=== PATIENT | female | born 2005 | race Caucasian/White ===

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

== ENCOUNTER 2024-10-14 12:12 | Outpatient (CLI) | payer MEDICAID, SELFPAY ==
[2024-10-14 12:27] VITALS: BP 126/76; PULSE 102
[2024-10-14 12:48] VITALS: BP 123/77; PULSE 81
[2024-10-14 13:07] VITALS: BP 119/81; PULSE 97
== END 2024-10-14 13:22 | disposition home or self-care (01) ==
LOC: OPOB 12:17 → OBGYN 12:17
PROVIDERS: Visit Provider Family Medicine
DX: O36.5990 Maternal care for other known or suspected poor fetal growth, unspecified trimester, not applicable or unspecified (principal); Z3A.00 Weeks of gestation of pregnancy not specified
CPT/HCPCS: 59025; 99211

== ENCOUNTER 2024-10-17 08:29 | Outpatient (CLI) | payer MEDICAID, SELFPAY ==
[2024-10-17 08:38] VITALS: RESP 14
[2024-10-17 08:39] VITALS: BMI 20.2
[2024-10-17 09:04] VITALS: BP 120/75; PULSE 101
[2024-10-17 09:20] VITALS: BP 120/75; PULSE 101; O2SAT 98
== END 2024-10-17 09:20 | disposition home or self-care (01) ==
LOC: OPOB 08:29 → OBGYN 08:46
PROVIDERS: Visit Provider Family Medicine
DX: O36.5990 Maternal care for other known or suspected poor fetal growth, unspecified trimester, not applicable or unspecified (principal); Z3A.00 Weeks of gestation of pregnancy not specified
CPT/HCPCS: 59025

== ENCOUNTER 2024-10-21 14:25 | Outpatient (CLI) | payer BC, MEDICAID, SELFPAY ==
[2024-10-21 14:25] VITALS: BMI 20.7
[2024-10-21 14:35] VITALS: BP 122/69; PULSE 100
[2024-10-21 14:50] VITALS: BP 118/69; PULSE 91
== END 2024-10-21 15:00 | disposition home or self-care (01) ==
LOC: OPOB 14:30 → OBGYN 14:32
PROVIDERS: Visit Provider Family Medicine
DX: O36.5990 Maternal care for other known or suspected poor fetal growth, unspecified trimester, not applicable or unspecified (principal); Z3A.00 Weeks of gestation of pregnancy not specified
CPT/HCPCS: 59025

== ENCOUNTER 2024-10-24 11:23 | Outpatient (CLI) | payer BC, MEDICAID, SELFPAY ==
[2024-10-24 11:31] VITALS: BP 119/71; PULSE 82
[2024-10-24 11:40] VITALS: BP 119/59; PULSE 93; RESP 15; BMI 20.6
[2024-10-24 11:50] VITALS: BP 107/58; PULSE 85
[2024-10-24 12:00] VITALS: BP 104/57; PULSE 84
[2024-10-24 12:10] VITALS: BP 107/55; PULSE 83
[2024-10-24 12:20] VITALS: BP 107/55; PULSE 85; RESP 14
== END 2024-10-24 12:20 | disposition home or self-care (01) ==
LOC: OPOB 11:24 → OBGYN 11:25
PROVIDERS: Visit Provider Family Medicine
DX: O36.5990 Maternal care for other known or suspected poor fetal growth, unspecified trimester, not applicable or unspecified (principal); Z3A.00 Weeks of gestation of pregnancy not specified
CPT/HCPCS: 59025

== ENCOUNTER 2024-10-28 15:01 | Outpatient (CLI) | payer BC, MEDICAID, SELFPAY ==
[2024-10-28 14:57] VITALS: BMI 20.2
[2024-10-28 15:07] VITALS: BP 126/91; PULSE 93
[2024-10-28 15:23] VITALS: BP 121/81; PULSE 89
[2024-10-28 15:31] VITALS: BP 121/81; PULSE 89; RESP 17; O2SAT 98
== END 2024-10-28 15:31 | disposition home or self-care (01) ==
LOC: OPOB 15:01 → OBGYN 15:02
PROVIDERS: Visit Provider Family Medicine
DX: O36.5990 Maternal care for other known or suspected poor fetal growth, unspecified trimester, not applicable or unspecified (principal); Z3A.00 Weeks of gestation of pregnancy not specified
CPT/HCPCS: 59025; 99211

== ENCOUNTER 2024-10-31 08:37 | Outpatient (CLI) | payer BC, MEDICAID, SELFPAY ==
[2024-10-31 08:43] VITALS: BP 135/81; PULSE 75
[2024-10-31 09:03] VITALS: BP 123/78; PULSE 90
== END 2024-10-31 09:24 | disposition home or self-care (01) ==
LOC: OPOB 08:38 → OBGYN 08:39
PROVIDERS: Absent Provider Family Medicine; Visit Provider Family Medicine
DX: O36.5990 Maternal care for other known or suspected poor fetal growth, unspecified trimester, not applicable or unspecified (principal); Z3A.00 Weeks of gestation of pregnancy not specified
CPT/HCPCS: 59025

== ENCOUNTER 2024-11-02 00:14 | Outpatient (CLI) | payer BC, MEDICAID, SELFPAY ==
[2024-11-02 00:22] VITALS: BMI 20.7
[2024-11-02 00:35] VITALS: BP 143/87; PULSE 109
[2024-11-02 00:50] VITALS: BP 127/82; PULSE 110
[2024-11-02 01:06] VITALS: BP 118/74; PULSE 92
[2024-11-02 01:14] VITALS: BP 118/74; PULSE 92; RESP 16; O2SAT 98
== END 2024-11-02 01:17 | disposition home or self-care (01) ==
LOC: OPOB 00:18 → OBGYN 00:19
PROVIDERS: Visit Provider Family Medicine
DX: O26.899 Other specified pregnancy related conditions, unspecified trimester (principal); Z3A.00 Weeks of gestation of pregnancy not specified; R10.9 Unspecified abdominal pain
CPT/HCPCS: 59025; 99211

== ENCOUNTER 2024-11-04 11:26 | Outpatient (CLI) | payer BC, MEDICAID, SELFPAY ==
[2024-11-04 11:30] VITALS: BMI 21.0
[2024-11-04 11:46] VITALS: BP 120/78; PULSE 78
[2024-11-04 12:00] VITALS: BP 128/86; PULSE 85
[2024-11-04 12:15] VITALS: BP 128/86; PULSE 85; RESP 16
== END 2024-11-04 12:15 | disposition home or self-care (01) ==
LOC: OPOB 11:27 → OBGYN 11:32
PROVIDERS: Visit Provider Family Medicine
DX: O36.5990 Maternal care for other known or suspected poor fetal growth, unspecified trimester, not applicable or unspecified (principal); Z3A.00 Weeks of gestation of pregnancy not specified
CPT/HCPCS: 59025; 99211

== ENCOUNTER 2024-11-06 07:52 | Inpatient (IN) | payer BC, MEDICAID, SELFPAY ==
[2024-11-06] VITALS (73 sets, daily range): BP systolic 79–153; BP diastolic 45–97; PULSE 58–116; RESP 16; TEMP 36.6–36.8; O2SAT 100; BMI 21.1
[2024-11-06 08:32] LABS: Hematocrit 30.5 % (36-47); Hemoglobin 9.60 g/dL (12.4-14.8); Mean Corpuscular HGB Conc 31.5 g/dL (30-55); Mean Corpuscular Hemoglobin 23.4 pg (27-33); Mean Corpuscular Volume 74.2 fl (85-98); Nucleated Red Blood Cells % 0 %; Platelet Count 273 10^3/cmm (157-399); Red Blood Count 4.11 10^6/uL (3.85-5.65); White Blood Count 8.00 10^3/uL (4.5-13.0)
[2024-11-06] MEDS: oxytocin 30 UNIT/500 ML BAG IV (09:00)
[2024-11-06 09:18] LABS: PCP Screen Urine Negative (Negative)
[2024-11-06] MEDS: ROPivacaine syringe 100 MG/50 ML SYRINGE 10 MG EPIDURAL (15:35)
--- NOTE | 2024-11-06 15:39 | ANES.PREANE2 ---
Pre-Anesthetic Assessment Height/Weight: Height 1.65 m Weight 57.606 kg Temp Pulse Resp BP Pulse Ox O2 Del Method 98.3 F 72 16 131/81 100 Room Air 11/06/24 10:00 11/06/24 15:36 11/06/24 10:00 11/06/24 15:36 11/06/24 15:33 11/06/24 07:45 Preop Diagnosis: IUP labor epidural Familial anesthetic complications: none Was Beta Wilton taken within 24 hours: N/A Was Clonidine taken within 24 hours: N/A Social No alcohol and No tobacco Exam alert, oriented x 3 and clear to auscultation bilaterally Airway Mallampati: Class I Dentition: full (poor dentition) History/ROS No significant history except as noted Pulmonary None reported CV/HEM None reported None reported Hepatic None reported GI Gastroesophageal Reflux Disease Metabolic None reported Musc/skel None reported Neuropsych None reported Anesthetic Plan ASA status: 2 Anesthesia: Anesthesia Evaluation and Regional (specify below) (epidural ) Risk of > 500 ml blood loss (7ml/kg in children): Yes, adequate IV access and fluids planned Medications/Allergies Home Medications ?Medication ?Instructions ?Recorded ?Confirmed ?Last Taken ?Type 1 cap PO DAILY 10/21/24 11/06/24 11/03/24 20:00 History Tums 1,000 mg PO QID PRN Heartburn 10/21/24 11/06/24 10/20/24 History Zofran 4 mg PO TID PRN Nausea And Vomiting 10/21/24 11/06/24 Unknown History Allergies Allergy/AdvReac Type Severity Reaction Status Date / Time No Known Allergies Allergy Verified 11/06/24 10:38 Current Medications Generic Name Dose Route Start Last Admin Trade Name Freq PRN Reason Stop Dose Admin Dextrose/Lactated Ringer's 1,000 mls @ 125 mls/hr 11/06/24 08:30 11/06/24 14:22 Dextrose 5%-Lactated Ringers IV 0 mls/hr .Q8H ROBERT Infusion Oxytocin 30 unit in 500 mls @ 1 mls/hr 11/06/24 08:30 11/06/24 13:00 Pitocin IV 13 milliunit/min .Q24H ROBERT 13 mls/hr Protocol Titration 1 MILLIUNIT/MIN Lactated Ringer's 1,000 mls @ 999 mls/hr 11/06/24 12:35 11/06/24 15:26 Lactated Ringers IV 999 mls/hr .Q1H1M PRN Administration See label comments Ropivacaine 100 mg in 50 mls @ 10 mls/hr 11/06/24 12:45 11/06/24 15:35 Naropin Syringe EPIDURAL 10 mls/hr .Q5H ROBERT Administration PFSH Anesthesia Medical History (Updated 11/06/24 @ 19:47 by Jerri Murphy MD) No pertinent past medical history neghx:htn,dm,thyroid,dvt/pe PCP: none Surgical History No pertinent past surgical history Family History Family/Other Breast cancer paternal aunt Denies family history of Colon cancer Ovarian cancer Diabetes Heart disease Hypertension Uterine cancer Thyroid disease Stroke Hyperchloremia Social History Smoking and tobacco/nicotine status: current every day tobacco/nicotine user Female Reproductive History : 2 Data Anesthesia 11/06/24 08:09 Short CBC 11/06/24 Range/Units 08:09 WBC 8.00 (4.5-13.0) 10^3/uL Hgb 9.60 L (12.4-14.8) g/dL Hct 30.5 L (36-47) % MCV 74.2 L (85-98) fl Plt Count 273 (157-399) 10^3/cmm Neut % (Auto) 69.6 % Neut # (Auto) 5.58 (1.8-8.0) 10^3/uL Blood Bank 11/06/24 08:09 Blood Type A Positive Rho(D) Type Rh positive Antibody Screen Negative Anesthesia Procedures Epidural Time Out Performed: Yes Consents Signed: Procedure Consent Consent: requested by attending/covering physician, from patient, risks and benefits reviewed and patient agrees to proceed Lumbar Level: L4-L5 Epidural position: sitting Epidural procedure: sterile prep of area, 1% lidocaine to numb the area, 18 g needle, negative for paresthesia passed, neg for paresthesia, test dose given, 1.5% xylocaine 1:200k epi, 0.2% Ropivacaine bolus ml (5), placed PCEA, no systemic response, sterile dressing applied, L.U.D. no apparent complications and 0.2% Ropiavacaine @ mls/hr (10) Additional Comments: 1st attempt +CSF, 2nd attempt at L4/5 ANUJ 3.5cm, catheter easily threaded to 8cm, pt tolerated well, VS remained, pt reporting adequate analgesia with epidural
[2024-11-06] MEDS: ondansetron 2 mg/ML SDV 2 mL 4 MG IVP (18:26)
--- NOTE | 2024-11-06 19:39 | PM.OPHPUD ---
Labor & Delivery H&P Update Date of Procedure: November 06, 2024 Date H&P Performed: 11/03/24 Admission Diagnosis: Preop diagnosis: IUP at 39 weeks 1 day gestation Primary indication for procedure: Elective induction
--- NOTE | 2024-11-06 19:41 | P.PCNOB_ITS ---
Delivery Note: Date of delivery: November 06, 2024 Procedure: Normal spontaneous vaginal delivery Delivering Physician: Jerri Murphy MD Estimated blood loss (mL): 200 Pre-Delivery Course: The patient had routine care at [facility]. labs: Blood type A+ antibody negative, hepatitis B nonreactive, hepatitis C nonreactive, HIV nonreactive, rubella nonimmune, gonorrhea negative, chlamydia positive -treated- with 2 negative test of cures, RPR nonreactive, UDS positive for marijuana, Q denice low risk, she passed her glucose tolerance test, she was GBS negative. Delivery: This is a 19-year-old G2, P1 at 39 weeks 1 day gestation who was admitted for an elective induction. The patient's was complicated by third trimester borderline IUGR. I say borderline IUGR because 2 out of 4 measurements were less than the 5th percentile (one of them being abdominal circumference) however the overall estimated weight was greater than the 10th percentile. She was receiving twice weekly NSTs. The patient was tired of being and wished to be induced at 39 weeks. Her cervix was favorable and she was started on Pitocin. She received an epidural for pain management. She underwent artificial rupture of membranes at 7 cm dilation. She had clear fluid. Rupture of membranes was about 3 hours prior to delivery. she only had to push through 3 contractions and had a normal spontaneous vaginal delivery of a viable female weight 2770 g, 6 pounds 2 ounces, Apgars 8 and 9 over an intact perineum. The was suctioned at delivery and placed on the mother's chest. The cord was clamped and cut. The placenta was delivered grossly intact and normal to inspection. There were no lacerations. Mother and were doing well after delivery. History History History 1 Term 1 0 Miscarriages/Ectopic 0 Living Children 1 A&P Assessment and plan 1. Normal spontaneous vaginal delivery: PDMP PDMP Reviewed: Not Reviewed Coding Level of Care Code Acute Code for Chg Fwd Diagnoses Normal spontaneous vaginal delivery O80
[2024-11-06] MEDS: benzocaine-menthol 78 gm Canister 1 SPRAY TOPICAL (22:59)
[2024-11-07 00:19] VITALS: BP 125/77; PULSE 78; RESP 17; O2SAT 98
[2024-11-07 02:08] VITALS: BP 136/80; PULSE 80; RESP 16; O2SAT 99
--- NOTE | 2024-11-07 06:03 | PC.NURSE ---
mom band scanned for blood sugar
--- NOTE | 2024-11-07 08:35 | ANE.PACU2 ---
Inpatient post-anesthesia follow up: Airway intact: Yes Vital signs: Temperature 98.3 F Pulse Rate 68 Respiratory Rate 17 Blood Pressure 120/72 Pulse Oximetry 97 Oxygen Delivery Me thod Room Air Oxygen Flow Rate Fraction of Inspir ed Oxygen Hydration adequate: Yes Nausea and vomiting: No Pain level: 1 Mental status: Baseline Additional Comments: currently denies headache Epidural Start/End: Epidural Start Date: 11/06/24 Epidural Start Time: 15:20 Epidural End Date: 11/06/24 Epidural End Time: 22:30
--- NOTE | 2024-11-07 08:53 | PM.DCS ---
Discharge Providers Date of Admission: 11/06/24 07:52 Date of Discharge: November 07, 2024 Attending Provider at Admission: Jerri Murphy MD Attending Provider at Discharge: Jerri Murphy MD Diagnoses at Discharge Discharge Diagnosis 1. Normal spontaneous vaginal delivery: Reason for Visit Reason for Visit: IOL Hospital Course Hospital Course This is a 19-year-old G2 now P2 who was admitted for an elective induction at 39 weeks gestation. She had a normal spontaneous vaginal delivery of a viable female infant. Mother has done well . She is ambulating and tolerating a regular diet. She has average vaginal bleeding. If she continues to do well throughout the day she may be discharged at the 24-hour point. Physical Exam Narrative: Alert and oriented sitting up in bed watching TV, heart regular rate and rhythm, lungs clear to auscultation bilaterally, abdomen is soft and nontender, fundus is firm and well below the umbilicus, extremities have no edema and no calf tenderness Urinary Catheter Management: Mera: Cath Placed During This Visit: yes Reason for Continuing Indwelling Catheter: Required Immobilization for Trauma or Surgery or Anesthesia Urinary Catheter Date of Insertion: 11/06/24 Urinary Catheter Time of Insertion: 16:00 Discharge Data Studies Completed and Pending Pending at discharge Category Date Time Status Hemagram Timed Lab 11/07/24 07:48 Uncollected Laboratory Results WBC 8.00 10^3/uL (4.5-13.0) 11/06/24 08:09 RBC 4.11 10^6/uL (3.85-5.65) 11/06/24 08:09 Hgb 9.60 g/dL (12.4-14.8) L 11/06/24 08:09 Hct 30.5 % (36-47) L 11/06/24 08:09 MCV 74.2 fl (85-98) L 11/06/24 08:09 MCH 23.4 pg (27-33) L 11/06/24 08:09 MCHC 31.5 g/dL (30-55) 11/06/24 08:09 RDW 13.5 % (12.1-15.1) 11/06/24 08:09 Plt Count 273 10^3/cmm (157-399) 11/06/24 08:09 MPV 11.4 fL (7.4-10.4) H 11/06/24 08:09 Neut % (Auto) 69.6 % 11/06/24 08:09 Lymph % (Auto) 19.8 % 11/06/24 08:09 Larue % (Auto) 8.6 % 11/06/24 08:09 Eos % (Auto) 1.4 % 11/06/24 08:09 Baso % (Auto) 0.3 % 11/06/24 08:09 Neut # (Auto) 5.58 10^3/uL (1.8-8.0) 11/06/24 08:09 Lymph # (Auto) 1.6 10^3/uL (1.5-6.5) 11/06/24 08:09 Larue # (Auto) 0.7 10^3/uL (0.2-0.9) 11/06/24 08:09 Eos # (Auto) 0.1 10^3/uL (0.0-0.8) 11/06/24 08:09 Baso # (Auto) 0.0 10^3/uL (0.0-0.1) 11/06/24 08:09 Nucleated RBC % (auto) 0 % 11/06/24 08:09 Nucleated RBCs # 0.0 /100WBC 11/06/24 08:09 POC Glucose 55 mg/dL (70-110) L 11/07/24 05:44 Urine Opiates Screen Negative ng/mL (Negative) 11/06/24 08:30 Ur Barbiturates Screen Negative ng/mL (Negative) 11/06/24 08:30 Ur Phencyclidine Scrn Negative ng/mL (Negative) 11/06/24 08:30 Ur Amphetamines Screen Negative ng/mL (Negative) 11/06/24 08:30 U Benzodiazepines Scrn Negative ng/mL (Negative) 11/06/24 08:30 Urine Cocaine Screen Negative ng/mL (Negative) 11/06/24 08:30 U Marijuana (THC) Screen Positive ng/mL (Negative) H 11/06/24 08:30 Blood Type A Positive 11/06/24 08:09 Rho(D) Type Rh positive 11/06/24 08:09 Antibody Screen Negative 11/06/24 08:09 Vitals Last Vital Signs Temp 98.0 F 11/06/24 19:08 Pulse 80 11/07/24 02:08 Resp 16 11/07/24 02:08 BP 136/80 11/07/24 02:08 Pulse Ox 99 11/07/24 02:08 O2 Del Method Room Air 11/07/24 02:08 Discharge Plan Discharge Patient Disposition: Home Condition: Stable Prescriptions: Continued capsule 1 cap PO DAILY Tums tablet 1,000 mg PO QID PRN (Reason: Heartburn) Zofran 4 mg PO TID PRN (Reason: Nausea And Vomiting) Discharge Order = DC NOW: Discharge Order (Routine); Ordered 11/07/24 Ordered By: Jerri Murphy Referrals: Jerri Murphy MD [Physician, Family Practice] - 1 month Discharge Diet: Usual diet Discharge Activity: Limit activity as instructed Patient Instructions: Opioid Safety, Patient Portal & Phoebe Instructions Activity Restrictions/Additional Instructions: Nothing per vagina for 6 weeks.follow-up in 4 weeks Discharge Attestations Time Spent in Discharge Care*: less than 30 min Quality Metrics Clinical Quality Measures [ No reported AMI, CVA or VTE this stay] Coding Level of Care Code Acute Code for Chg Fwd Diagnoses Normal spontaneous vaginal delivery O80
--- NOTE | 2024-11-07 09:23 | PC.NURSE ---
daiana from [facility] at bedside
[2024-11-07 09:32] VITALS: BP 131/84; PULSE 80; RESP 17; TEMP 36.7
[2024-11-07] MEDS: PRENATAL VIT NO.130/IRON/FOLIC 1 EACH TABLET PO (09:59)
[2024-11-07 10:02] LABS: Hematocrit 28.4 % (36-47); Hemoglobin 8.90 g/dL (12.4-14.8); Mean Corpuscular HGB Conc 31.3 g/dL (30-55); Mean Corpuscular Hemoglobin 23.9 pg (27-33); Mean Corpuscular Volume 76.1 fl (85-98); Platelet Count 202 10^3/cmm (157-399); Red Blood Count 3.73 10^6/uL (3.85-5.65); White Blood Count 12.61 10^3/uL (4.5-13.0)
[2024-11-07 16:30] VITALS: BP 145/87; PULSE 86; RESP 17; TEMP 36.7
[2024-11-07 20:49] VITALS: BP 120/72; PULSE 68; RESP 17; TEMP 36.8; O2SAT 97
--- NOTE | 2024-11-07 20:54 | PC.NURSE ---
certificate not completed at time of mother discharge, baby not being discharged until morning.
== END 2024-11-07 21:02 | disposition home or self-care (01) | DRG 807 ==
LOC: OBGYN 07:53
PROVIDERS: Admitting Provider Family Medicine; Visit Provider Family Medicine
DX: O36.5930 Maternal care for other known or suspected poor fetal growth, third trimester, not applicable or unspecified (principal); Z37.0 Single live birth; Z3A.39 39 weeks gestation of pregnancy; O99.62 Diseases of the digestive system complicating childbirth; K21.9 Gastro-esophageal reflux disease without esophagitis; O99.334 Smoking (tobacco) complicating childbirth; F17.290 Nicotine dependence, other tobacco product, uncomplicated
CPT/HCPCS: 36415; 36416; 51702; 59025; 59409; 80306; 82962; 85025; 85027; 86850; 86900; 96374; J2405; J2590; J2795; J7120; J7121; J9999

== ENCOUNTER 2024-11-08 13:29 | Emergency (ER) | payer BC, MEDICAID, SELFPAY ==
--- OUTSIDE RECORDS SUMMARY | 2024-04-14 06:30 | XMS_ITS ---
Author Organization [facility] Address [address] [place] [address] Care Team Providers Care Spinning Frame Fixer Name Role Phone Silvia Diandra Unavailable [phone] REASON FOR VISIT V&D Encounters Encounter Location Date Provider Diagnosis [place] [address] [place] [address] 04/14/2024 Diandra Vega Plan Of Treatment No Information Progress Notes * Yi SUMMERShDOB: 5 (19 yo F)Acc No.[id number]:04/14/2024 Progress Notes Patient: Diane Zavala Provider: Pearl Vega MD :2005 A ge:18 Y S ex:Female Date:04/14/2024 Address:[address] [place], [place] [phone] Subjective: * Chief Complaints: * V &D Billing Information: * Procedure Codes: * Electronic signature of Brendan Vega MD on 11/08/2024 at 01:36 PM CDT Sign off status: Pending * Provider: Pearl Vega MD Date: 0 04/14/2024 Generated for Kasia coleman/Sunshine/eTransmitting on: 0 11/08/2024 01:36 PM CDT
--- OUTSIDE RECORDS SUMMARY | 2024-04-17 08:30 | XMS_ITS ---
Author Organization [facility] Address [address] [place] [address] Care Team Providers Care Barn Worker Name Role Phone Diandra Vega Unavailable [phone] REASON FOR VISIT after u/s Encounters Encounter Location Date Provider Diagnosis [place] [address] [place] [address] 04/17/2024 Diandra Vega Plan Of Treatment No Information Progress Notes * Yi SUMMERShDOB: 5 (19 yo F)Acc No.[id number]:04/17/2024 Patient: Diane Zavala Provider: Pearl Vega MD :2005 A ge:18 Y S ex:Female Date:04/17/2024 Address:[address] [place], [place] [id number] Subjective: * Chief Complaints: * A fter u/s * Electronic signature of Brendan Vega MD on 11/08/2024 at 01:36 PM CDT Sign off status: Pending * Provider: Pearl Vega MD Date: 0 04/17/2024 Generated for Kasia coleman/Sunshine/eTransmitting on: 0 11/08/2024 01:36 PM CDT
[2024-11-08 13:32] VITALS: BP 110/71; PULSE 76; RESP 18; TEMP 36.7; O2SAT 99; BMI 18.3
--- OUTSIDE RECORDS SUMMARY | 2024-11-08 13:36 | XMS_ITS | Encounter Summary ---
Author Organization [facility] Address [address] [place] [address] Care Team Providers Care Awning Spreader Name Role Phone Ok Blanco MD Primary Care Provider [phone] [phone] Encounter Details Date Type Department Care Team (Latest Contact Info) Description 06/05/2005 Outpatient [facility] [address] [place] [address] Zonia Ly, BORE MILL OPERATOR [address] [place] [address] Unspecified Otitis Media (Primary Dx) Social History Tobacco Use Types Packs/Day Years Used Date Smoking Tobacco: Never Assessed Comments Unknown Sex and Gender Information Value Date Recorded Sex Assigned at Not on file Legal Sex Female 4:08 AM EXERCISE SPECIALIST Gender Identity Not on file Sexual Orientation Not on file documented as of this encounter Plan of Treatment Not on file documented as of this encounter Visit Diagnoses Diagnosis Unspecified otitis media- Primary documented in this encounter Additional Health Concerns Infection Onset Date Last Indicated Resolved Time R/O COVID-19 12/12/2019 12/13/2019 12/15/2019 3:01 AM CDT R/O COVID-19 04/23/2020 04/23/2020 04/24/2020 6:22 AM EXERCISE SPECIALIST documented as of this encounter Care Teams Awning Spreader Relationship Specialty Start Date End Date Ok Blanco MD [address] [facility] [address] [place] [address] PCP - General Family Practice 11/20/18 documented as of this encounter
--- OUTSIDE RECORDS SUMMARY | 2024-11-08 13:36 | XMS_ITS | Encounter Summary ---
Author Organization [facility] Address [address] [place] [address] Care Team Providers Care Dealer Support Technician Name Role Phone Ok Blanco MD Primary Care Provider [phone] [phone] Encounter Details Date Type Department Care Team (Latest Contact Info) Description 03/13/2005 Outpatient Historical [facility] [address] [place] [phone] Zonia Ly, [facility] [address] [place] [phone] VACCINE FOR DTP + POLIO (Primary Dx); Vaccine for viral hepatitis Social History Tobacco Use Types Packs/Day Years Used Date Smoking Tobacco: Never Assessed Comments Unknown Sex and Gender Information Value Date Recorded Sex Assigned at Not on file Legal Sex Female 4:08 AM BUSINESS TECHNOLOGY TEACHER Gender Identity Not on file Sexual Orientation Not on file documented as of this encounter Plan of Treatment Not on file documented as of this encounter Visit Diagnoses Diagnosis Need for prophylactic vaccination with [id number] with poliomyelitis (DTP + polio) vaccine- Primary Vaccine for viral hepatitis Need for prophylactic vaccination and inoculation against viral hepatitis documented in this encounter Additional Health Concerns Infection Onset Date Last Indicated Resolved Time R/O COVID-19 12/12/2019 12/13/2019 12/15/2019 3:01 AM CDT R/O COVID-19 04/23/2020 04/23/2020 04/24/2020 6:22 AM BUSINESS TECHNOLOGY TEACHER documented as of this encounter Care Teams Dealer Support Technician Relationship Specialty Start Date End Date Ok Blanco MD [address] [address] PCP - General Family Practice 11/20/18 documented as of this encounter
--- OUTSIDE RECORDS SUMMARY | 2024-11-08 13:36 | XMS_ITS | Encounter Summary ---
Author Organization [facility] Address [address] Attn: [place] [address] Care Team Providers Care Cylinder Inspector And Tester Name Role Phone Ok Blanco MD Primary Care Provider [phone] [phone] Encounter Details Date Type Department Care Team (Late st Contact Info) Description 03/10/2005 Outpatient Historical Zonia Ly, HOME HEALTH PROVIDER [address] [place] [phone] Social History Tobacco Use Types Packs/Day Years Used Date Smoking Tobacco: Never Assessed Comments Unknown Sex and Gender Information Value Date Recorded Sex Assigned at Not on file Legal Sex Female 4:08 AM HEALTH CARE ANALYST Gender Identity Not on file Sexual Orientation Not on file documented as of this encounter Plan of Treatment Not on file documented as of this encounter Visit Diagnoses Not on filedocumented in this encounter Additional Health Concerns Infection Onset Date Last Indicated Resolved Time R/O COVID-19 12/12/2019 12/13/2019 12/15/2019 3:01 AM CDT R/O COVID-19 04/23/2020 04/23/2020 04/24/2020 6:22 AM HEALTH CARE ANALYST documented as of this encounter Care Teams Cylinder Inspector And Tester Relationship Specialty Start Date End Date Ok Blanco MD [address] [facility] [address] [place] [id number] PCP - General Family Practice 11/20/18 documented as of this encounter
--- OUTSIDE RECORDS SUMMARY | 2024-11-08 13:36 | XMS_ITS | Encounter Summary ---
Author Organization [facility] Address [address] [place] [address] Care Team Providers Care Metal Furnace Operator Name Role Phone Ok Blanco MD Primary Care Provider [phone] [phone] Encounter Details Date Type Department Care Team (Latest Contact Info) Description 04/06/2005 Outpatient Historical [facility] [place] [address] [address] Zonia Ly, PILOT [address] [place] [address] Respirat syncytial virus (Primary Dx) Social History Tobacco Use Types Packs/Day Years Used Date Smoking Tobacco: Never Assessed Comments Unknown Sex and Gender Information Value Date Recorded Sex Assigned at Not on file Legal Sex Female 4:08 AM BUS SYSTEM OPERATOR Gender Identity Not on file Sexual Orientation Not on file documented as of this encounter Plan of Treatment Not on file documented as of this encounter Visit Diagnoses Diagnosis Respirat syncytial virus- Primary Respiratory syncytial virus (RSV) documented in this encounter Additional Health Concerns Infection Onset Date Last Indicated Resolved Time R/O COVID-19 12/12/2019 12/13/2019 12/15/2019 3:01 AM CDT R/O COVID-19 04/23/2020 04/23/2020 04/24/2020 6:22 AM BUS SYSTEM OPERATOR documented as of this encounter Care Teams Metal Furnace Operator Relationship Specialty Start Date End Date Ok Blanco MD [address] [address] PCP - General Family Practice 11/20/18 documented as of this encounter
--- OUTSIDE RECORDS SUMMARY | 2024-11-08 13:36 | XMS_ITS | Encounter Summary ---
Author Organization [facility] Address [address] [place] [address] Care Team Providers Care Origination Specialist Name Role Phone Ok Blanco MD Primary Care Provider [phone] [phone] Encounter Details Date Type Department Care Team (Latest Contact Info) Description 05/02/2006 Outpatient Historical [facility] [id number] [place] [phone] Jaron Freedman MD [address] [place] [address] Acute Upper Respiratory Infections of Unspecified Site (Primary Dx) Social History Tobacco Use Types Packs/Day Years Used Date Smoking Tobacco: Never Assessed Comments Unknown Sex and Gender Information Value Date Recorded Sex Assigned at Not on file Legal Sex Female 4:08 AM GRAIN MERCHANDISER Gender Identity Not on file Sexual Orientation Not on file documented as of this encounter Plan of Treatment Not on file documented as of this encounter Visit Diagnoses Diagnosis Acute upper respiratory infections of unspecified site- Primary documented in this encounter Additional Health Concerns Infection Onset Date Last Indicated Resolved Time R/O COVID-19 12/12/2019 12/13/2019 12/15/2019 3:01 AM CDT R/O COVID-19 04/23/2020 04/23/2020 04/24/2020 6:22 AM GRAIN MERCHANDISER documented as of this encounter Care Teams Origination Specialist Relationship Specialty Start Date End Date Ok Blanco MD [address] [address] PCP - General Family Practice 11/20/18 documented as of this encounter
--- OUTSIDE RECORDS SUMMARY | 2024-11-08 13:36 | XMS_ITS | Encounter Summary ---
Author Organization [facility] Address [address] [place] [address] Care Team Providers Care Expeller Operator Name Role Phone Ok Blanco MD Primary Care Provider [phone] Encounter Details Date Type Department Care Team (Latest Contact Info) Description 05/22/2005 Outpatient Historical [facility] [address] [place] [address] Zonia Ly, TISSUE COORDINATOR [address] [place] [address] VACCINE FOR H FLU TYPE B (Primary Dx) Social History Tobacco Use Types Packs/Day Years Used Date Smoking Tobacco: Never Assessed Comments Unknown Sex and Gender Information Value Date Recorded Sex Assigned at Not on file Legal Sex Female 4:08 AM PROGRAM ADVOCATE Gender Identity Not on file Sexual Orientation Not on file documented as of this encounter Plan of Treatment Not on file documented as of this encounter Visit Diagnoses Diagnosis Need for prophylactic vaccination against Hemophilus influenza type B (Hib)- Primary documented in this encounter Additional Health Concerns Infection Onset Date Last Indicated Resolved Time R/O COVID-19 12/12/2019 12/13/2019 12/15/2019 3:01 AM CDT R/O COVID-19 04/23/2020 04/23/2020 04/24/2020 6:22 AM PROGRAM ADVOCATE documented as of this encounter Care Teams Expeller Operator Relationship Specialty Start Date End Date Ok Blanco MD [address] [facility] [address] [place] [phone] PCP - General Family Practice 11/20/18 documented as of this encounter
--- OUTSIDE RECORDS SUMMARY | 2024-11-08 13:36 | XMS_ITS | Encounter Summary ---
Author Organization [facility] Address [address] [place] [address] Care Team Providers Care Light Rail Operator Name Role Phone Ok Blanco MD Primary Care Provider [phone] [phone] Encounter Details Date Type Department Care Team (Latest Contact Info) Description 03/10/2005 Outpatient Historical [facility] [address] [place] [phone] Zonia Ly, COMMUNITY SUPPORT SPECIALIST [address] [place] [phone] DIARRHEA NOS (Primary Dx) Social History Tobacco Use Types Packs/Day Years Used Date Smoking Tobacco: Never Assessed Comments Unknown Sex and Gender Information Value Date Recorded Sex Assigned at Not on file Legal Sex Female 4:08 AM DIRECTOR DIGITAL SALES Gender Identity Not on file Sexual Orientation Not on file documented as of this encounter Plan of Treatment Not on file documented as of this encounter Visit Diagnoses Diagnosis Diarrhea- Primary documented in this encounter Additional Health Concerns Infection Onset Date Last Indicated Resolved Time R/O COVID-19 12/12/2019 12/13/2019 12/15/2019 3:01 AM CDT R/O COVID-19 04/23/2020 04/23/2020 04/24/2020 6:22 AM DIRECTOR DIGITAL SALES documented as of this encounter Care Teams Light Rail Operator Relationship Specialty Start Date End Date Ok Blanco MD [address] [facility] [address] [place] [phone] PCP - General Family Practice 11/20/18 documented as of this encounter
--- OUTSIDE RECORDS SUMMARY | 2024-11-08 13:36 | XMS_ITS | Encounter Summary ---
Author Organization [facility] Address [address] [place] [address] Care Team Providers Care Peoplesoft Crm Developer Name Role Phone Ok Blanco MD Primary Care Provider [phone] [phone] Encounter Details Date Type Department Care Team (Latest Contact Info) Description 04/17/2005 Outpatient Historical [facility] [address] [place] [address] Zonia Ly, SERVICE CREW SUPERVISOR [address] [place] [address] Respirat syncytial virus (Primary Dx) Social History Tobacco Use Types Packs/Day Years Used Date Smoking Tobacco: Never Assessed Comments Unknown Sex and Gender Information Value Date Recorded Sex Assigned at Not on file Legal Sex Female 4:08 AM ONLINE PUBLISHER Gender Identity Not on file Sexual Orientation [...] R/O COVID-19 04/23/2020 04/23/2020 04/24/2020 6:22 AM ONLINE PUBLISHER documented as of this encounter Care Teams Peoplesoft Crm Developer Relationship Specialty Start Date End Date Ok Blanco MD [address] [facility] [address] [place] [address] PCP - General Family Practice 11/20/18 documented as of this encounter
--- OUTSIDE RECORDS SUMMARY | 2024-11-08 13:36 | XMS_ITS | Encounter Summary ---
Author Organization [facility] Address [address] [place] [address] Care Team Providers Care Mobile Crane Operator Name Role Phone Ok Blanco MD Primary Care Provider +1 -[phone] Encounter Details Date Type Department Care Team (Latest Contact Info) Description 05/02/2006 Outpatient Historical [facility]- [id number] [place] [phone] Jaron Freedman MD [address] [place] [address] Viral Infection (Primary Dx) Social History Tobacco Use Types Packs/Day Years Used Date Smoking Tobacco: Never Assessed Comments Unknown Sex and Gender Information Value Date Recorded Sex Assigned at Not on file Legal Sex Female 4:08 AM LAUNCH MANAGER Gender Identity Not on file Sexual Orientation Not on file documented as of this encounter Plan of Treatment Not on file documented as of this encounter Visit Diagnoses Diagnosis Unspecified viral infection, in conditions classified elsewhere and of unspecified site- Primary documented in this encounter Additional Health Concerns Infection Onset Date Last Indicated Resolved Time R/O COVID-19 12/12/2019 12/13/2019 12/15/2019 3:01 AM CDT R/O COVID-19 04/23/2020 04/23/2020 04/24/2020 6:22 AM LAUNCH MANAGER documented as of this encounter Care Teams Mobile Crane Operator Relationship Specialty Start Date End Date Ok Blanoc MD [address] [address] PCP - General Family Practice 11/20/18 documented as of this encounter
--- OUTSIDE RECORDS SUMMARY | 2024-11-08 13:36 | XMS_ITS | Encounter Summary ---
Author Organization [facility] Address [address] [place] [address] Care Team Providers Care Reed Or Wind Instrument Tuner Name Role Phone Ok Blanco MD Primary Care Provider +1 -[phone] Encounter Details Date Type Department Care Team (Latest Contact Info) Description 09/18/2005 Outpatient Historical [facility] [address] [place] [address] Zonia Ly, LUNCHEONETTE MANAGER [address] [place] [address] Candidiasis of Unspecified Site (Primary Dx) Social History Tobacco Use Types Packs/Day Years Used Date Smoking Tobacco: Never Assessed Comments Unknown Sex and Gender Information Value Date Recorded Sex Assigned at Not on file Legal Sex Female 4:08 AM COMMERCIAL PROPERTY ADMINISTRATOR Gender Identity Not on file Sexual Orientation Not on file documented as of this encounter Plan of Treatment Not on file documented as of this encounter Visit Diagnoses Diagnosis Candidiasis of unspecified site- Primary documented in this encounter Additional Health Concerns Infection Onset Date Last Indicated Resolved Time R/O COVID-19 12/12/2019 12/13/2019 12/15/2019 3:01 AM CDT R/O COVID-19 04/23/2020 04/23/2020 04/24/2020 6:22 AM COMMERCIAL PROPERTY ADMINISTRATOR documented as of this encounter Care Teams Reed Or Wind Instrument Tuner Relationship Specialty Start Date End Date Ok Blanco MD [address] [facility] [address] [place] [address] PCP - General Family Practice 11/20/18 documented as of this encounter
--- OUTSIDE RECORDS SUMMARY | 2024-11-08 13:36 | XMS_ITS | Encounter Summary ---
Author Organization [facility] Address [address] [place] [address] Care Team Providers Care Rental Clerk Name Role Phone Ok Blanco MD Primary Care Provider +1 -[phone] Encounter Details Date Type Department Care Team (Latest Contact Info) Description 01/31/2005 Outpatient Historical [facility] [place] [address] [address] Zonia Ly, SPLICING MACHINE OPERATOR AUTOMATIC [address] [place] [address] ACUTE URI NOS (Primary Dx) Social History Tobacco Use Types Packs/Day Years Used Date Smoking Tobacco: Never Assessed Comments Unknown Sex and Gender Information Value Date Recorded Sex Assigned at Not on file Legal Sex Female 4:08 AM COMBINATION MACHINE TOOL OPERATOR Gender Identity Not on file Sexual [...] R/O COVID-19 04/23/2020 04/23/2020 04/24/2020 6:22 AM COMBINATION MACHINE TOOL OPERATOR documented as of this encounter Care Teams Rental Clerk Relationship Specialty Start Date End Date Ok Blanco MD [address] [address] PCP - General Family Practice 11/20/18 documented as of this encounter
--- OUTSIDE RECORDS SUMMARY | 2024-11-08 13:36 | XMS_ITS | Encounter Summary ---
Author Organization [facility] Address [address] [place] [address] Care Team Providers Care Wearing Apparel Folder Name Role Phone Ok Blanco MD Primary Care Provider +1 -[phone] Encounter Details Date Type Department Care Team (Latest Contact Info) Description 07/05/2005 Outpatient Historical [facility] [address] [place] [address] Zonia Ly, TAG WRITER [address] [place] [address] Unspecified Otitis Media (Primary Dx); Acute Pharyngitis Social History Tobacco Use Types Packs/Day Years Used Date Smoking Tobacco: Never Assessed Comments Unknown Sex and Gender Information Value Date Recorded Sex Assigned at Not on file Legal Sex Female 4:08 AM GENERATION ENGINEER Gender Identity Not on file Sexual Orientation Not on file documented as of this encounter Plan of Treatment Not on file documented as of this encounter Visit Diagnoses Diagnosis Unspecified otitis media- Primary Acute pharyngitis documented in this encounter Additional Health Concerns Infection Onset Date Last Indicated Resolved Time R/O COVID-19 12/12/2019 12/13/2019 12/15/2019 3:01 AM CDT R/O COVID-19 04/23/2020 04/23/2020 04/24/2020 6:22 AM GENERATION ENGINEER documented as of this encounter Care Teams Wearing Apparel Folder Relationship Specialty Start Date End Date Ok Blanco MD [address] [facility] [address] [place] [address] PCP - General Family Practice 11/20/18 documented as of this encounter
--- OUTSIDE RECORDS SUMMARY | 2024-11-08 13:36 | XMS_ITS | Encounter Summary ---
Author Organization [facility] Address [address] [place] [address] Care Team Providers Care Mac Operator Name Role Phone Ok Blanco MD Primary Care Provider +1 -[phone] Encounter Details Date Type Department Care Team (Latest Contact Info) Description 2004 Outpatient Historical [facility] [address] [place] [address] Zonia Ly, ALUMINUM CONTAINER TESTER [address] [place] [address] Routine child health exam (Primary Dx) Social History Tobacco Use Types Packs/Day Years Used Date Smoking Tobacco: Never Assessed Comments Unknown Sex and Gender Information Value Date Recorded Sex Assigned at Not on file Legal Sex Female 4:08 AM GEOPHYSICAL E LOGGER Gender Identity Not on file Sexual Orientation Not on file documented as of this encounter Plan of Treatment Not on file documented as of this encounter Visit Diagnoses Diagnosis Routine child health exam- Primary Routine infant or child health check documented in this encounter Additional Health Concerns Infection Onset Date Last Indicated Resolved Time R/O COVID-19 12/12/2019 12/13/2019 12/15/2019 3:01 AM CDT R/O COVID-19 04/23/2020 04/23/2020 04/24/2020 6:22 AM GEOPHYSICAL E LOGGER documented as of this encounter Care Teams Mac Operator Relationship Specialty Start Date End Date Ok Blanco MD [address] [facility] [address] [place] [address] PCP - General Family Practice 11/20/18 documented as of this encounter
--- OUTSIDE RECORDS SUMMARY | 2024-11-08 13:36 | XMS_ITS | Encounter Summary ---
Author Organization [facility] Address [address] [place] [address] Care Team Providers Care Senior Policy Analyst Name Role Phone Ok Blanco MD Primary Care Provider +1 -[phone] Encounter Details Date Type Department Care Team (Latest Contact Info) Description 02/20/2005 Outpatient Historical [facility] [address] [place] [address] Zonia Ly, SPORTS COMMENTATOR [address] [place] [address] ACUTE URI NOS (Primary Dx) Social History Tobacco Use Types Packs/Day Years Used Date Smoking Tobacco: Never Assessed Comments Unknown Sex and Gender Information Value Date Recorded Sex Assigned at Not on file Legal Sex Female 4:08 AM COSTUME DESIGN TEACHER Gender Identity Not on file Sexual [...] R/O COVID-19 04/23/2020 04/23/2020 04/24/2020 6:22 AM COSTUME DESIGN TEACHER documented as of this encounter Care Teams Senior Policy Analyst Relationship Specialty Start Date End Date Ok Blanco MD [address] [facility] [address] [place] [address] PCP - General Family Practice 11/20/18 documented as of this encounter
--- OUTSIDE RECORDS SUMMARY | 2024-11-08 13:36 | XMS_ITS | Encounter Summary ---
Author Organization [facility] Address [address] [place] [address] Care Team Providers Care Tile Roofer Name Role Phone Ok Blanco MD Primary Care Provider +1 -[phone] Encounter Details Date Type Department Care Team (Latest Contact Info) Description 06/07/2005 Outpatient Historical [facility] [address] [place] [address] Zonia Ly, STEEL BOX TOE INSERTER [address] [place] [address] Diarrhea (Primary Dx) Social History Tobacco Use Types Packs/Day Years Used Date Smoking Tobacco: Never Assessed Comments Unknown Sex and Gender Information Value Date Recorded Sex Assigned at Not on file Legal Sex Female 4:08 AM SPECIALTY SALES CONSULTANT Gender Identity Not on file Sexual Orientation Not on file documented as of this encounter Plan of Treatment Not on file documented as of this encounter Visit Diagnoses Diagnosis Diarrhea- Primary documented in this encounter Additional Health Concerns Infection Onset Date Last Indicated Resolved Time R/O COVID-19 12/12/2019 12/13/2019 12/15/2019 3:01 AM CDT R/O COVID-19 04/23/2020 04/23/2020 04/24/2020 6:22 AM SPECIALTY SALES CONSULTANT documented as of this encounter Care Teams Tile Roofer Relationship Specialty Start Date End Date Ok Blanco MD [address] [facility] [address] [place] [address] PCP - General Family Practice 11/20/18 documented as of this encounter
--- OUTSIDE RECORDS SUMMARY | 2024-11-08 13:36 | XMS_ITS | Encounter Summary ---
Author Organization [facility] Address [address] [place] [address] Care Team Providers Care Advertisement Compositor Name Role Phone Ok Blanco MD Primary Care Provider +1 -[phone] Encounter Details Date Type Department Care Team (Latest Contact Info) Description 03/29/2005 Outpatient Historical [facility] [address] [place] [phone] Zonia Ly, MANAGER EDUCATION [address] [place] [address] COUGH (Primary Dx) Social History Tobacco Use Types Packs/Day Years Used Date Smoking Tobacco: Never Assessed Comments Unknown Sex and Gender Information Value Date Recorded Sex Assigned at Not on file Legal Sex Female 4:08 AM LABORER CEMENT GUN PLACING Gender Identity Not on file Sexual Orientation Not on file documented as of this encounter Plan of Treatment Not on file documented as of this encounter Visit Diagnoses Diagnosis Cough- Primary documented in this encounter Additional Health Concerns Infection Onset Date Last Indicated Resolved Time R/O COVID-19 12/12/2019 12/13/2019 12/15/2019 3:01 AM CDT R/O COVID-19 04/23/2020 04/23/2020 04/24/2020 6:22 AM LABORER CEMENT GUN PLACING documented as of this encounter Care Teams Advertisement Compositor Relationship Specialty Start Date End Date Ok Blanco MD [address] [facility] [address] [place] [address] PCP - General Family Practice 11/20/18 documented as of this encounter
--- OUTSIDE RECORDS SUMMARY | 2024-11-08 13:36 | XMS_ITS | Encounter Summary ---
Author Organization [facility] Address [address] [place] [address] Care Team Providers Care Cell Repairer Name Role Phone Ok Blanco MD Primary Care Provider +1 -[phone] Encounter Details Date Type Department Care Team (Latest Contact Info) Description 09/27/2005 Outpatient Historical [facility] [address] [place] [phone] Zonia Ly, TOP POLISHER [address] [place] [address] Impetigo (Primary Dx) Social History Tobacco Use Types Packs/Day Years Used Date Smoking Tobacco: Never Assessed Comments Unknown Sex and Gender Information Value Date Recorded Sex Assigned at Not on file Legal Sex Female 4:08 AM CLIENT SERVICE ASSOCIATE Gender Identity Not on file Sexual Orientation Not on file documented as of this encounter Plan of Treatment Not on file documented as of this encounter Visit Diagnoses Diagnosis Impetigo- Primary documented in this encounter Additional Health Concerns Infection Onset Date Last Indicated Resolved Time R/O COVID-19 12/12/2019 12/13/2019 12/15/2019 3:01 AM CDT R/O COVID-19 04/23/2020 04/23/2020 04/24/2020 6:22 AM CLIENT SERVICE ASSOCIATE documented as of this encounter Care Teams Cell Repairer Relationship Specialty Start Date End Date Ok Blanco MD [address] [place] [address] PCP - General Family Practice 11/20/18 documented as of this encounter
--- OUTSIDE RECORDS SUMMARY | 2024-11-08 13:36 | XMS_ITS | Patient Health Record ---
Author Organization [facility] Address [address] [place] [address] Care Team Providers Care Bpo Specialist Name Role Phone Diandra Vega Unavailable [phone] Reason For Referral No Information Encounters Encounter Location Date Provider Diagnosis [place] [address] [place] [address] 03/05/2024 Diandra Vega Plan Of Treatment No Information Insurance Providers Payer Name Payer Address Payer Phone Subscriber Number Group Number Insured Name Patient Relationship to Insured Coverage Start Date Coverage End Date Home State Health Plan Medicaid Replacement [address] [place] [address] [id number] Diane Summers Self - patient is the insured [place] Medicaid [address] [place] [address] [id number] Diane Summers Self - patient is the insured
--- OUTSIDE RECORDS SUMMARY | 2024-11-08 13:36 | XMS_ITS | Encounter Summary ---
Author Organization [facility] Address [address] [place] [address] Care Team Providers Care Collet Gluer Name Role Phone Ok Blanco MD Primary Care Provider +1 -[phone] Encounter Details Date Type Department Care Team (Late st Contact Info) Description 04/03/2005 Inpatient Historical [facility] Judy Villeda MD [address] [place] [address] ACUTE BRONCHIOLITIS/OTHR INFECT ORG (Primary Dx) Social History Tobacco Use Types Packs/Day Years Used Date Smoking Tobacco: Never Assessed Comments Unknown Sex and Gender Information Value Date Recorded Sex Assigned at Not on file Legal Sex Female 4:08 AM CORE BLOWER OPERATOR Gender Identity Not on file Sexual Orientation Not on file documented as of this encounter Plan of Treatment Not on file documented as of this encounter Procedures Procedure Name Priority Date/Time Associated Diagnosis Comments DIFFERENTIAL, MANUAL Routine 04/03/2005 2:38 PM CORE BLOWER OPERATOR CBC WITH DIFFERENTIAL Routine 04/03/2005 2:38 PM CORE BLOWER OPERATOR BASIC METABOLIC PANEL Routine 04/03/2005 2:37 PM CORE BLOWER OPERATOR documented in this encounter Results * (ABNORMAL) DIFFERENTIAL, MANUAL (04/03/2005 2:38 PM CORE BLOWER OPERATOR) NEUTROPHILS, SEG 45(H) 15 - 35 % INT ERFACE SYSTEM BANDS 9 5 - 10 % INTERFACE SYSTEM LYMPHOCYTES 38(L) 46 - 78 % INTERFAC E SYSTEM MONOCYTE 8 4 - 10 % INTERFACE SYSTEM PLATELET EST. Increased (A) Normal INTERFACE SYSTEM RBC MORPHOLOGY Abnormal( A) Normal INTERFACE SYSTEM ANISOCYTOSIS 1+(A) None Seen INTERFA CE SYSTEM POLYCHROMASIA 1+(A) None Seen INTERF MARLI SYSTEM MICROCYTES 1+(A) None Seen INTERFACE SYSTEM 04/03/2005 2:38 PM CORE BLOWER OPERATOR Judy Villeda MD HEMATOLOGY ORDERABLES COM Fin al Result Performing Organization Address City/[facility] de Phone Number INTERFACE SYSTEM Refer to clinic/hospital department * (ABNORMAL) CBC WITH DIFFERENTIAL (04/03/2005 2:38 PM CORE BLOWER OPERATOR) WBC 21.5(H) 5.0 - 21.0 K/ul INTERFACE SYSTEM RBC 4.46(H) 3.10 - 4.20 Mil/ul INTERFACE SYSTEM HEMOGLOBIN 11.4 10.4 - 12.0 g/dL INTERFACE SYSTEM HEMATOCRIT 33.1(L) 34.0 - 41.0 % INTERFACE SYSTEM MCV 74.2(L) 86.0 - 104.0 Fl INTERFACE SYSTEM MCH 25.6(L) 29.0 - 35.0 pg INTERFACE SYSTEM MCHC 34.4(H) 28.0 - 32.0 g/dL INTERFACE SYSTEM RDW 13.1 11.0 - 14.5 % INTERFACE SYSTEM PLATELETS 486(H) 140 - 440 K/ul INTERFACE SYSTEM MPV 9.1 8.9 - 12.8 Fl INTERFACE SYSTEM 04/03/2005 2:38 PM CORE BLOWER OPERATOR Judy Villeda MD HEMATOLOGY ORDERABLES Final R esult Performing Organization Address City/[facility] de Phone Number INTERFACE SYSTEM Refer to clinic/hospital department * (ABNORMAL) BASIC METABOLIC PANEL (04/03/2005 2:37 PM CORE BLOWER OPERATOR) GLUCOSE 89 60 - 100 mg/dL INTERFACE SYSTEM BUN 5(L) 7 - 17 mg/dL INTERFACE SYSTEM CREATININE 0.2 0.2 - 0.7 mg/dL INTERFACE SYSTEM SODIUM 141 136 - 145 mEq/L INTERFACE SYSTEM POTASSIUM 4.8 3.5 - 5.0 mEq/L INTERFACE SYSTEM CHLORIDE 105 95 - 110 mEq/L INTERFACE SYSTEM CO2 26 22 - 32 mmol/l INTERFACE SYSTEM ANION GAP 15 9 - 20 mEq/L INTERFACE SYSTEM OSMOLALITY, CALCULATED 288 275 - 295 mOsm/Kg INTERFACE SYSTEM CALCIUM 9.5 8.4 - 10.5 mg/dL INTERFACE SYSTEM 04/03/2005 2:37 PM CORE BLOWER OPERATOR Judy Villeda MD CHEMISTRY ORDERABLES Final Re sult INTERFACE SYSTEM Refer to clinic/hospital department documented in this encounter Visit Diagnoses Diagnosis Acute bronchiolitis due to other infectious organisms- Primary documented in this encounter Additional Health Concerns Infection Onset Date Last Indicated Resolved Time R/O COVID-19 12/12/2019 12/13/2019 12/15/2019 3:01 AM CDT R/O COVID-19 04/23/2020 04/23/2020 04/24/2020 6:22 AM CORE BLOWER OPERATOR documented as of this encounter Care Teams Collet Gluer Relationship Specialty Start Date End Date Ok Blanco MD [address] [phone] PCP - General Family Practice 11/20/18 documented as of this encounter
--- OUTSIDE RECORDS SUMMARY | 2024-11-08 13:36 | XMS_ITS | Encounter Summary ---
Author Organization [facility] Address [address] [place] [address] Care Team Providers Care Patient Experience Coordinator Name Role Phone Ok Blanco MD Primary Care Provider +1 -[phone] Encounter Details Date Type Department Care Team (Latest Contact Info) Description 04/03/2005 Outpatient Historical [facility] [address] [place] [address] Zonia Ly, [facility] [address] [place] [address] CHRONIC AIRWAY OBSTRUCTION NEC (CMS/[facility]) (Primary Dx) Social History Tobacco Use Types Packs/Day Years Used Date Smoking Tobacco: Never Assessed Comments Unknown Sex and Gender Information Value Date Recorded Sex Assigned at Not on file Legal Sex Female 4:08 AM PRESSER FIRST Gender Identity Not on file Sexual Orientation Not on file documented as of this encounter Plan of Treatment Not on file documented as of this encounter Visit Diagnoses Diagnosis Chronic airway obstruction, not elsewhere classified (CMS/HCC)- Primary Chronic airway obstruction, not elsewhere classified documented in this encounter Additional Health Concerns Infection Onset Date Last Indicated Resolved Time R/O COVID-19 12/12/2019 12/13/2019 12/15/2019 3:01 AM CDT R/O COVID-19 04/23/2020 04/23/2020 04/24/2020 6:22 AM PRESSER FIRST documented as of this encounter Care Teams Patient Experience Coordinator Relationship Specialty Start Date End Date Ok Blanco MD [address] [phone] PCP - General Family Practice 11/20/18 documented as of this encounter
--- OUTSIDE RECORDS SUMMARY | 2024-11-08 13:36 | XMS_ITS | Encounter Summary ---
Author Organization [facility] Address [address] [place] [address] Care Team Providers Care Supervisor Pressing Department Name Role Phone Ok Blanco MD Primary Care Provider +1 -[phone] Encounter Details Date Type Department Care Team (Latest Contact Info) Description 04/18/2006 Outpatient Historical [facility] [address] [place] [address] Zonia Ly, INFRASTRUCTURE PROJECT MANAGER [address] [place] [address] Streptococcal Sore Throat (Primary Dx) Social History Tobacco Use Types Packs/Day Years Used Date Smoking Tobacco: Never Assessed Comments Unknown Sex and Gender Information Value Date Recorded Sex Assigned at Not on file Legal Sex Female 4:08 AM SUCKER MACHINE OPERATOR Gender Identity Not on file Sexual Orientation Not on file documented as of this encounter Plan of Treatment Not on file documented as of this encounter Visit Diagnoses Diagnosis Streptococcal sore throat- Primary documented in this encounter Additional Health Concerns Infection Onset Date Last Indicated Resolved Time R/O COVID-19 12/12/2019 12/13/2019 12/15/2019 3:01 AM CDT R/O COVID-19 04/23/2020 04/23/2020 04/24/2020 6:22 AM SUCKER MACHINE OPERATOR documented as of this encounter Care Teams Supervisor Pressing Department Relationship Specialty Start Date End Date Ok Blanco MD [address] [facility] [address] [place] [address] PCP - General Family Practice 11/20/18 documented as of this encounter
--- OUTSIDE RECORDS SUMMARY | 2024-11-08 13:36 | XMS_ITS | Encounter Summary ---
Author Organization [facility] Address [address] [place] [address] Care Team Providers Care Custom Framing Specialist Name Role Phone Ok Blanco MD Primary Care Provider +1 -[phone] Encounter Details Date Type Department Care Team (Latest Contact Info) Description 2004 Outpatient [facility] [address] [place] [address] Zonia Ly, [facility] [address] [place] [address] Vaccine for viral hepatitis (Primary Dx); VACCINE FOR DTP + POLIO; VACCINE FOR H FLU TYPE B Social History Tobacco Use Types Packs/Day Years Used Date Smoking Tobacco: Never Assessed Comments Unknown Sex and Gender Information Value Date Recorded Sex Assigned at Not on file Legal Sex Female 4:08 AM MAIL HANDLER Gender Identity Not on file Sexual Orientation Not on file documented as of this encounter Plan of Treatment Not on file documented as of this encounter Visit Diagnoses Diagnosis Vaccine for viral hepatitis- Primary Need for prophylactic vaccination and inoculation against viral hepatitis Need for prophylactic vaccination with [id number] with poliomyelitis (DTP + polio) vaccine Need for prophylactic vaccination against Hemophilus influenza type B (Hib) documented in this encounter Additional Health Concerns Infection Onset Date Last Indicated Resolved Time R/O COVID-19 12/12/2019 12/13/2019 12/15/2019 3:01 AM CDT R/O COVID-19 04/23/2020 04/23/2020 04/24/2020 6:22 AM MAIL HANDLER documented as of this encounter Care Teams Custom Framing Specialist Relationship Specialty Start Date End Date Ok Blanco MD [address] [address] PCP - General Family Practice 11/20/18 documented as of this encounter
--- OUTSIDE RECORDS SUMMARY | 2024-11-08 13:36 | XMS_ITS | Patient Health Record ---
Author Organization [facility] Address [address] [place] [address] Support Name Relationship Address Phone Juana Limon Guarantor Unknown [phone] Reason For Referral No Information Medications Medication SIG (Take, Route, Frequency, Duration) Notes Start Date End Date Status Depo-Provera Active Plan Of Treatment No Information Insurance Providers Payer Name Payer Address Payer Phone Subscriber Number Group Number Insured Name Patient Relationship to Insured Coverage Start Date Coverage End Date [employer] [address] [address] [place] [phone] [id number] Diane Summers Self - patient is the insured Medical (General) History Medical History History ICD Code asthma
--- OUTSIDE RECORDS SUMMARY | 2024-11-08 13:36 | XMS_ITS | Encounter Summary ---
Author Organization [facility] Address [address] [place] [address] Care Team Providers Care Scarfer Operator Name Role Phone Ok Blanco MD Primary Care Provider +1 -[phone] Encounter Details Date Type Department Care Team (Latest Contact Info) Description 04/03/2005 Outpatient Historical [facility] [address] [place] [address] AMBULANCE, [facility] PNEUMONIA, ORGANISM NOS (Primary Dx) Social History Tobacco Use Types Packs/Day Years Used Date Smoking Tobacco: Never Assessed Comments Unknown Sex and Gender Information Value Date Recorded Sex Assigned at Not on file Legal Sex Female 4:08 AM BLADE WORKER Gender Identity Not on file Sexual Orientation Not on file documented as of this encounter Plan of Treatment Not on file documented as of this encounter Visit Diagnoses Diagnosis Pneumonia, organism unspecified(486)- Primary Pneumonia, organism unspecified documented in this encounter Additional Health Concerns Infection Onset Date Last Indicated Resolved Time R/O COVID-19 12/12/2019 12/13/2019 12/15/2019 3:01 AM CDT R/O COVID-19 04/23/2020 04/23/2020 04/24/2020 6:22 AM BLADE WORKER documented as of this encounter Care Teams Scarfer Operator Relationship Specialty Start Date End Date Ok Blanco MD [address] [facility] [address] [place] [address] PCP - General Family Practice 11/20/18 documented as of this encounter
--- OUTSIDE RECORDS SUMMARY | 2024-11-08 13:36 | XMS_ITS | Encounter Summary ---
Author Organization [facility] Address [address] [place] [address] Care Team Providers Care Supervisor Tank Cleaning Name Role Phone Ok Blanco MD Primary Care Provider +1 -[phone] Encounter Details Date Type Department Care Team (Latest Contact Info) Description 04/10/2005 Outpatient Historical [facility] [address] [place] [address] Zonia Ly, CRNA [address] [place] [address] Respirat syncytial virus (Primary Dx) Social History Tobacco Use Types Packs/Day Years Used Date Smoking Tobacco: Never Assessed Comments Unknown Sex and Gender Information Value Date Recorded Sex Assigned at Not on file Legal Sex Female 4:08 AM ADULT CARE PROVIDER Gender Identity Not on file Sexual Orientation [...] R/O COVID-19 04/23/2020 04/23/2020 04/24/2020 6:22 AM ADULT CARE PROVIDER documented as of this encounter Care Teams Supervisor Tank Cleaning Relationship Specialty Start Date End Date Ok Blanco MD [address] [facility] [address] [place] [address] PCP - General Family Practice 11/20/18 documented as of this encounter
--- OUTSIDE RECORDS SUMMARY | 2024-11-08 13:36 | XMS_ITS | Encounter Summary ---
Author Organization [facility] Address [address] [place] [address] Care Team Providers Care Tobacco Dipper Name Role Phone Ok Blanco MD Primary Care Provider +1 -[phone] Encounter Details Date Type Department Care Team (Latest Contact Info) Description 04/30/2006 Outpatient Historical [facility] [address] [place] [address] Zonia Ly, PUBLICITY PERSON [address] [place] [address] Acute Upper Respiratory Infections of Unspecified Site (Primary Dx) Social History Tobacco Use Types Packs/Day Years Used Date Smoking Tobacco: Never Assessed Comments Unknown Sex and Gender Information Value Date Recorded Sex Assigned at Not on file Legal Sex Female 4:08 AM OPERATORS SCHOOL MANAGER Gender Identity Not on file Sexual [...] R/O COVID-19 04/23/2020 04/23/2020 04/24/2020 6:22 AM OPERATORS SCHOOL MANAGER documented as of this encounter Care Teams Tobacco Dipper Relationship Specialty Start Date End Date Ok Blanco MD [address] [facility] [address] [place] [address] PCP - General Family Practice 11/20/18 documented as of this encounter
--- OUTSIDE RECORDS SUMMARY | 2024-11-08 13:36 | XMS_ITS | Encounter Summary ---
Author Organization [facility] Address [address] [place] [address] Care Team Providers Care Creamery Worker Name Role Phone Ok Blanco MD Primary Care Provider +1 -[phone] Encounter Details Date Type Department Care Team (Latest Contact Info) Description 09/29/2005 Outpatient Historical [facility] [address] [place] [phone] Zonia Ly, CEMENTING BULK MATERIAL OPERATOR [address] [place] [address] Impetigo (Primary Dx) Social History Tobacco Use Types Packs/Day Years Used Date Smoking Tobacco: Never Assessed Comments Unknown Sex and Gender Information Value Date Recorded Sex Assigned at Not on file Legal Sex Female 4:08 AM LANDSCAPING SUPERVISOR Gender Identity Not on file Sexual Orientation Not on file documented as of this encounter Plan of Treatment Not on file documented as of this encounter Visit Diagnoses Diagnosis Impetigo- Primary documented in this encounter Additional Health Concerns Infection Onset Date Last Indicated Resolved Time R/O COVID-19 12/12/2019 12/13/2019 12/15/2019 3:01 AM CDT R/O COVID-19 04/23/2020 04/23/2020 04/24/2020 6:22 AM LANDSCAPING SUPERVISOR documented as of this encounter Care Teams Creamery Worker Relationship Specialty Start Date End Date Ok lBanco MD [address] [place] [address] PCP - General Family Practice 11/20/18 documented as of this encounter
--- OUTSIDE RECORDS SUMMARY | 2024-11-08 13:36 | XMS_ITS | Encounter Summary ---
Author Organization [facility] Address [address] [place] [address] Care Team Providers Care Inspector Purchased Parts Name Role Phone Ok Blanco MD Primary Care Provider +1 -[phone] Encounter Details Date Type Department Care Team (Latest Contact Info) Description 01/18/2005 Outpatient Historical [facility] [address] [place] [phone] Zonia Ly, NATIONAL ACCOUNT DIRECTOR [address] [place] [address] CONJUNCTIVITIS NOS (Primary Dx) Social History Tobacco Use Types Packs/Day Years Used Date Smoking Tobacco: Never Assessed Comments Unknown Sex and Gender Information Value Date Recorded Sex Assigned at Not on file Legal Sex Female 4:08 AM PIPE FITTER WELDING Gender Identity Not on file Sexual Orientation Not on file documented as of this encounter Plan of Treatment Not on file documented as of this encounter Visit Diagnoses Diagnosis Conjunctivitis unspecified- Primary Conjunctivitis, unspecified documented in this encounter Additional Health Concerns Infection Onset Date Last Indicated Resolved Time R/O COVID-19 12/12/2019 12/13/2019 12/15/2019 3:01 AM CDT R/O COVID-19 04/23/2020 04/23/2020 04/24/2020 6:22 AM PIPE FITTER WELDING documented as of this encounter Care Teams Inspector Purchased Parts Relationship Specialty Start Date End Date Ok Blanco MD [address] [facility] [address] [place] [address] PCP - General Family Practice 11/20/18 documented as of this encounter
--- OUTSIDE RECORDS SUMMARY | 2024-11-08 13:36 | XMS_ITS | Encounter Summary ---
Author Organization [facility] Address [address] [place] [address] Care Team Providers Care Wafer Batter Mixer Name Role Phone Ok Blanco MD Primary Care Provider +1 -[phone] Encounter Details Date Type Department Care Team (Latest Contact Info) Description 05/09/2006 Outpatient Historical [facility] [address] [place] [address] Zonia Ly, SEAT COVERER [address] [place] [address] Bronchopneumonia, Organism Unspecified (Primary Dx) Social History Tobacco Use Types Packs/Day Years Used Date Smoking Tobacco: Never Assessed Comments Unknown Sex and Gender Information Value Date Recorded Sex Assigned at Not on file Legal Sex Female 4:08 AM AUTOMOTIVE TECHNICIAN INSTRUCTOR Gender Identity Not on file Sexual Orientation Not on file documented as of this encounter Plan of Treatment Not on file documented as of this encounter Visit Diagnoses Diagnosis Bronchopneumonia, organism unspecified- Primary documented in this encounter Additional Health Concerns Infection Onset Date Last Indicated Resolved Time R/O COVID-19 12/12/2019 12/13/2019 12/15/2019 3:01 AM CDT R/O COVID-19 04/23/2020 04/23/2020 04/24/2020 6:22 AM AUTOMOTIVE TECHNICIAN INSTRUCTOR documented as of this encounter Care Teams Wafer Batter Mixer Relationship Specialty Start Date End Date Ok Blanco MD [address] [facility] [address] [place] [address] PCP - General Family Practice 11/20/18 documented as of this encounter
--- OUTSIDE RECORDS SUMMARY | 2024-11-08 13:36 | XMS_ITS | Encounter Summary ---
Author Organization [facility] Address [address] [place] [address] Care Team Providers Care Sales Representative Publications Name Role Phone Ok Blanco MD Primary Care Provider +1 -[phone] Encounter Details Date Type Department Care Team (Latest Contact Info) Description 06/23/2005 Outpatient Historical [facility] [address] [place] [phone] Zonia Ly, GLASS TUBE BENDER [address] [place] [address] Impetigo (Primary Dx) Social History Tobacco Use Types Packs/Day Years Used Date Smoking Tobacco: Never Assessed Comments Unknown Sex and Gender Information Value Date Recorded Sex Assigned at Not on file Legal Sex Female 4:08 AM PEST CONTROLLER Gender Identity Not on file Sexual Orientation Not on file documented as of this encounter Plan of Treatment Not on file documented as of this encounter Visit Diagnoses Diagnosis Impetigo- Primary documented in this encounter Additional Health Concerns Infection Onset Date Last Indicated Resolved Time R/O COVID-19 12/12/2019 12/13/2019 12/15/2019 3:01 AM CDT R/O COVID-19 04/23/2020 04/23/2020 04/24/2020 6:22 AM PEST CONTROLLER documented as of this encounter Care Teams Sales Representative Publications Relationship Specialty Start Date End Date Ok Blanco MD [address] [place] [address] PCP - General Family Practice 11/20/18 documented as of this encounter
--- OUTSIDE RECORDS SUMMARY | 2024-11-08 13:36 | XMS_ITS | Encounter Summary ---
Author Organization [facility] Address [address] [place] [address] Care Team Providers Care Bag Machine Adjuster Name Role Phone Ok Blanco MD Primary Care Provider +1 -[phone] Encounter Details Date Type Department Care Team (Latest Contact Info) Description 06/28/2005 Outpatient Historical [facility] [address] [place] [phone] Zonia Ly, SECRETARY OFFICE CLERK [address] [place] [address] Impetigo (Primary Dx) Social History Tobacco Use Types Packs/Day Years Used Date Smoking Tobacco: Never Assessed Comments Unknown Sex and Gender Information Value Date Recorded Sex Assigned at Not on file Legal Sex Female 4:08 AM INSECTICIDE SUPERVISOR Gender Identity Not on file Sexual Orientation Not on file documented as of this encounter Plan of Treatment Not on file documented as of this encounter Visit Diagnoses Diagnosis Impetigo- Primary documented in this encounter Additional Health Concerns Infection Onset Date Last Indicated Resolved Time R/O COVID-19 12/12/2019 12/13/2019 12/15/2019 3:01 AM CDT R/O COVID-19 04/23/2020 04/23/2020 04/24/2020 6:22 AM INSECTICIDE SUPERVISOR documented as of this encounter Care Teams Bag Machine Adjuster Relationship Specialty Start Date End Date Ok Blanco MD [address] [place] [address] PCP - General Family Practice 11/20/18 documented as of this encounter
--- OUTSIDE RECORDS SUMMARY | 2024-11-08 13:36 | XMS_ITS | Encounter Summary ---
Author Organization [facility] Address [address] [place] [address] Care Team Providers Care Service Writer Advisor Name Role Phone Ok Blanco MD Primary Care Provider +1 -[phone] Encounter Details Date Type Department Care Team (Latest Contact Info) Description 02/24/2005 Outpatient Historical [facility] [address] [place] [address] Zonia Ly, CHILD CARE CENTER ADMINISTRATOR [address] [place] [address] PNEUMONIA, ORGANISM NOS (Primary Dx) Social History Tobacco Use Types Packs/Day Years Used Date Smoking Tobacco: Never Assessed Comments Unknown Sex and Gender Information Value Date Recorded Sex Assigned at Not on file Legal Sex Female 4:08 AM REFERENCE INVESTIGATOR Gender Identity Not on file Sexual Orientation [...] R/O COVID-19 04/23/2020 04/23/2020 04/24/2020 6:22 AM REFERENCE INVESTIGATOR documented as of this encounter Care Teams Service Writer Advisor Relationship Specialty Start Date End Date Ok Blanco MD [address] [address] PCP - General Family Practice 11/20/18 documented as of this encounter
--- OUTSIDE RECORDS SUMMARY | 2024-11-08 13:36 | XMS_ITS | Encounter Summary ---
Author Organization [facility] Address [address] [place] [address] Care Team Providers Care Transit Man Name Role Phone Ok Blanco MD Primary Care Provider +1 -[phone] Encounter Details Date Type Department Care Team (Latest Contact Info) Description 02/27/2005 Outpatient Historical [facility] [address] [place] [address] Zonia Ly, ENGAGEMENT LIAISON [address] [place] [address] PNEUMONIA, ORGANISM NOS (Primary Dx) Social History Tobacco Use Types Packs/Day Years Used Date Smoking Tobacco: Never Assessed Comments Unknown Sex and Gender Information Value Date Recorded Sex Assigned at Not on file Legal Sex Female 4:08 AM CLUB WAITER/WAITRESS Gender Identity Not on file Sexual Orientation [...] R/O COVID-19 04/23/2020 04/23/2020 04/24/2020 6:22 AM CLUB WAITER/WAITRESS documented as of this encounter Care Teams Transit Man Relationship Specialty Start Date End Date Ok Blanco MD [address] [address] PCP - General Family Practice 11/20/18 documented as of this encounter
--- OUTSIDE RECORDS SUMMARY | 2024-11-08 13:36 | XMS_ITS | Encounter Summary ---
Author Organization [facility] Address [address] [place] [address] Care Team Providers Care Evaluation Manager Name Role Phone Ok Blanco MD Primary Care Provider +1 -[phone] Encounter Details Date Type Department Care Team (Latest Contact Info) Description 03/31/2005 Outpatient Historical [facility] [address] [place] [address] Zonia Ly, MACHINE BANDER AND CELLOPHANER HELPER [address] [place] [address] ACUTE URI NOS (Primary Dx) Social History Tobacco Use Types Packs/Day Years Used Date Smoking Tobacco: Never Assessed Comments Unknown Sex and Gender Information Value Date Recorded Sex Assigned at Not on file Legal Sex Female 4:08 AM VENDOR SPECIALIST Gender Identity Not on file Sexual [...] R/O COVID-19 04/23/2020 04/23/2020 04/24/2020 6:22 AM VENDOR SPECIALIST documented as of this encounter Care Teams Evaluation Manager Relationship Specialty Start Date End Date Ok Blanco MD [address] [facility] [address] [place] [address] PCP - General Family Practice 11/20/18 documented as of this encounter
--- OUTSIDE RECORDS SUMMARY | 2024-11-08 13:36 | XMS_ITS | Encounter Summary ---
Author Organization [facility] Address [address] [place] [address] Care Team Providers Care Lumber Driver Name Role Phone Ok Blanco MD Primary Care Provider +1 -[phone] Encounter Details Date Type Department Care Team (Latest Contact Info) Description 07/31/2005 Outpatient Historical [facility] [address] [place] [address] Zonia Ly, REGISTERED NURSES [address] [place] [address] Routine Child Health Exam (Primary Dx) Social History Tobacco Use Types Packs/Day Years Used Date Smoking Tobacco: Never Assessed Comments Unknown Sex and Gender Information Value Date Recorded Sex Assigned at Not on file Legal Sex Female 4:08 AM NAPHTHALENE OPERATOR Gender Identity Not on file Sexual [...] R/O COVID-19 04/23/2020 04/23/2020 04/24/2020 6:22 AM NAPHTHALENE OPERATOR documented as of this encounter Care Teams Lumber Driver Relationship Specialty Start Date End Date Ok Blanco MD [address] [facility] [address] [place] [address] PCP - General Family Practice 11/20/18 documented as of this encounter
--- OUTSIDE RECORDS SUMMARY | 2024-11-08 13:36 | XMS_ITS | Clinical Summary ---
Author Organization [facility] Address [address] [place] [address] Care Team Providers Care Administration Internship Name Role Phone Ok Blanco MD Primary Care Provider +1 -[phone] Allergies No known active allergies Medications albuterol HFA 90 mcg inhalerIndication s:Exercise-induce d asthma Take 2 Puffs by inhalation see administration instructions. 6.7 Gram 5 10/03/19 20 Active fluticasone propionate (FLONASE) 50 mcg/spray [place], Suspension nasal inhalerIndication s:Non-seasonal allergic rhinitis, unspecified trigger Administer 2 Sprays in each nostril daily. 16 Gram 1 10/03/19 20 Active medroxyPROGESTERo ne (DEPO-PROVERA) 150 mg/mL SuspensionIndicat ions:Encounter for initial prescription of injectable contraceptive Inject 1 mL (150 mg) by intramuscular injection every 90 days. Patient will bring to clinic for administration 1 mL 07/24/19 21 Active Hospital, Clinic, or Other Facility Administered Medication Ordered Dose Route Frequency Start Date End Date Status medroxyPROGESTERone (DEPO-PROVERA) 150 mg/mL injection 150 mgIndications:Encounter for initial prescription of injectable contraceptive 150 mg IM EVERY 90 DAYS 09/10/2019 Active Active Problems Problem Noted Date Diagnosed Date Exercise-induced asthma 10/03/2019 Anxiety with depression 11/20/2018 Environmental tobacco smoke exposure 03/08/2015 Non-seasonal allergic rhinitis 10/26/2010 Resolved Problems Problem Noted Date Diagnosed Date Resolved Date School problem 03/12/2015 11/20/2018 Well child visit 03/12/2015 11/20/2018 Immunizations Immunization Administration Dates Next Due (ADACEL/BOOSTRIX)(10 YR UP) TDAP VACCINE, 0.5ML, IM 10/11/2018 (GARDASIL)(9-45 YRS) HUMAN PAPILLOMAVIRUS VACCINE, TYPES 6, 11, 16, 18, QUADRIVALENT (4VHPV), 3 DOSE, IM 04/23/2017,09/05/2016 (INFANRIX)(6 WKS-6 YRS) DIPT HERIA, TETANUS TOXOIDS, AND ACCELLULAR PERTUSSIS VACCINE (DTAP), 0.5 ML IM 07/13/2009 (IPOL)(6 WKS AND UP) POLIOVI JUSTEN VACCINE, INACTIVATED (IPV), 3 DOSE, SUBCUT OR IM 07/13/2009 (M-M-R II/PRIORIX)(12 MO UP) MEASLES, MUMPS AND RUBELLA VIRUS VACCINE, 0.5 ML IM/SUBCUT 07/13/2009,11/24/2005 (MENACTRA)(9 MO-55 YR) MENIN GOCOCCAL POLYSACCHARIDE A, C, Y AND W-135 DIPTHERIA TOXOID CONJUGATE VACCINE, (PF), 0.5ML, IM 10/11/2018 (VARIVAX)(12 MOS UP)VARICELL A VIRUS VACCINE (PF) 0.5 ML, SUB CUT 07/13/2009,11/24/2005 Dt Dtp Dtap Vaccine 10/23/2005, 6,03/13/2005,12/21 HIB, Unspecified Formulation 10/23/2005, 07/31/2005,05/22/2005,12/21 Hepatitis B Vaccine 07/31/2005,03/13/2005,2004 IPV/OPV 04/21/2005,03/13/2005,2004 Influenza A (H1N1) Vaccine IM VFC 03/09/2009 Influenza A (H1N1) Vaccine Nasal VFC 01/22/2009 Influenza Vaccine Quad Split 3+ Yrs IM VFC 02/04/2015 Influenza Vaccine Split 3+ Yrs IM VFC 01/31/2013 ,04/13/2011,01/22/2009 Pneumococcal 7-valent conjug ate vaccine IM 11/24/2005,07/31/2005 Social History Tobacco Use Types Packs/Day Years Used Date Smoking Tobacco: Passive Smo ke Exposure - Never Smoker Smokeless Tobacco: Never Alcohol Use Standard Drinks/Week Comments No 0 (1 standard drink = 0.6 oz pur e alcohol) Comments No Sex and Gender Information Value Date Recorded Sex Assigned at Not on file Legal Sex Female 4:08 AM MACHINE STRAW HAT PRESSER Gender Identity Not on file Sexual Orientation Not on file Occupation Industry Job Start Date Job End Date Not on file Not on file Not on file Not on file Last Filed Vital Signs Vital Sign Reading Time Taken Comments Blood Pressure 110/70 01/29/2020 1:43 PM MACHINE STRAW HAT PRESSER Pulse 98 01/29/2020 1:43 PM MACHINE STRAW HAT PRESSER Temperature 37.1 C (98.7 F) 01/29/2020 1:43 PM MACHINE STRAW HAT PRESSER Respiratory Rate 16 01/29/2020 1:43 PM MACHINE STRAW HAT PRESSER Oxygen Saturation 98% 01/29/2020 1:43 PM MACHINE STRAW HAT PRESSER Inhaled Oxygen Concentration - - Weight 51.3 kg (113 lb) 01/29/2020 1:43 PM MACHINE STRAW HAT PRESSER Height 167.6 cm (5' 6 ) 01/29/2020 1:43 PM MACHINE STRAW HAT PRESSER Body Mass Index 18.24 01/29/2020 1:43 PM MACHINE STRAW HAT PRESSER Plan of Treatment Health Maintenance Due Date Last Done Comments CHLAMYDIA SCREENING (ANNUAL) 11-24 YEARS 09/09/2020 09/10/2019 Preventative Visit-Managed Medicaid 10/19/2023 10/03/2019, 09/05/2016, 03/08/2015 INFLUENZA VACCINE (#1) 2024 5, 01/31/2013, 04/13/2011, Additional history exists DTAP/TDAP/TD VACCINES (7 - T d or Tdap) 10/11/2028 10/11/2018, 07/13/2009, 10/23/2005, Additional history exists HEPATITIS B VACCINES Completed 07/31/2005, 03/13/2005, 2004 HPV VACCINES Completed 04/23/2017, 09/05/2016 Procedures Procedure Name Priority Date/Time Associated Diagnosis Comments GC/CHLAMYDIA, URINE Routine 09/10/2019 5 :55 PM CDT Unprotected sex from Last 3 Months or Most Recently Relevant to Health Maintenance Results * GC/CHLAMYDIA, URINE (09/10/2019 5:55 PM CDT) CHLAMYDIA DNA AMPLIFICATION NOT DETECTED Not Detected 09/12/2019 8:00 AM CDT [facility] GC DNA AMPLIFICATION NOT DETECTED Not Detected 09/12/2019 8:00 AM CDT [facility] Urine URINE SPECIMEN / Unknown Collection / Unknown 09/10/2019 5:55 PM CDT 09/10/2019 6:01 PM CDT Narrative [facility] - 09/12/2019 8:00 AM CDT Results should not be used for the evaluation of suspected sexual abuse or for other medico-legal indications. The only legally accepted results are from culture. Results cannot be used to assess therapeutic success or failure since nucleic acids may persist following antimicrobial therapy. Ok Blanco MD URINE ORDERABLES COM Yaima griggs Result [facility] CLIA# [id number] [address] [place] [address] from Last 3 Months or Most Recently Relevant to Health Maintenance Insurance [facility] [employer] [place] Care Teams Administration Internship Relationship Specialty Start Date End Date Ok Blanco MD [address] [address] PCP - General Family Practice 11/20/18
--- OUTSIDE RECORDS SUMMARY | 2024-11-08 13:36 | XMS_ITS | Encounter Summary ---
Author Organization [facility] Address [address] [place] [address] Care Team Providers Care Retail Branch Manager Name Role Phone Ok Blanco MD Primary Care Provider +1 -[phone] Encounter Details Date Type Department Care Team (Latest Contact Info) Description 03/06/2005 Outpatient Historical [facility] [address] [place] [address] Zonia Ly, CRIMINAL JUSTICE PROFESSOR [address] [place] [address] DIARRHEA NOS (Primary Dx); TEETHING SYNDROME Social History Tobacco Use Types Packs/Day Years Used Date Smoking Tobacco: Never Assessed Comments Unknown Sex and Gender Information Value Date Recorded Sex Assigned at Not on file Legal Sex Female 4:08 AM STOCK DRIER TENDER Gender Identity Not on file Sexual Orientation Not on file documented as of this encounter Plan of Treatment Not on file documented as of this encounter Visit Diagnoses Diagnosis Diarrhea- Primary Teething syndrome documented in this encounter Additional Health Concerns Infection Onset Date Last Indicated Resolved Time R/O COVID-19 12/12/2019 12/13/2019 12/15/2019 3:01 AM CDT R/O COVID-19 04/23/2020 04/23/2020 04/24/2020 6:22 AM STOCK DRIER TENDER documented as of this encounter Care Teams Retail Branch Manager Relationship Specialty Start Date End Date Ok Blanco MD [address] [facility] [place] [address] [place] [address] PCP - General Family Practice 11/20/18 documented as of this encounter
--- OUTSIDE RECORDS SUMMARY | 2024-11-08 13:36 | XMS_ITS | Encounter Summary ---
Author Organization [facility] Address [address] [place] [address] Care Team Providers Care Secret Service Agent Name Role Phone Ok Blanco MD Primary Care Provider +1 -[phone] Encounter Details Date Type Department Care Team (Latest Contact Info) Description 04/21/[address] Outpatient [address] [facility] [address] [place] [address] Zonia Ly, TEACHER [employer]OL [address] [place] [address] Routine child health exam (Primary Dx); VACCINE FOR DTP + POLIO Social History Tobacco Use Types Packs/Day Years Used Date Smoking Tobacco: Never Assessed Comments Unknown Sex and Gender Information Value Date Recorded Sex Assigned at Not on file Legal Sex Female 4:08 AM RIVETING MACHINE OPERATOR AUTOMATIC Gender Identity Not on file Sexual Orientation Not on file documented as of this encounter Plan of Treatment Not on file documented as of this encounter Visit Diagnoses Diagnosis Routine child health exam- Primary Routine or child health check Need for prophylactic vaccination with [id number] with poliomyelitis (DTP + polio) vaccine documented in this encounter Additional Health Concerns Infection Onset Date Last Indicated Resolved Time R/O COVID-19 12/12/2019 12/13/2019 12/15/2019 3:01 AM CDT R/O COVID-19 04/23/2020 04/23/2020 04/24/2020 6:22 AM RIVETING MACHINE OPERATOR AUTOMATIC documented as of this encounter Care Teams Secret Service Agent Relationship Specialty Start Date End Date Ok Blanco MD [address] [address] PCP - General Family Practice 11/20/18 documented as of this encounter
--- OUTSIDE RECORDS SUMMARY | 2024-11-08 13:37 | XMS_ITS | Encounter Summary ---
Author Organization [facility] Address [address] [place] [address] Care Team Providers Care Motor Vehicle Field Representative Name Role Phone Ok Blanco MD Primary Care Provider +1 -[phone] Encounter Details Date Type Department Care Team (Latest Contact Info) Description 11/24/2005 Outpatient Historical [facility] [address] [place] [address] Zonia Ly, FIELD REPORTER [address] [place] [address] Routine Child Health Exam (Primary Dx) Social History Tobacco Use Types Packs/Day Years Used Date Smoking Tobacco: Never Assessed Comments Unknown Sex and Gender Information Value Date Recorded Sex Assigned at Not on file Legal Sex Female 4:08 AM CATEGORY ANALYST Gender Identity Not on file Sexual [...] R/O COVID-19 04/23/2020 04/23/2020 04/24/2020 6:22 AM CATEGORY ANALYST documented as of this encounter Care Teams Motor Vehicle Field Representative Relationship Specialty Start Date End Date Ok Blanco MD [address] [facility] [address] [place] [address] PCP - General Family Practice 11/20/18 documented as of this encounter
--- OUTSIDE RECORDS SUMMARY | 2024-11-08 13:37 | XMS_ITS | Encounter Summary ---
Author Organization [facility] Address [address] [place] [address] Care Team Providers Care Trimmer Loader Name Role Phone Ok Blanco MD Primary Care Provider +1 -[phone] Encounter Details Date Type Department Care Team (Latest Contact Info) Description 12/06/2005 Outpatient Historical [facility] [address] [place] [phone] Zonia Ly, DIRECTOR OF RADIO SERVICES [address] [place] [address] Acute Pharyngitis (Primary Dx) Social History Tobacco Use Types Packs/Day Years Used Date Smoking Tobacco: Never Assessed Comments Unknown Sex and Gender Information Value Date Recorded Sex Assigned at Not on file Legal Sex Female 4:08 AM SENIOR BRAND MANAGER Gender Identity Not on file Sexual Orientation Not on file documented as of this encounter Plan of Treatment Not on file documented as of this encounter Visit Diagnoses Diagnosis Acute pharyngitis- Primary documented in this encounter Additional Health Concerns Infection Onset Date Last Indicated Resolved Time R/O COVID-19 12/12/2019 12/13/2019 12/15/2019 3:01 AM CDT R/O COVID-19 04/23/2020 04/23/2020 04/24/2020 6:22 AM SENIOR BRAND MANAGER documented as of this encounter Care Teams Trimmer Loader Relationship Specialty Start Date End Date Ok Blanco MD [address] [facility] [address] [place] [address] PCP - General Family Practice 11/20/18 documented as of this encounter
--- OUTSIDE RECORDS SUMMARY | 2024-11-08 13:37 | XMS_ITS | Encounter Summary ---
Author Organization [facility] Address [address] [place] [address] Care Team Providers Care Envelope Sealer Name Role Phone Ok Blanco MD Primary Care Provider +1 -[phone] Encounter Details Date Type Department Care Team (Latest Contact Info) Description 04/09/2006 Outpatient Historical [facility] [address] [place] [address] Zonia Ly, MORTGAGE ADVISOR [address] [place] [address] Acute Upper Respiratory Infections of Unspecified Site (Primary Dx) Social History Tobacco Use Types Packs/Day Years Used Date Smoking Tobacco: Never Assessed Comments Unknown Sex and Gender Information Value Date Recorded Sex Assigned at Not on file Legal Sex Female 4:08 AM SERVICE DESK MANAGER Gender Identity Not on file Sexual [...] R/O COVID-19 04/23/2020 04/23/2020 04/24/2020 6:22 AM SERVICE DESK MANAGER documented as of this encounter Care Teams Envelope Sealer Relationship Specialty Start Date End Date Ok Blanco MD [address] [facility] [address] [place] [address] PCP - General Family Practice 11/20/18 documented as of this encounter
--- OUTSIDE RECORDS SUMMARY | 2024-11-08 13:37 | XMS_ITS | Encounter Summary ---
Author Organization [facility] Address [address] [place] [address] Care Team Providers Care Project Engineering Director Name Role Phone Ok Blanco MD Primary Care Provider +1 -[phone] Encounter Details Date Type Department Care Team (Latest Contact Info) Description 04/02/2006 Outpatient Historical [facility] [address] [place] [address] Zonia Ly, RAIL LOADER [address] [place] [address] Acute Upper Respiratory Infections of Unspecified Site (Primary Dx) Social History Tobacco Use Types Packs/Day Years Used Date Smoking Tobacco: Never Assessed Comments Unknown Sex and Gender Information Value Date Recorded Sex Assigned at Not on file Legal Sex Female 4:08 AM CORE SUCKER Gender Identity Not on file Sexual Orientation [...] COVID-19 04/23/2020 04/23/2020 04/24/2020 6:22 AM CORE SUCKER documented as of this encounter Care Teams Project Engineering Director Relationship Specialty Start Date End Date Ok Blanco MD [address] [facility] [address] [place] [address] PCP - General Family Practice 11/20/18 documented as of this encounter
--- OUTSIDE RECORDS SUMMARY | 2024-11-08 13:37 | XMS_ITS | Encounter Summary ---
Author Organization [facility] Address [address] [place] [address] Care Team Providers Care Oncology Social Worker Name Role Phone Ok Blanco MD Primary Care Provider +1 -[phone] Encounter Details Date Type Department Care Team (Latest Contact Info) Description 05/30/2006 Outpatient Historical [facility] Family Medicine- [address] [place] [address] Jaron Freedman MD [address] [place] [address] Carbuncle of Buttock (Primary Dx); Acute Upper Respiratory Infections of Unspecified Site Social History Tobacco Use Types Packs/Day Years Used Date Smoking Tobacco: Never Assessed Comments Unknown Sex and Gender Information Value Date Recorded Sex Assigned at Not on file Legal Sex Female 4:08 AM MEDICAL TECH Gender Identity Not on file Sexual Orientation Not on file documented as of this encounter Plan of Treatment Not on file documented as of this encounter Visit Diagnoses Diagnosis Carbuncle of buttock- Primary Carbuncle and furuncle of buttock Acute upper respiratory infections of unspecified site documented in this encounter Additional Health Concerns Infection Onset Date Last Indicated Resolved Time R/O COVID-19 12/12/2019 12/13/2019 12/15/2019 3:01 AM CDT R/O COVID-19 04/23/2020 04/23/2020 04/24/2020 6:22 AM MEDICAL TECH documented as of this encounter Care Teams Oncology Social Worker Relationship Specialty Start Date End Date Ok Blanco MD [address] [address] PCP - General Family Practice 11/20/18 documented as of this encounter
--- OUTSIDE RECORDS SUMMARY | 2024-11-08 13:37 | XMS_ITS | Encounter Summary ---
Author Organization [facility] Address [address] [place] [address] Care Team Providers Care Estimator Project Manager Name Role Phone Ok Blanco MD Primary Care Provider +1 -[phone] Encounter Details Date Type Department Care Team (Latest Contact Info) Description 02/19/2006 Outpatient Historical [facility] Family Medicine- [place] [place] [phone] Jaron Freedman MD [address] [place] [address] Acute Upper Respiratory Infections of Unspecified Site (Primary Dx) Social History Tobacco Use Types Packs/Day Years Used Date Smoking Tobacco: Never Assessed Comments Unknown Sex and Gender Information Value Date Recorded Sex Assigned at Not on file Legal Sex Female 4:08 AM ICT HELP DESK OFFICER Gender Identity Not on file Sexual Orientation [...] R/O COVID-19 04/23/2020 04/23/2020 04/24/2020 6:22 AM ICT HELP DESK OFFICER documented as of this encounter Care Teams Estimator Project Manager Relationship Specialty Start Date End Date Ok Blanco MD [address] [address] PCP - General Family Practice 11/20/18 documented as of this encounter
--- OUTSIDE RECORDS SUMMARY | 2024-11-08 13:37 | XMS_ITS | Encounter Summary ---
Author Organization [facility] Address [address] [place] [address] Care Team Providers Care Engineer Booster And Exhauster Name Role Phone Ok Blanco MD Primary Care Provider +1 -[phone] Encounter Details Date Type Department Care Team (Latest Contact Info) Description 05/23/2006 Outpatient Historical [facility] [address] [place] [address] Zonia Ly, CORPORATE SAFETY DIRECTOR [address] [place] [address] Acute Upper Respiratory Infections of Unspecified Site (Primary Dx) Social History Tobacco Use Types Packs/Day Years Used Date Smoking Tobacco: Never Assessed Comments Unknown Sex and Gender Information Value Date Recorded Sex Assigned at Not on file Legal Sex Female 4:08 AM LIGHT ARMORED VEHICLE OFFICER Gender Identity Not on file Sexual [...] R/O COVID-19 04/23/2020 04/23/2020 04/24/2020 6:22 AM LIGHT ARMORED VEHICLE OFFICER documented as of this encounter Care Teams Engineer Booster And Exhauster Relationship Specialty Start Date End Date Ok Blanco MD [address] [facility] [address] [place] [address] PCP - General Family Practice 11/20/18 documented as of this encounter
--- OUTSIDE RECORDS SUMMARY | 2024-11-08 13:37 | XMS_ITS | Clinical Summary ---
Author Organization [facility] Address [address] [place] [address] Care Team Providers Care Giant Tire Repairer Name Role Phone Ok Blanco MD Primary Care Provider +1 -[phone] Allergies No known active allergies Medications No known medications Active Problems Problem Noted Date Diagnosed Date Asymptomatic bacteriuria 02/19/2023 Encounter for surveillance o f transdermal patch hormonal contraceptive device 01/25/2021 Exercise-induced asthma 10/03/2019 Anxiety with depression 11/20/2018 Environmental tobacco smoke exposure 03/08/2015 Non-seasonal allergic rhinitis 10/26/2010 Resolved Problems Problem Noted Date Diagnosed Date Resolved Date Well child visit 03/12/2015 11/20/2018 School problem 03/12/2015 11/20/2018 Immunizations Immunization Administration Dates Next [...] TOXOID CONJUGATE VACCINE, (PF), 0.5ML, IM 10/11/2018 (MENQUADFI)(2 YRS UP) MENING OCOCCAL POLYSACCHARIDE VACCINE A,C,Y,W-135, TT CONJUGATE (PF) 10 MCG/0.5 ML IM SOLUTION 05/09/2022 (VARIVAX)(12 MOS UP)VARICELL A VIRUS VACCINE (PF) [...] Pneumococcal 7-valent conjug ate vaccine IM 11/24/2005,07/31/2005 Family History Medical History Relation Name Comments Depression Mother Juana Rhodes Thyroid Disease Mother Juana Rhodes Graves d isease Relation Name Status Comments Mother Juana Rhodes Social History Tobacco Use Types Packs/Day Years Used Date Smoking Tobacco: Never Passive Smoke Exposure: Yes Smokeless Tobacco: Never Tobacco Cessation:Counseling Given: No Alcohol Use Standard Drinks/Week Comments No 0 (1 standard drink = 0.6 oz pur e alcohol) Comments Unknown Sex and Gender Information Value Date Recorded Sex Assigned at Not on file Legal Sex Female 3:27 PM FUEL VERIFICATION TECHNICIAN Gender Identity Not on file Sexual Orientation Not on file Last Filed Vital Signs Vital Sign Reading Time Taken Comments Blood Pressure 126/90 02/19/2023 2:30 PM FUEL VERIFICATION TECHNICIAN Pulse 91 02/19/2023 2:30 PM FUEL VERIFICATION TECHNICIAN Temperature 36.6 C (97.8 F) 02/19/2023 2:30 PM FUEL VERIFICATION TECHNICIAN Respiratory Rate 20 02/19/2023 2:30 PM FUEL VERIFICATION TECHNICIAN Oxygen Saturation 98% 02/19/2023 2:30 PM FUEL VERIFICATION TECHNICIAN Inhaled Oxygen Concentration - - Weight 51.7 kg (114 lb) 02/19/2023 1:45 PM FUEL VERIFICATION TECHNICIAN Height 165.1 cm (5' 5 ) 02/19/2023 1:45 PM FUEL VERIFICATION TECHNICIAN Body Mass Index 18.97 02/19/2023 1:45 PM FUEL VERIFICATION TECHNICIAN Plan of Treatment Health Maintenance Due Date [...] URINE Routine 09/10/2019 5 :55 PM CDT from Last 3 Months or Most Recently Relevant to Health Maintenance Results * GC/CHLAMYDIA, URINE (09/10/2019 5:55 PM CDT) CHLAMYDIA DNA AMPLIFICATION NOT DETECTED Not Detected 09/12/2019 8:00 AM CDT [facility] GC DNA AMPLIFICATION NOT DETECTED Not Detected 09/12/2019 8:00 AM CDT [facility] Urine URINE SPECIMEN / Unknown Collection / Unknown 09/10/2019 5:55 PM CDT 09/11/2019 8:45 PM CDT [facility] - 09/12/2019 8:00 AM CDT Results should not be used for the evaluation of suspected sexual abuse or for other medico-legal indications. The only legally accepted results are from culture. Results cannot be used to assess therapeutic success or failure since nucleic acids may persist following antimicrobial therapy. Ok Blanco MD URINE ORDERABLES COM Yaima griggs Result Performing Organization Address City/State/[facility] Co de Phone Number [facility] CLIA# [id number] [address] [place] [address] [facility] CLIA# [id number] [address] [place] [address] from Last 3 Months or Most Recently Relevant to Health Maintenance Insurance MEDICAID MEDICAID Care Teams Giant T[employer] Repairer Relationship Specialty Start Date End Date Ok Blanco MD [address] [address] PCP - General Family Practice 11/20/18
--- OUTSIDE RECORDS SUMMARY | 2024-11-08 13:37 | XMS_ITS | Encounter Summary ---
Author Organization [facility] Address [address] [place] [address] Care Team Providers Care Photographic Colorist Name Role Phone Ok Blanco MD Primary Care Provider +1 -[phone] Encounter Details Date Type Department Care Team (Late st Contact Info) Description 04/04/2007 Outpatient Historical [facility] [address] [place] [address] Zonia Ly, WINE SALES REPRESENTATIVE [address] [place] [address] Social History Tobacco Use Types Packs/Day Years Used Date Smoking Tobacco: Never Assessed Comments Unknown Sex and Gender Information Value Date Recorded Sex Assigned at Not on file Legal Sex Female 4:08 AM CONSTRUCTION MANAGER Gender Identity Not on file Sexual Orientation Not on file documented as of this encounter Plan of Treatment Not on file documented as of this encounter Visit Diagnoses Not on filedocumented in this encounter Additional Health Concerns Infection Onset Date Last Indicated Resolved Time R/O COVID-19 12/12/2019 12/13/2019 12/15/2019 3:01 AM CDT R/O COVID-19 04/23/2020 04/23/2020 04/24/2020 6:22 AM CONSTRUCTION MANAGER documented as of this encounter Care Teams Photographic Colorist Relationship Specialty Start Date End Date Ok Blanco MD [address] [facility] [address] [place] [address] PCP - General Family Practice 11/20/18 documented as of this encounter
--- OUTSIDE RECORDS SUMMARY | 2024-11-08 13:37 | XMS_ITS | Encounter Summary ---
Author Organization [facility] Address [address] [place] [address] Care Team Providers Care Scrap Handler Name Role Phone Ok Blanco MD Primary Care Provider +1 -[phone] Encounter Details Date Type Department Care Team (Late st Contact Info) Description 04/11/2007 Outpatient Historical [facility] [address] [place] [address] Zonia Ly, CRACKLING PRESS OPERATOR [address] [place] [address] Social History Tobacco Use Types Packs/Day Years Used Date Smoking Tobacco: Never Assessed Comments Unknown Sex and Gender Information Value Date Recorded Sex Assigned at Not on file Legal Sex Female 4:08 AM PETROLEUM PRODUCTS DISTRICT SUPERVISOR Gender Identity Not on file Sexual Orientation Not on file documented as of this encounter Plan of Treatment Not on file documented as of this encounter Visit Diagnoses Not on filedocumented in this encounter Additional Health Concerns Infection Onset Date Last Indicated Resolved Time R/O COVID-19 12/12/2019 12/13/2019 12/15/2019 3:01 AM CDT R/O COVID-19 04/23/2020 04/23/2020 04/24/2020 6:22 AM PETROLEUM PRODUCTS DISTRICT SUPERVISOR documented as of this encounter Care Teams Scrap Handler Relationship Specialty Start Date End Date Ok Blanco MD [address] [facility] [address] [place] [address] PCP - General Family Practice 11/20/18 documented as of this encounter
--- OUTSIDE RECORDS SUMMARY | 2024-11-08 13:37 | XMS_ITS | Encounter Summary ---
Author Organization [facility] Address [address] [place] [address] Care Team Providers Care Justice Court Deputy Clerk Name Role Phone Ok Blanco MD Primary Care Provider +1 -[phone] Encounter Details Date Type Department Care Team (Latest Contact Info) Description 08/22/2006 Outpatient Historical [facility] [address] [place] [address] Zonia Ly, DRIVING TEACHER [address] [place] [address] Acute Upper Respiratory Infections of Unspecified Site (Primary Dx) Social History Tobacco Use Types Packs/Day Years Used Date Smoking Tobacco: Never Assessed Comments Unknown Sex and Gender Information Value Date Recorded Sex Assigned at Not on file Legal Sex Female 4:08 AM FRONT DESK WORKER Gender Identity Not on file Sexual [...] R/O COVID-19 04/23/2020 04/23/2020 04/24/2020 6:22 AM FRONT DESK WORKER documented as of this encounter Care Teams Justice Court Deputy Clerk Relationship Specialty Start Date End Date Ok Blanco MD [address] [facility] [address] [place] [address] PCP - General Family Practice 11/20/18 documented as of this encounter
--- OUTSIDE RECORDS SUMMARY | 2024-11-08 13:37 | XMS_ITS | Encounter Summary ---
Author Organization [facility] Address [address] [place] [address] Care Team Providers Care Bradder Name Role Phone Ok Blanco MD Primary Care Provider +1 -[phone] Encounter Details Date Type Department Care Team (Latest Contact Info) Description 05/18/2006 Outpatient Historical [facility] [address] [place] [address] Zonia Ly, WEDDING PLANNER [address] [place] [address] Acute Upper Respiratory Infections of Unspecified Site (Primary Dx) Social History Tobacco Use Types Packs/Day Years Used Date Smoking Tobacco: Never Assessed Comments Unknown Sex and Gender Information Value Date Recorded Sex Assigned at Not on file Legal Sex Female 4:08 AM FREE LANCE MODEL Gender Identity Not on file Sexual Orientation [...] R/O COVID-19 04/23/2020 04/23/2020 04/24/2020 6:22 AM FREE LANCE MODEL documented as of this encounter Care Teams Bradder Relationship Specialty Start Date End Date Ok Blanco MD [address] [facility] [address] [place] [address] PCP - General Family Practice 11/20/18 documented as of this encounter
--- OUTSIDE RECORDS SUMMARY | 2024-11-08 13:37 | XMS_ITS | Encounter Summary ---
Author Organization [facility] Address [address] [place] [address] Care Team Providers Care Sports Director Name Role Phone Ok Blanco MD Primary Care Provider +1 -[phone] Encounter Details Date Type Department Care Team (Latest Contact Info) Description 05/11/2006 Outpatient Historical [facility] [address] [place] [address] Zonia Ly, PLANT HEALTH CARE TECHNICIAN [address] [place] [address] Acute Upper Respiratory Infections of Unspecified Site (Primary Dx) Social History Tobacco Use Types Packs/Day Years Used Date Smoking Tobacco: Never Assessed Comments Unknown Sex and Gender Information Value Date Recorded Sex Assigned at Not on file Legal Sex Female 4:08 AM OCTAVE BOARD ASSEMBLER Gender Identity Not on file Sexual Orientation [...] R/O COVID-19 04/23/2020 04/23/2020 04/24/2020 6:22 AM OCTAVE BOARD ASSEMBLER documented as of this encounter Care Teams Sports Director Relationship Specialty Start Date End Date Ok Blanco MD [address] [facility] [address] [place] [address] PCP - General Family Practice 11/20/18 documented as of this encounter
--- OUTSIDE RECORDS SUMMARY | 2024-11-08 13:37 | XMS_ITS | Encounter Summary ---
Author Organization [facility] Address [address] [place] [address] Care Team Providers Care Cutting Department Supervisor Name Role Phone Ok Blanco MD Primary Care Provider +1 -[phone] Encounter Details Date Type Department Care Team (Latest Contact Info) Description 08/17/2006 Outpatient Historical [facility] [address] [place] [address] Zonia Ly, EMPLOYMENT MANAGER [address] [place] [address] Acute Upper Respiratory Infections of Unspecified Site (Primary Dx) Social History Tobacco Use Types Packs/Day Years Used Date Smoking Tobacco: Never Assessed Comments Unknown Sex and Gender Information Value Date Recorded Sex Assigned at Not on file Legal Sex Female 4:08 AM SAND AND GRAVEL PLANT OPERATOR Gender Identity Not on file Sexual [...] R/O COVID-19 04/23/2020 04/23/2020 04/24/2020 6:22 AM SAND AND GRAVEL PLANT OPERATOR documented as of this encounter Care Teams Cutting Department Supervisor Relationship Specialty Start Date End Date Ok Blanco MD [address] [facility] [address] [place] [address] PCP - General Family Practice 11/20/18 documented as of this encounter
--- OUTSIDE RECORDS SUMMARY | 2024-11-08 13:37 | XMS_ITS | Encounter Summary ---
Author Organization [facility] Address [address] [place] [address] Care Team Providers Care Manager Editorial Name Role Phone Ok Blanco MD Primary Care Provider +1 -[phone] Encounter Details Date Type Department Care Team (Latest Contact Info) Description 10/23/2005 Outpatient Historical [facility] [address] [place] [address] Zonia Ly, SUPERVISOR CUSTOMER COMPLAINT SERVICE [address] [place] [address] Routine Child Health Exam (Primary Dx) Social History Tobacco Use Types Packs/Day Years Used Date Smoking Tobacco: Never Assessed Comments Unknown Sex and Gender Information Value Date Recorded Sex Assigned at Not on file Legal Sex Female 4:08 AM SENIOR APPLICATION PROGRAMMER Gender Identity Not on file Sexual Orientation [...] COVID-19 04/23/2020 04/23/2020 04/24/2020 6:22 AM SENIOR APPLICATION PROGRAMMER documented as of this encounter Care Teams Manager Editorial Relationship Specialty Start Date End Date Ok Blanco MD [address] [facility] [address] [place] [address] PCP - General Family Practice 11/20/18 documented as of this encounter
--- NOTE | 2024-11-08 14:16 | W.ED.HA ---
HPI - Headache General: Chief Complaint: Headache Stated Complaint: migraine / neck pain / nausea Time Seen by Provider: 11/08/24 13:45 History of Present Illness: 19-year-old female present to the emergency room with complaints of a headache. 2 days ago she had an epidural she did have a dural perforation during the placement of the epidural. She is not having headache when she sits or stands, it nearly completely resolved when she lays down she was discharged from OB just a couple of hours ago. No other problems since then delivery was at term without complication Associated symptoms: Deny chest pain, fever(s) or rash Related Data Home Medications ?Medication ?Instructions ?Recorded ?Confirmed acetaminophen 500 mg tablet 500 mg PO Q6H PRN Fever Or Pain 11/08/24 11/08/24 (Tylenol Extra Strength) ibuprofen 200 mg tablet (Advil) 400 mg PO Q6H PRN Fever Or Pain 11/08/24 11/08/24 vits no.133-ferrous 1 tab PO DAILY 11/08/24 11/08/24 fumarate 28 mg-folic acid 800 mcg tablet () Allergies Allergy/AdvReac Type Severity Reaction Status Date / Time No Known Allergies Allergy Verified 11/11/24 11:04 Review of Systems Const: Denies: fever(s) or chills Card: Denies: chest pain Resp: Denies: dyspnea GI: Denies: abdominal pain : Denies: dysuria, urinary frequency or urinary urgency Musc: Denies: neck pain or back pain Skin/Breast: Denies: rash Neuro: Reports: headache(s) [facility] ED PFSH: Medical History (Updated 11/16/24 @ 00:00 by AMIRAH Carrasco) No pertinent past medical history neghx:htn,dm,thyroid,dvt/pe PCP: none Surgical History No pertinent past surgical history Family History Family/Other Breast cancer paternal aunt Denies family history of Colon cancer Ovarian cancer Diabetes Heart disease Hypertension Uterine cancer Thyroid disease Stroke Hyperchloremia Social History Smoking and tobacco/nicotine status: current every day tobacco/nicotine user Physical Exam Const: COMMON NORMALS: no acute distress GENERAL APPEARANCE: cooperative and comfortable ORIENTATION/CONSCIOUSNESS: Yes awake, Yes oriented to person, Yes oriented to place and Yes oriented to time HENMT: COMMON NORMALS: normocephalic, atraumatic and hearing grossly normal bilaterally HEAD & SCALP: normocephalic and atraumatic Resp: COMMON NORMALS: normal respiratory effort, No retractions, No use of accessory muscles and clear to auscultation bilaterally AUSCULTATION: clear to auscultation bilaterally Cardio: COMMON NORMALS: regular rate, regular rhythm and No murmurs present (Cardio) RATE: regular rate RHYTHM: regular rhythm GI: COMMON NORMALS: Soft to palpation and No hepatosplenomegaly present AUSCULTATION: Yes normoactive bowel sounds PALPATION: Yes Soft to palpation, No Tenderness to palpation present (GI), No Guarding due to palpation present (GI) and Yes No hepatosplenomegaly present Extremity: COMMON NORMALS: normal to inspection, capillary refill normal, no clubbing, cyanosis or edema, no calf tenderness and no pedal edema Neuro: SENSORIUM/ORIENTATION: Yes oriented to person, Yes oriented to place and Yes oriented to time Skin: COMMON NORMALS: no rashes or lesions noted GENERAL SKIN EXAM: no rashes or lesions noted Course Vital Signs: Vital signs: Vital Signs Temperature 98.1 F 11/08/24 13:32 Pulse Rate 66 11/08/24 17:34 Respiratory Rate 16 11/08/24 15:01 Blood Pressure 124/78 11/08/24 17:34 Pulse Oximetry 99 11/08/24 17:34 Oxygen Delivery Me thod Room Air 11/08/24 17:19 MDM - Headache Medical Decision Making Dr. Hernandez from anesthesia was kind enough to come and see the patient in the emergency room blood patch was done. She was monitored for period of time states her headache is markedly improved. Will discharge patient home follow-up as per DISTANCE EDUCATION FACULTY LIAISON and anesthesia. Return for further problems. Medical Records I reviewed the patient's medical records. Lab Data I reviewed the patient's lab results. 11/08/24 14:30 Laboratory Results WBC 12.40 10^3/uL (4.5-13.0) 11/08/24 14:30 RBC 3.85 10^6/uL (3.85-5.65) 11/08/24 14:30 Hgb 9.00 g/dL (12.4-14.8) L 11/08/24 14:30 Hct 28.9 % (36-47) L 11/08/24 14:30 MCV 75.1 fl (85-98) L 11/08/24 14:30 MCH 23.4 pg (27-33) L 11/08/24 14:30 MCHC 31.1 g/dL (30-55) 11/08/24 14:30 RDW 13.8 % (12.1-15.1) 11/08/24 14:30 Plt Count 204 10^3/cmm (157-399) 11/08/24 14:30 MPV 10.6 fL (7.4-10.4) H 11/08/24 14:30 Neut % (Auto) 82.7 % 11/08/24 14:30 Lymph % (Auto) 11.5 % 11/08/24 14:30 [place] % (Auto) 4.1 % 11/08/24 14:30 Eos % (Auto) 1.0 % 11/08/24 14:30 Baso % (Auto) 0.3 % 11/08/24 14:30 Neut # (Auto) 10.25 10^3/uL (1.8-8.0) H 11/08/24 14:30 Lymph # (Auto) 1.4 10^3/uL (1.5-6.5) L 11/08/24 14:30 [place] # (Auto) 0.5 10^3/uL (0.2-0.9) 11/08/24 14:30 Eos # (Auto) 0.1 10^3/uL (0.0-0.8) 11/08/24 14:30 Baso # (Auto) 0.0 10^3/uL (0.0-0.1) 11/08/24 14:30 Nucleated RBC % (auto) 0 % 11/08/24 14:30 Nucleated RBCs # 0.0 /100WBC 11/08/24 14:30 No radiology studies performed this visit Discharge Plan Discharge Patient Disposition: Home Clinical Impression: Epidural anesthesia-induced headache during puerperium Condition: Stable Prescriptions: No Action acetaminophen [Tylenol Extra Strength] 500 mg Tablet 500 mg PO Q6H PRN (Reason: Fever Or Pain) ibuprofen [Advil] 200 mg Tablet 400 mg PO Q6H PRN (Reason: Fever Or Pain) 28-800 mg-mcg Tablet 1 tab PO DAILY Discharge Orders: Discharge ED (Routine); Ordered 11/08/24 Ordered By: Robe Anand Referrals: Jerri Murphy MD [Primary Care Provider, Family Practice] Patient Instructions: Epidural Blood Patch, Opioid Safety, Pain Management, Patient Portal & Phoebe Instructions Activity Restrictions/Additional Instructions: [facility] It is very important that you follow up as instructed or that you return to the Emergency Department should you have concerns or if your condition changes or worsens in any way. Follow-up with your vacuum pan operator as previously scheduled. Print Language: Malaysian Coding Level of Care Code ED Time Checker for Izabela Hall
[2024-11-08 14:36] LABS: Hematocrit 28.9 % (36-47); Hemoglobin 9.00 g/dL (12.4-14.8); Mean Corpuscular HGB Conc 31.1 g/dL (30-55); Mean Corpuscular Hemoglobin 23.4 pg (27-33); Mean Corpuscular Volume 75.1 fl (85-98); Nucleated Red Blood Cells % 0 %; Platelet Count 204 10^3/cmm (157-399); Red Blood Count 3.85 10^6/uL (3.85-5.65); White Blood Count 12.40 10^3/uL (4.5-13.0)
--- NOTE | 2024-11-08 14:52 | PC.NURSE ---
documented blood patch time out in procedure assessment.
--- NOTE | 2024-11-08 15:00 | ANES.PROC ---
Anesthesia Procedures Procedure/Date: 11/08/24 EPIDURAL BLOOD PATCH Epidural: Time Out Performed: Yes Consents Signed: Procedure Consent Consent: from patient, risks and benefits reviewed and patient agrees to proceed Lumbar Level: L3-L4 Epidural position: sitting Epidural procedure: sterile prep of area, 1% lidocaine to numb the area and 18 g needle Additional Comments: Sterile prep of R hand, arm, and elbow. 28 cc blood obtained sterilely by Corrine Neff CRNA. Injected into L3-4 space by me. patient stated she felt immediately relief. Instructed to Lay flat for 1 hr Other Information: Diagnosis: Postdural puncture headache Patient presents after wet tap for epidural 2 days ago with positional headache, would like to proceed with epidural blood patch
[2024-11-08 15:01] VITALS: BP 145/91; PULSE 66; RESP 16; O2SAT 100
[2024-11-08 17:19] VITALS: BP 124/78; PULSE 64; O2SAT 99
[2024-11-08 17:34] VITALS: BP 124/78; PULSE 66; O2SAT 99
== END 2024-11-08 17:35 | disposition home or self-care (01) ==
PROVIDERS: Emergency Provider Family Medicine; PCP Family Medicine
DX: O89.4 Spinal and epidural anesthesia-induced headache during the puerperium (principal); Z72.0 Tobacco use
CPT/HCPCS: 36415; 85025; 99284; J7030

== ENCOUNTER 2024-11-11 10:54 | Emergency (ER) | payer BC, MEDICAID, SELFPAY ==
--- OUTSIDE RECORDS SUMMARY | 2024-04-14 06:30 | XMS_ITS ---
Author Organization [facility] Address [address] [place] [address] Care Team Providers Care Coordinate Measuring Machine Technician Name Role Phone Silvia Diandra Unavailable [phone] REASON FOR VISIT V&D Encounters Encounter Location Date Provider Diagnosis [place] [address] [place] [address] 04/14/2024 Diandra Vega Plan Of Treatment No Information Progress Notes * Yi SUMMERShDOB: 5 (19 yo F)Acc No.[id number]:04/14/2024 Progress Notes Patient: Diane Zavala Provider: Pearl Vega MD :2005 A ge:18 Y S ex:Female Date:04/14/2024 Address:[address] [place], [place] [id number] Subjective: * Chief Complaints: * V &D Billing Information: * Procedure Codes: * Electronic signature of Brendan Vega MD on 11/11/2024 at 11:06 AM CDT Sign off status: Pending * Provider: Pearl Vega MD Date: 04/14/2024 Generated for Kasia coleman/Sunshine/eTransmitting on: 0 11/11/2024 11:06 AM CDT
--- OUTSIDE RECORDS SUMMARY | 2024-04-17 08:30 | XMS_ITS ---
Author Organization [facility] Address [address] [place] [address] Care Team Providers Care Cognos Name Role Phone Diandra Vega Unavailable [phone] REASON FOR VISIT after u/s Encounters Encounter Location Date Provider Diagnosis [place] [address] [place] [address] 04/17/2024 Diandra Vgea Plan Of Treatment No Information Progress Notes * Yi SUMMERShDOB: 5 (19 yo F)Acc No.[id number]:04/17/2024 Patient: Diane Zavala Provider: Pearl Vega MD :2005 A ge:18 Y S ex:Female Date:04/17/2024 Address:[address] [place], [place] [phone] Subjective: * Chief Complaints: * A fter u/s * Electronic signature of Brendan Vega MD on 11/11/2024 at 11:05 AM CDT Sign off status: Pending * Provider: Pearl Vega MD Date: 0 04/17/2024 Generated for Kasia coleman/Sunshine/eTransmitting on: 0 11/11/2024 11:05 AM CDT
[2024-11-11 10:58] VITALS: BP 132/86; PULSE 100; TEMP 36.3; O2SAT 98; BMI 18.8
--- OUTSIDE RECORDS SUMMARY | 2024-11-11 11:05 | XMS_ITS | Encounter Summary ---
Author Organization [facility] Address [address] [place] [address] Care Team Providers Care Paper Sorter And Counter Name Role Phone Ok Blanco MD Primary Care Provider +1 [phone] Encounter Details Date Type Department Care Team (Latest Contact Info) Description 04/03/2005 Outpatient Historical [facility] [address] [place] [address] AMBULANCE, [facility] PNEUMONIA, ORGANISM NOS (Primary Dx) Social History Tobacco Use Types Packs/Day Years Used Date Smoking Tobacco: Never Assessed Comments Unknown Sex and Gender Information Value Date Recorded Sex Assigned at Not on file Legal Sex Female 4:08 AM SNOW MAKER Gender Identity Not on file Sexual Orientation [...] R/O COVID-19 04/23/2020 04/23/2020 04/24/2020 6:22 AM SNOW MAKER documented as of this encounter Care Teams Paper Sorter And Counter Relationship Specialty Start Date End Date Ok Blanco MD [address] [facility] [address] [place] [phone] PCP - General Family Practice 11/20/18 documented as of this encounter
--- OUTSIDE RECORDS SUMMARY | 2024-11-11 11:05 | XMS_ITS | Encounter Summary ---
Author Organization [facility] Address [address] [place] [address] Care Team Providers Care Cinder Pitman Name Role Phone Ok Blanco MD Primary Care Provider +1 [phone] Encounter Details Date Type Department Care Team (Latest Contact Info) Description 04/06/2005 Outpatient Historical [facility] [address] [address] Zonia Ly, SUPERVISOR GAME FARM [address] [place] [address] Respirat syncytial virus (Primary Dx) Social History Tobacco Use Types Packs/Day Years Used Date Smoking Tobacco: Never Assessed Comments Unknown Sex and Gender Information Value Date Recorded Sex Assigned at Not on file Legal Sex Female 4:08 AM PRINCIPAL STATISTICAL SCIENTIST Gender Identity Not on file Sexual Orientation [...] R/O COVID-19 04/23/2020 04/23/2020 04/24/2020 6:22 AM PRINCIPAL STATISTICAL SCIENTIST documented as of this encounter Care Teams Cinder Pitman Relationship Specialty Start Date End Date kO Blanco MD [address] [address] PCP - General Family Practice 11/20/18 documented as of this encounter
--- OUTSIDE RECORDS SUMMARY | 2024-11-11 11:05 | XMS_ITS | Encounter Summary ---
Author Organization [facility] Address [address] [place] [address] Care Team Providers Care Bellows Filler Name Role Phone Ok Blanco MD Primary Care Provider +1 [phone] Encounter Details Date Type Department Care Team (Latest Contact Info) Description 03/10/2005 Outpatient Historical [facility] [address] [place] [address] Zonia Ly, SHOP SUPERVISOR [address] [place] [address] DIARRHEA NOS (Primary Dx) Social History Tobacco Use Types Packs/Day Years Used Date Smoking Tobacco: Never Assessed Comments Unknown Sex and Gender Information Value Date Recorded Sex Assigned at Not on file Legal Sex Female 4:08 AM REGISTERED RESPIRATORY TECHNICIAN Gender Identity Not on file Sexual Orientation Not on file documented as of this encounter Plan of Treatment Not on file documented as of this encounter Visit Diagnoses Diagnosis Diarrhea- Primary documented in this encounter Additional Health Concerns Infection Onset Date Last Indicated Resolved Time R/O COVID-19 12/12/2019 12/13/2019 12/15/2019 3:01 AM CDT R/O COVID-19 04/23/2020 04/23/2020 04/24/2020 6:22 AM REGISTERED RESPIRATORY TECHNICIAN documented as of this encounter Care Teams Bellows Filler Relationship Specialty Start Date End Date Ok Blanco MD [address] [facility] [address] [place] [phone] PCP - General Family Practice 11/20/18 documented as of this encounter
--- OUTSIDE RECORDS SUMMARY | 2024-11-11 11:05 | XMS_ITS | Patient Health Record ---
Author Organization [facility] Address [address] [place] [address] Support Name Relationship Address Phone Juana Limon Guarantor Unknown [phone] Reason For Referral No Information Medications Medication SIG (Take, Route, Frequency, Duration) Notes Start Date End Date Status Depo-Provera Active Plan Of Treatment No Information Insurance Providers Payer Name Payer Address Payer Phone Subscriber Number Group Number Insured Name Patient Relationship to Insured Coverage Start Date Coverage End Date [employer] [address] [address] [place] [phone] [id number] Diane Summers Self - patient is the insured Medical (General) History Medical History History ICD Code asthma
--- OUTSIDE RECORDS SUMMARY | 2024-11-11 11:05 | XMS_ITS | Encounter Summary ---
Author Organization [facility] Address [address] [place] [address] Care Team Providers Care Cardiothoracic Icu Rn Name Role Phone Ok Blanco MD Primary Care Provider +1 -[phone] Encounter Details Date Type Department Care Team (Latest Contact Info) Description 09/18/2005 Outpatient Historical [facility] [address] [place] [address] Zonia Ly, BICYCLE ASSEMBLER [address] [place] [address] Candidiasis of Unspecified Site (Primary Dx) Social History Tobacco Use Types Packs/Day Years Used Date Smoking Tobacco: Never Assessed Comments Unknown Sex and Gender Information Value Date Recorded Sex Assigned at Not on file Legal Sex Female 4:08 AM BUS AND SYS INTEGRATION SENIOR MANAGER Gender Identity Not on file Sexual [...] COVID-19 04/23/2020 04/23/2020 04/24/2020 6:22 AM BUS AND SYS INTEGRATION SENIOR MANAGER documented as of this encounter Care Teams Cardiothoracic Icu Rn Relationship Specialty Start Date End Date Ok Blanco MD [address] [facility] [address] [place] [address] PCP - General Family Practice 11/20/18 documented as of this encounter
--- OUTSIDE RECORDS SUMMARY | 2024-11-11 11:05 | XMS_ITS | Encounter Summary ---
Author Organization [facility] Address [address] [place] [address] Care Team Providers Care Back Panel Padder Name Role Phone Ok Blanco MD Primary Care Provider +1 -[phone] Encounter Details Date Type Department Care Team (Latest Contact Info) Description 07/05/2005 Outpatient Historical [facility] [address] [place] [address] Zonia Ly, INSPECTOR EXHAUST EMISSIONS [address] [place] [address] Unspecified Otitis Media (Primary Dx); Acute Pharyngitis Social History Tobacco Use Types Packs/Day Years Used Date Smoking Tobacco: Never Assessed Comments Unknown Sex and Gender Information Value Date Recorded Sex Assigned at Not on file Legal Sex Female 4:08 AM STAGE SET DESIGNER Gender Identity Not on file Sexual Orientation [...] R/O COVID-19 04/23/2020 04/23/2020 04/24/2020 6:22 AM STAGE SET DESIGNER documented as of this encounter Care Teams Back Panel Padder Relationship Specialty Start Date End Date Ok Blanco MD [address] [facility] [address] [place] [phone] PCP - General Family Practice 11/20/18 documented as of this encounter
--- OUTSIDE RECORDS SUMMARY | 2024-11-11 11:05 | XMS_ITS | Encounter Summary ---
Author Organization [facility] Address [address] [place] [address] Care Team Providers Care Golf Course Ranger Name Role Phone Ok Blanco MD Primary Care Provider +1 -[phone] Encounter Details Date Type Department Care Team (Latest Contact Info) Description 04/21/2005 Outpatient Historical [facility] [address] [place] [address] Zonia Ly, PLUMBING HARDWARE ASSEMBLER [address] [place] [address] Routine child health exam (Primary Dx); VACCINE FOR DTP + POLIO Social History Tobacco Use Types Packs/Day Years Used Date Smoking Tobacco: Never Assessed Comments Unknown Sex and Gender Information Value Date Recorded Sex Assigned at Not on file Legal Sex Female 4:08 AM EDGING MACHINE CATCHER Gender Identity Not on file Sexual Orientation Not on file documented as of this encounter Plan of Treatment Not on file documented as of this encounter Visit Diagnoses Diagnosis Routine child health exam- Primary Routine or child health check Need for prophylactic vaccination with [id number] with poliomyelitis (DTP + polio) vaccine documented in this encounter Additional Health Concerns Infection Onset Date Last Indicated Resolved Time R/O COVID-19 12/12/2019 12/13/2019 12/15/2019 3:01 AM CDT R/O COVID-19 04/23/2020 04/23/2020 04/24/2020 6:22 AM EDGING MACHINE CATCHER documented as of this encounter Care Teams Golf Course Ranger Relationship Specialty Start Date End Date Ok Blanco MD [address] [address] PCP - General Family Practice 11/20/18 documented as of this encounter
--- OUTSIDE RECORDS SUMMARY | 2024-11-11 11:05 | XMS_ITS | Encounter Summary ---
Author Organization [facility] Address [address] [place] [address] Care Team Providers Care Business Development Consultant Name Role Phone Ok Blanco MD Primary Care Provider +1 -[phone] Encounter Details Date Type Department Care Team (Latest Contact Info) Description 04/03/2005 Outpatient Historical [facility] [address] [place] [address] Zonia Ly, [facility] [address] [place] [address] CHRONIC AIRWAY OBSTRUCTION NEC ([facility]) (Primary Dx) Social History Tobacco Use Types Packs/Day Years Used Date Smoking Tobacco: Never Assessed Comments Unknown Sex and Gender Information Value Date Recorded Sex Assigned at Not on file Legal Sex Female 4:08 AM INTERVENTIONAL RADIOLOGY RN Gender Identity Not on file Sexual Orientation [...] R/O COVID-19 04/23/2020 04/23/2020 04/24/2020 6:22 AM INTERVENTIONAL RADIOLOGY RN documented as of this encounter Care Teams Business Development Consultant Relationship Specialty Start Date End Date Ok Blanco MD [address] [phone] PCP - General Family Practice 11/20/18 documented as of this encounter
--- OUTSIDE RECORDS SUMMARY | 2024-11-11 11:05 | XMS_ITS | Encounter Summary ---
Author Organization [facility] Address [address] [place] [address] Care Team Providers Care Engineering Tech Name Role Phone Ok Blanco MD Primary Care Provider +1 -[phone] Encounter Details Date Type Department Care Team (Latest Contact Info) Description 05/22/2005 Outpatient Historical [facility] [address] [place] [address] Zonia Ly, MOTOR REBUILDER [address] [place] [address] VACCINE FOR H FLU TYPE B (Primary Dx) Social History Tobacco Use Types Packs/Day Years Used Date Smoking Tobacco: Never Assessed Comments Unknown Sex and Gender Information Value Date Recorded Sex Assigned at Not on file Legal Sex Female 4:08 AM CARBON BLOCKS PRESS OPERATOR Gender Identity Not on file Sexual [...] R/O COVID-19 04/23/2020 04/23/2020 04/24/2020 6:22 AM CARBON BLOCKS PRESS OPERATOR documented as of this encounter Care Teams Engineering Tech Relationship Specialty Start Date End Date Ok Blanco MD [address] [facility] [address] [place] [phone] PCP - General Family Practice 11/20/18 documented as of this encounter
--- OUTSIDE RECORDS SUMMARY | 2024-11-11 11:05 | XMS_ITS | Encounter Summary ---
Author Organization [facility] Address [address] [place] [address] Care Team Providers Care Resident Director Name Role Phone Ok Blanco MD Primary Care Provider +1 -[phone] Encounter Details Date Type Department Care Team (Latest Contact Info) Description 03/13/2005 Outpatient Historical [facility] [address] [place] [address] Zonia Ly, [facility] [address] [place] [address] VACCINE FOR DTP + POLIO (Primary Dx); Vaccine for viral hepatitis Social History Tobacco Use Types Packs/Day Years Used Date Smoking Tobacco: Never Assessed Comments Unknown Sex and Gender Information Value Date Recorded Sex Assigned at Not on file Legal Sex Female 4:08 AM OPERATIONS ADMINISTRATIVE ASSISTANT Gender Identity Not on file Sexual Orientation Not on file documented as of this encounter Plan of Treatment Not on file documented as of this encounter Visit Diagnoses Diagnosis Need for prophylactic vaccination with [id number] with poliomyelitis (DTP + polio) vaccine- Primary Vaccine for viral hepatitis Need for prophylactic vaccination and inoculation against viral hepatitis documented in this encounter Additional Health Concerns Infection Onset Date Last Indicated Resolved Time R/O COVID-19 12/12/2019 12/13/2019 12/15/2019 3:01 AM CDT R/O COVID-19 04/23/2020 04/23/2020 04/24/2020 6:22 AM OPERATIONS ADMINISTRATIVE ASSISTANT documented as of this encounter Care Teams Resident Director Relationship Specialty Start Date End Date Ok Blanco MD [address] [address] PCP - General Family Practice 11/20/18 documented as of this encounter
--- OUTSIDE RECORDS SUMMARY | 2024-11-11 11:05 | XMS_ITS | Encounter Summary ---
Author Organization [facility] Address [address] [place] [address] Care Team Providers Care Supervisor Labor Gang Name Role Phone Ok Blanco MD Primary Care Provider +1 -[phone] Encounter Details Date Type Department Care Team (Latest Contact Info) Description 04/10/2005 Outpatient Historical [facility] [address] [place] [address] Zonia Ly, SERVICE DISPATCHER [address] [place] [address] Respirat syncytial virus (Primary Dx) Social History Tobacco Use Types Packs/Day Years Used Date Smoking Tobacco: Never Assessed Comments Unknown Sex and Gender Information Value Date Recorded Sex Assigned at Not on file Legal Sex Female 4:08 AM CLIENT SERVICE PROFESSIONAL Gender Identity Not on file Sexual Orientation [...] 04/23/2020 04/23/2020 04/24/2020 6:22 AM CLIENT SERVICE PROFESSIONAL documented as of this encounter Care Teams Supervisor Labor Gang Relationship Specialty Start Date End Date Ok Blanco MD [address] [facility] [address] [place] [address] PCP - General Family Practice 11/20/18 documented as of this encounter
--- OUTSIDE RECORDS SUMMARY | 2024-11-11 11:05 | XMS_ITS | Encounter Summary ---
Author Organization [facility] Address [address] [place] [address] Care Team Providers Care Geomorphologist Name Role Phone Ok Blanco MD Primary Care Provider +1 -[phone] Encounter Details Date Type Department Care Team (Latest Contact Info) Description 06/05/2005 Outpatient [facility] [address] [place] [address] Zonia Ly, GOLF COURSE DESIGNER [address] [place] [address] Unspecified Otitis Media (Primary Dx) Social History Tobacco Use Types Packs/Day Years Used Date Smoking Tobacco: Never Assessed Comments Unknown Sex and Gender Information Value Date Recorded Sex Assigned at Not on file Legal Sex Female 4:08 AM FURNACE MAINTENANCE Gender Identity Not on file Sexual Orientation Not on file documented as of this encounter Plan of Treatment Not on file documented as of this encounter Visit Diagnoses Diagnosis Unspecified otitis media- Primary documented in this encounter Additional Health Concerns Infection Onset Date Last Indicated Resolved Time R/O COVID-19 12/12/2019 12/13/2019 12/15/2019 3:01 AM CDT R/O COVID-19 04/23/2020 04/23/2020 04/24/2020 6:22 AM FURNACE MAINTENANCE documented as of this encounter Care Teams Geomorphologist Relationship Specialty Start Date End Date Ok Blanco MD [address] [facility] [place] [address] PCP - General Family Practice 11/20/18 documented as of this encounter
--- OUTSIDE RECORDS SUMMARY | 2024-11-11 11:05 | XMS_ITS | Encounter Summary ---
Author Organization [facility] Address [address] [place] [address] Care Team Providers Care Inspector Optical Instrument Name Role Phone Ok Blanco MD Primary Care Provider +1 -[phone] Encounter Details Date Type Department Care Team (Latest Contact Info) Description 09/29/2005 Outpatient Historical [facility] [address] [place] [phone] Zonia Ly, PAINTER DRUM [address] [place] [address] Impetigo (Primary Dx) Social History Tobacco Use Types Packs/Day Years Used Date Smoking Tobacco: Never Assessed Comments Unknown Sex and Gender Information Value Date Recorded Sex Assigned at Not on file Legal Sex Female 4:08 AM TILE SETTER APPRENTICE Gender Identity Not on file Sexual Orientation Not on file documented as of this encounter Plan of Treatment Not on file documented as of this encounter Visit Diagnoses Diagnosis Impetigo- Primary documented in this encounter Additional Health Concerns Infection Onset Date Last Indicated Resolved Time R/O COVID-19 12/12/2019 12/13/2019 12/15/2019 3:01 AM CDT R/O COVID-19 04/23/2020 04/23/2020 04/24/2020 6:22 AM TILE SETTER APPRENTICE documented as of this encounter Care Teams Inspector Optical Instrument Relationship Specialty Start Date End Date Ok Blanco MD [address] [place] [address] PCP - General Family Practice 11/20/18 documented as of this encounter
--- OUTSIDE RECORDS SUMMARY | 2024-11-11 11:05 | XMS_ITS | Encounter Summary ---
Author Organization [facility] Address [address] [place] [address] Care Team Providers Care Director Of Online Education Name Role Phone Ok Blanco MD Primary Care Provider +1 -[phone] Encounter Details Date Type Department Care Team (Latest Contact Info) Description 03/31/2005 Outpatient Historical [facility] [address] [place] [address] Zonia Ly, SERVICES MGR [address] [place] [address] ACUTE URI NOS (Primary Dx) Social History Tobacco Use Types Packs/Day Years Used Date Smoking Tobacco: Never Assessed Comments Unknown Sex and Gender Information Value Date Recorded Sex Assigned at Not on file Legal Sex Female 4:08 AM PROTECTIVE SIGNAL INSTALLER Gender Identity Not on file Sexual Orientation [...] R/O COVID-19 04/23/2020 04/23/2020 04/24/2020 6:22 AM PROTECTIVE SIGNAL INSTALLER documented as of this encounter Care Teams Director Of Online Education Relationship Specialty Start Date End Date Ok Blanco MD [address] [facility] [address] [place] [address] PCP - General Family Practice 11/20/18 documented as of this encounter
--- OUTSIDE RECORDS SUMMARY | 2024-11-11 11:05 | XMS_ITS | Encounter Summary ---
Author Organization [facility] Address [address] [place] [address] Care Team Providers Care Social Media Manager Name Role Phone Ok Blanco MD Primary Care Provider +1 -[phone] Encounter Details Date Type Department Care Team (Late st Contact Info) Description 04/03/2005 Inpatient Historical [facility] Judy Villeda MD [address] [place] [address] ACUTE BRONCHIOLITIS/OTHR INFECT ORG (Primary Dx) Social History Tobacco Use Types Packs/Day Years Used Date Smoking Tobacco: Never Assessed Comments Unknown Sex and Gender Information Value Date Recorded Sex Assigned at Not on file Legal Sex Female 4:08 AM INVESTIGATION MANAGER Gender Identity Not on file Sexual Orientation Not on file documented as of this encounter Plan of Treatment Not on file documented as of this encounter Procedures Procedure Name Priority Date/Time Associated Diagnosis Comments DIFFERENTIAL, MANUAL Routine 04/03/2005 2:38 PM INVESTIGATION MANAGER CBC WITH DIFFERENTIAL Routine 04/03/2005 2:38 PM INVESTIGATION MANAGER BASIC METABOLIC PANEL Routine 04/03/2005 2:37 PM INVESTIGATION MANAGER documented in this encounter Results * (ABNORMAL) DIFFERENTIAL, MANUAL (04/03/2005 2:38 PM INVESTIGATION MANAGER) NEUTROPHILS, SEG 45(H) 15 - 35 % [...] None Seen INTERFACE SYSTEM 04/03/2005 2:38 PM INVESTIGATION MANAGER Judy Villeda MD HEMATOLOGY ORDERABLES COM Fin al Result Performing Organization Address City/[facility] de Phone Number INTERFACE SYSTEM Refer to clinic/hospital department * (ABNORMAL) CBC WITH DIFFERENTIAL (04/03/2005 2:38 PM INVESTIGATION MANAGER) WBC 21.5(H) 5.0 - 21.0 K/ul INTERFACE [...] 12.8 Fl INTERFACE SYSTEM 04/03/2005 2:38 PM INVESTIGATION MANAGER Judy Villeda MD HEMATOLOGY ORDERABLES Final R esult Performing Organization Address City/[facility] de Phone Number INTERFACE SYSTEM Refer to clinic/hospital department * (ABNORMAL) BASIC METABOLIC PANEL (04/03/2005 2:37 PM INVESTIGATION MANAGER) GLUCOSE 89 60 - 100 mg/dL INTERFACE [...] 10.5 mg/dL INTERFACE SYSTEM 04/03/2005 2:37 PM INVESTIGATION MANAGER Judy Villeda MD CHEMISTRY ORDERABLES Final Re sult INTERFACE SYSTEM Refer to clinic/hospital department documented in this encounter Visit Diagnoses Diagnosis Acute bronchiolitis due to other infectious organisms- Primary documented in this encounter Additional Health Concerns Infection Onset Date Last Indicated Resolved Time R/O COVID-19 12/12/2019 12/13/2019 12/15/2019 3:01 AM CDT R/O COVID-19 04/23/2020 04/23/2020 04/24/2020 6:22 AM INVESTIGATION MANAGER documented as of this encounter Care Teams Social Media Manager Relationship Specialty Start Date End Date Ok Blanco MD [address] [phone] PCP - General Family Practice 11/20/18 documented as of this encounter
--- OUTSIDE RECORDS SUMMARY | 2024-11-11 11:05 | XMS_ITS | Encounter Summary ---
Author Organization [facility] Address [address] [place] [address] Care Team Providers Care Personal Vehicle Advisor Name Role Phone Ok Blanco MD Primary Care Provider +1 -[phone] Encounter Details Date Type Department Care Team (Latest Contact Info) Description 07/31/2005 Outpatient Historical [facility] [address] [place] [address] Zonia Ly, TRANSFORMATION SPECIALIST [address] [place] [address] Routine Child Health Exam (Primary Dx) Social History Tobacco Use Types Packs/Day Years Used Date Smoking Tobacco: Never Assessed Comments Unknown Sex and Gender Information Value Date Recorded Sex Assigned at Not on file Legal Sex Female 4:08 AM CIVIL ENGINEERING DRAFTER Gender Identity Not on file Sexual Orientation [...] R/O COVID-19 04/23/2020 04/23/2020 04/24/2020 6:22 AM CIVIL ENGINEERING DRAFTER documented as of this encounter Care Teams Personal Vehicle Advisor Relationship Specialty Start Date End Date Ok Blanco MD [address] [facility] [address] [place] [address] PCP - General Family Practice 11/20/18 documented as of this encounter
--- OUTSIDE RECORDS SUMMARY | 2024-11-11 11:05 | XMS_ITS | Encounter Summary ---
Author Organization [facility] Address [address] [place] [address] Care Team Providers Care Unisaw Operator Name Role Phone Ok Blanco MD Primary Care Provider +1 -[phone] Encounter Details Date Type Department Care Team (Latest Contact Info) Description 06/07/2005 Outpatient Historical [facility] [address] [place] [phone] Zonia Ly, PHARMACY DISTRICT MANAGER [address] [place] [address] Diarrhea (Primary Dx) Social History Tobacco Use Types Packs/Day Years Used Date Smoking Tobacco: Never Assessed Comments Unknown Sex and Gender Information Value Date Recorded Sex Assigned at Not on file Legal Sex Female 4:08 AM CLIENT SUPPORT MANAGER Gender Identity Not on file Sexual Orientation Not on file documented as of this encounter Plan of Treatment Not on file documented as of this encounter Visit Diagnoses Diagnosis Diarrhea- Primary documented in this encounter Additional Health Concerns Infection Onset Date Last Indicated Resolved Time R/O COVID-19 12/12/2019 12/13/2019 12/15/2019 3:01 AM CDT R/O COVID-19 04/23/2020 04/23/2020 04/24/2020 6:22 AM CLIENT SUPPORT MANAGER documented as of this encounter Care Teams Unisaw Operator Relationship Specialty Start Date End Date Ok Blanco MD [address] [facility] [address] [place] [phone] PCP - General Family Practice 11/20/18 documented as of this encounter
--- OUTSIDE RECORDS SUMMARY | 2024-11-11 11:05 | XMS_ITS | Encounter Summary ---
Author Organization [facility] Address [address] [place] [address] Care Team Providers Care Patent Prosecution Attorney Name Role Phone Ok Blanco MD Primary Care Provider +1 -[phone] Encounter Details Date Type Department Care Team (Latest Contact Info) Description 03/29/2005 Outpatient Historical [facility] [address] [place] [phone] Zonia Ly, TROUBLE SHOOTER [address] [place] [address] COUGH (Primary Dx) Social History Tobacco Use Types Packs/Day Years Used Date Smoking Tobacco: Never Assessed Comments Unknown Sex and Gender Information Value Date Recorded Sex Assigned at Not on file Legal Sex Female 4:08 AM TIMBER FRAMER Gender Identity Not on file Sexual Orientation Not on file documented as of this encounter Plan of Treatment Not on file documented as of this encounter Visit Diagnoses Diagnosis Cough- Primary documented in this encounter Additional Health Concerns Infection Onset Date Last Indicated Resolved Time R/O COVID-19 12/12/2019 12/13/2019 12/15/2019 3:01 AM CDT R/O COVID-19 04/23/2020 04/23/2020 04/24/2020 6:22 AM TIMBER FRAMER documented as of this encounter Care Teams Patent Prosecution Attorney Relationship Specialty Start Date End Date Ok Blnaco MD [address] [facility] [address] [place] [phone] PCP - General Family Practice 11/20/18 documented as of this encounter
--- OUTSIDE RECORDS SUMMARY | 2024-11-11 11:05 | XMS_ITS | Encounter Summary ---
Author Organization [facility] Address [address] [place] [address] Care Team Providers Care Customer Quality Specialist Name Role Phone Ok Blanco MD Primary Care Provider +1 -[phone] Encounter Details Date Type Department Care Team (Latest Contact Info) Description 06/28/2005 Outpatient Historical [facility] [address] [place] [phone] Zonia Ly, HOSPICE SUPERINTENDENT [address] [place] [address] Impetigo (Primary Dx) Social History Tobacco Use Types Packs/Day Years Used Date Smoking Tobacco: Never Assessed Comments Unknown Sex and Gender Information Value Date Recorded Sex Assigned at Not on file Legal Sex Female 4:08 AM BINDERY HELPER Gender Identity Not on file Sexual Orientation Not on file documented as of this encounter Plan of Treatment Not on file documented as of this encounter Visit Diagnoses Diagnosis Impetigo- Primary documented in this encounter Additional Health Concerns Infection Onset Date Last Indicated Resolved Time R/O COVID-19 12/12/2019 12/13/2019 12/15/2019 3:01 AM CDT R/O COVID-19 04/23/2020 04/23/2020 04/24/2020 6:22 AM BINDERY HELPER documented as of this encounter Care Teams Customer Quality Specialist Relationship Specialty Start Date End Date Ok Blanco MD [address] [place] [address] PCP - General Family Practice 11/20/18 documented as of this encounter
--- OUTSIDE RECORDS SUMMARY | 2024-11-11 11:05 | XMS_ITS | Encounter Summary ---
Author Organization [facility] Address [address] [place] [address] Care Team Providers Care Retail Experience Specialist Name Role Phone Ok Blanco MD Primary Care Provider +1 -[phone] Encounter Details Date Type Department Care Team (Latest Contact Info) Description 09/27/2005 Outpatient Historical [facility] [address] [place] [phone] Zonia Ly, SHOE STAMPER [address] [place] [address] Impetigo (Primary Dx) Social History Tobacco Use Types Packs/Day Years Used Date Smoking Tobacco: Never Assessed Comments Unknown Sex and Gender Information Value Date Recorded Sex Assigned at Not on file Legal Sex Female 4:08 AM DRAWING PRESS OPERATOR Gender Identity Not on file Sexual Orientation Not on file documented as of this encounter Plan of Treatment Not on file documented as of this encounter Visit Diagnoses Diagnosis Impetigo- Primary documented in this encounter Additional Health Concerns Infection Onset Date Last Indicated Resolved Time R/O COVID-19 12/12/2019 12/13/2019 12/15/2019 3:01 AM CDT R/O COVID-19 04/23/2020 04/23/2020 04/24/2020 6:22 AM DRAWING PRESS OPERATOR documented as of this encounter Care Teams Retail Experience Specialist Relationship Specialty Start Date End Date Ok Blanco MD [address] [place] [address] PCP - General Family Practice 11/20/18 documented as of this encounter
--- OUTSIDE RECORDS SUMMARY | 2024-11-11 11:05 | XMS_ITS | Encounter Summary ---
Author Organization [facility] Address [address] [place] [address] Care Team Providers Care Health Actuary Name Role Phone Ok Blanco MD Primary Care Provider +1 -[phone] Encounter Details Date Type Department Care Team (Latest Contact Info) Description 04/17/2005 Outpatient Historical [facility] [address] [place] [address] Zonia Ly, WOOD MACHINIST [address] [place] [address] Respirat syncytial virus (Primary Dx) Social History Tobacco Use Types Packs/Day Years Used Date Smoking Tobacco: Never Assessed Comments Unknown Sex and Gender Information Value Date Recorded Sex Assigned at Not on file Legal Sex Female 4:08 AM SEED ANALYSIS LABORATORY ASSISTANT Gender Identity Not on file Sexual [...] R/O COVID-19 04/23/2020 04/23/2020 04/24/2020 6:22 AM SEED ANALYSIS LABORATORY ASSISTANT documented as of this encounter Care Teams Health Actuary Relationship Specialty Start Date End Date Ok Blanco MD [address] [facility] [address] [place] [address] PCP - General Family Practice 11/20/18 documented as of this encounter
--- OUTSIDE RECORDS SUMMARY | 2024-11-11 11:05 | XMS_ITS | Encounter Summary ---
Author Organization [facility] Address [address] [place] [address] Care Team Providers Care Flight Attendant Ramp Name Role Phone Ok Blanco MD Primary Care Provider +1 -[phone] Encounter Details Date Type Department Care Team (Latest Contact Info) Description 06/23/2005 Outpatient Historical [facility] [address] [place] [phone] Zonia Ly, INSURANCE JOB TITLES [address] [place] [address] Impetigo (Primary Dx) Social History Tobacco Use Types Packs/Day Years Used Date Smoking Tobacco: Never Assessed Comments Unknown Sex and Gender Information Value Date Recorded Sex Assigned at Not on file Legal Sex Female 4:08 AM SOILED LINEN DISTRIBUTOR Gender Identity Not on file Sexual Orientation Not on file documented as of this encounter Plan of Treatment Not on file documented as of this encounter Visit Diagnoses Diagnosis Impetigo- Primary documented in this encounter Additional Health Concerns Infection Onset Date Last Indicated Resolved Time R/O COVID-19 12/12/2019 12/13/2019 12/15/2019 3:01 AM CDT R/O COVID-19 04/23/2020 04/23/2020 04/24/2020 6:22 AM SOILED LINEN DISTRIBUTOR documented as of this encounter Care Teams Flight Attendant Ramp Relationship Specialty Start Date End Date Ok Blanco MD [address] [place] [address] PCP - General Family Practice 11/20/18 documented as of this encounter
--- OUTSIDE RECORDS SUMMARY | 2024-11-11 11:06 | XMS_ITS | Encounter Summary ---
Author Organization [facility] Address [address] [place] [address] Care Team Providers Care Supervisor [employer] Fab[employer]ation Name Role Phone Ok Blanco MD Primary Care Provider +1 -[phone] Encounter Details Date Type Department Care Team (Latest Contact Info) Description 11/24/2005 Outpatient Historical [facility] [address] [place] [address] Zonia Ly, HAND SLITTER [address] [place] [address] Routine Child Health Exam (Primary Dx) Social History Tobacco Use Types Packs/Day Years Used Date Smoking Tobacco: Never Assessed Comments Unknown Sex and Gender Information Value Date Recorded Sex Assigned at Not on file Legal Sex Female 4:08 AM FUSION ANALYST Gender Identity Not on file Sexual [...] R/O COVID-19 04/23/2020 04/23/2020 04/24/2020 6:22 AM FUSION ANALYST documented as of this encounter Care Teams Supervisor [employer] Relationship Specialty Start Date End Date Ok Blanco MD [address] [facility] [address] [place] [address] PCP - General Family Practice 11/20/18 documented as of this encounter
--- OUTSIDE RECORDS SUMMARY | 2024-11-11 11:06 | XMS_ITS | Encounter Summary ---
Author Organization [facility] Address [address] [place] [address] Care Team Providers Care Textile Machine Mechanic Name Role Phone Ok Blanco MD Primary Care Provider +1 -[phone] Encounter Details Date Type Department Care Team (Latest Contact Info) Description 05/02/2006 Outpatient Historical [facility] Family [facility]- [place] [place] [phone] Jaron Freedman MD [address] [place] [address] Acute Upper Respiratory Infections of Unspecified Site (Primary Dx) Social History Tobacco Use Types Packs/Day Years Used Date Smoking Tobacco: Never Assessed Comments Unknown Sex and Gender Information Value Date Recorded Sex Assigned at Not on file Legal Sex Female 4:08 AM PHYSIOTHERAPY ASSISTANT Gender Identity Not on file Sexual [...] R/O COVID-19 04/23/2020 04/23/2020 04/24/2020 6:22 AM PHYSIOTHERAPY ASSISTANT documented as of this encounter Care Teams Textile Machine Mechanic Relationship Specialty Start Date End Date Ok Blanco MD [address] [phone] PCP - General Family Practice 11/20/18 documented as of this encounter
--- OUTSIDE RECORDS SUMMARY | 2024-11-11 11:06 | XMS_ITS | Encounter Summary ---
Author Organization [facility] Address [address] [place] [address] Care Team Providers Care Body Artist Name Role Phone Ok Blanco MD Primary Care Provider +1 -[phone] Encounter Details Date Type Department Care Team (Latest Contact Info) Description 04/02/2006 Outpatient Historical [facility] [address] [place] [address] Zonia Ly, PROFESSOR OF CHEMICAL ENGINEERING [address] [place] [address] Acute Upper Respiratory Infections of Unspecified Site (Primary Dx) Social History Tobacco Use Types Packs/Day Years Used Date Smoking Tobacco: Never Assessed Comments Unknown Sex and Gender Information Value Date Recorded Sex Assigned at Not on file Legal Sex Female 4:08 AM HYBRID TECHNOLOGIST Gender Identity Not on file Sexual Orientation [...] R/O COVID-19 04/23/2020 04/23/2020 04/24/2020 6:22 AM HYBRID TECHNOLOGIST documented as of this encounter Care Teams Body Artist Relationship Specialty Start Date End Date Ok Blanco MD [address] [facility] [address] [place] [address] PCP - General Family Practice 11/20/18 documented as of this encounter
--- OUTSIDE RECORDS SUMMARY | 2024-11-11 11:06 | XMS_ITS | Encounter Summary ---
Author Organization [facility] Address [address] [facility] Attn: [place] [address] Care Team Providers Care Bronze Plater Name Role Phone Ok Blanco MD Primary Care Provider +1 -[phone] Encounter Details Date Type Department Care Team (Late st Contact Info) Description 03/10/2005 Outpatient Historical Zonia Ly, CANDY PACKER [address] [place] [address] Social History Tobacco Use Types Packs/Day Years Used Date Smoking Tobacco: Never Assessed Comments Unknown Sex and Gender Information Value Date Recorded Sex Assigned at Not on file Legal Sex Female 4:08 AM OSHA INSPECTOR Gender Identity Not on file Sexual Orientation Not on file documented as of this encounter Plan of Treatment Not on file documented as of this encounter Visit Diagnoses Not on filedocumented in this encounter Additional Health Concerns Infection Onset Date Last Indicated Resolved Time R/O COVID-19 12/12/2019 12/13/2019 12/15/2019 3:01 AM CDT R/O COVID-19 04/23/2020 04/23/2020 04/24/2020 6:22 AM OSHA INSPECTOR documented as of this encounter Care Teams Bronze Plater Relationship Specialty Start Date End Date Ok Blanco MD [address] [facility] [address] [place] [address] PCP - General Family Practice 11/20/18 documented as of this encounter
--- OUTSIDE RECORDS SUMMARY | 2024-11-11 11:06 | XMS_ITS | Clinical Summary ---
Author Organization [facility] Address [address] [place] [address] Care Team Providers Care Paper Products Supervisor Name Role Phone Ok Blanco MD Primary Care Provider +1 -[phone] Allergies No known active allergies Medications albuterol HFA 90 mcg inhalerIndication s:Exercise-induce d asthma Take 2 Puffs by inhalation see administration instructions. 6.7 Gram 5 10/03/19 20 Active fluticasone propionate (FLONASE) 50 mcg/spray [place], Suspension nasal inhalerIndication s:Non-seasonal allergic rhinitis, unspecified [...] on file Legal Sex Female 4:08 AM BLACK BELT Gender Identity Not on file Sexual Orientation Not on file Occupation Industry Job Start Date Job End Date Not on file Not on file Not on file Not on file Last Filed Vital Signs Vital Sign Reading Time Taken Comments Blood Pressure 110/70 01/29/2020 1:43 PM BLACK BELT Pulse 98 01/29/2020 1:43 PM BLACK BELT Temperature 37.1 C (98.7 F) 01/29/2020 1:43 PM BLACK BELT Respiratory Rate 16 01/29/2020 1:43 PM BLACK BELT Oxygen Saturation 98% 01/29/2020 1:43 PM BLACK BELT Inhaled Oxygen Concentration - - Weight 51.3 kg (113 lb) 01/29/2020 1:43 PM BLACK BELT Height 167.6 cm (5' 6 ) 01/29/2020 1:43 PM BLACK BELT Body Mass Index 18.24 01/29/2020 1:43 PM BLACK BELT Plan of Treatment Health Maintenance Due Date [...] DETECTED Not Detected 09/12/2019 8:00 AM CDT [facility] GC DNA AMPLIFICATION NOT DETECTED Not Detected 09/12/2019 8:00 AM CDT [facility] Urine URINE SPECIMEN / Unknown Collection / Unknown 09/10/2019 5:55 PM CDT 09/10/2019 6:01 PM CDT Narrative [facility] - 09/12/2019 8:00 AM CDT Results should not be used for the evaluation of suspected sexual abuse or for other medico-legal indications. The only legally accepted results are from culture. Results cannot be used to assess therapeutic success or failure since nucleic acids may persist following antimicrobial therapy. Ok lBanco MD URINE ORDERABLES COM Yaima griggs Result [facility] CLIA# [id number] [address] [place] [address] from Last 3 Months or Most Recently Relevant to Health Maintenance Insurance [facility] [place] Care Teams Paper Products Supervisor Relationship Specialty Start Date End Date Ok Blanco MD [address] [address] PCP - General Family Practice 11/20/18
--- OUTSIDE RECORDS SUMMARY | 2024-11-11 11:06 | XMS_ITS | Encounter Summary ---
Author Organization [facility] Address [address] [place] [address] Care Team Providers Care Corporate Operations Compliance Manager Name Role Phone Ok Blanco MD Primary Care Provider +1 -[phone] Encounter Details Date Type Department Care Team (Latest Contact Info) Description 2004 [facility]patient [facility] [address] [place] [address] Zonia Ly, [facility] [address] [place] [phone] Vaccine for viral hepatitis (Primary Dx); VACCINE FOR DTP + POLIO; VACCINE FOR H FLU TYPE B Social History Tobacco Use Types Packs/Day Years Used Date Smoking Tobacco: Never Assessed Comments Unknown Sex and Gender Information Value Date Recorded Sex Assigned at Not on file Legal Sex Female 4:08 AM VERTICAL LATHE OPERATOR Gender Identity Not on file Sexual Orientation Not on file documented as of this encounter Plan of Treatment Not on file documented as of this encounter Visit Diagnoses Diagnosis Vaccine for viral hepatitis- Primary Need for prophylactic vaccination and inoculation against viral hepatitis Need for prophylactic vaccination with [id number] with poliomyelitis (DTP + polio) vaccine Need for prophylactic vaccination against Hemophilus influenza type B (Hib) documented in this encounter Additional Health Concerns Infection Onset Date Last Indicated Resolved Time R/O COVID-19 12/12/2019 12/13/2019 12/15/2019 3:01 AM CDT R/O COVID-19 04/23/2020 04/23/2020 04/24/2020 6:22 AM VERTICAL LATHE OPERATOR documented as of this encounter Care Teams Corporate Operations Compliance Manager Relationship Specialty Start Date End Date Ok Blanco MD [address] [address] PCP - General Family Practice 11/20/18 documented as of this encounter
--- OUTSIDE RECORDS SUMMARY | 2024-11-11 11:06 | XMS_ITS | Patient Health Record ---
Author Organization [facility] Address [address] [place] [address] Care Team Providers Care Blender Operator Name Role Phone Diandra Vega Unavailable [phone] Reason For Referral No Information Encounters Encounter Location Date Provider Diagnosis [place] [address] [place] [address] 03/05/2024 Diandra Vega Plan Of Treatment No Information Insurance Providers Payer Name Payer Address Payer Phone Subscriber Number Group Number Insured Name Patient Relationship to Insured Coverage Start Date Coverage End Date Home State Health Plan Medicaid Replacement [address] [place] [address] [id number] Diane Summers Self - patient is the insured [place] Medicaid [address] [place] [address] [id number] Diane Summers Self - patient is the insured
--- OUTSIDE RECORDS SUMMARY | 2024-11-11 11:06 | XMS_ITS | Encounter Summary ---
Author Organization [facility] Address [address] [place] [address] Care Team Providers Care Skein Straightener Name Role Phone Ok Blanco MD Primary Care Provider +1 -[phone] Encounter Details Date Type Department Care Team (Latest Contact Info) Description 01/31/[address] [facility] Family Medicine [place] [address] [address] Zonia Ly, ENTERPRISE ARCHITECT MANAGER [address] [place] [address] ACUTE URI NOS (Primary Dx) Social History Tobacco Use Types Packs/Day Years Used Date Smoking Tobacco: Never Assessed Comments Unknown Sex and Gender Information Value Date Recorded Sex Assigned at Not on file Legal Sex Female 4:08 AM RECORDS ANALYSIS MANAGER Gender Identity Not on file Sexual [...] R/O COVID-19 04/23/2020 04/23/2020 04/24/2020 6:22 AM RECORDS ANALYSIS MANAGER documented as of this encounter Care Teams Skein Straightener Relationship Specialty Start Date End Date Ok Blanco MD [address] [address] PCP - General Family Practice 11/20/18 documented as of this encounter
--- OUTSIDE RECORDS SUMMARY | 2024-11-11 11:06 | XMS_ITS | Encounter Summary ---
Author Organization [facility] Address [address] [place] [address] Care Team Providers Care Laborer Starch Factory Name Role Phone Ok Blanco MD Primary Care Provider +1 -[phone] Encounter Details Date Type Department Care Team (Latest Contact Info) Description 12/06/2005 Outpatient Historical [facility] [address] [place] [phone] Zonia Ly, CONSULTANT TECHNOLOGY [address] [place] [address] Acute Pharyngitis (Primary Dx) Social History Tobacco Use Types Packs/Day Years Used Date Smoking Tobacco: Never Assessed Comments Unknown Sex and Gender Information Value Date Recorded Sex Assigned at Not on file Legal Sex Female 4:08 AM CHRISTMAS BELL RINGER Gender Identity Not on file Sexual Orientation Not on file documented as of this encounter Plan of Treatment Not on file documented as of this encounter Visit Diagnoses Diagnosis Acute pharyngitis- Primary documented in this encounter Additional Health Concerns Infection Onset Date Last Indicated Resolved Time R/O COVID-19 12/12/2019 12/13/2019 12/15/2019 3:01 AM CDT R/O COVID-19 04/23/2020 04/23/2020 04/24/2020 6:22 AM CHRISTMAS BELL RINGER documented as of this encounter Care Teams Laborer Starch Factory Relationship Specialty Start Date End Date Ok Blanco MD [address] [facility] [address] [place] [address] PCP - General Family Practice 11/20/18 documented as of this encounter
--- OUTSIDE RECORDS SUMMARY | 2024-11-11 11:06 | XMS_ITS | Encounter Summary ---
Author Organization [facility] Address [address] [place] [address] Care Team Providers Care Location Analyst Name Role Phone Ok Blanco MD Primary Care Provider +1 -[phone] Encounter Details Date Type Department Care Team (Latest Contact Info) Description 02/24/2005 Outpatient Historical [facility] [address] [place] [address] Zonia Ly, INSURANCE ADMINISTRATIVE ASSISTANT [address] [place] [address] PNEUMONIA, ORGANISM NOS (Primary Dx) Social History Tobacco Use Types Packs/Day Years Used Date Smoking Tobacco: Never Assessed Comments Unknown Sex and Gender Information Value Date Recorded Sex Assigned at Not on file Legal Sex Female 4:08 AM HARBOR BOAT PILOT Gender Identity Not on file Sexual Orientation [...] R/O COVID-19 04/23/2020 04/23/2020 04/24/2020 6:22 AM HARBOR BOAT PILOT documented as of this encounter Care Teams Location Analyst Relationship Specialty Start Date End Date Ok Blanco MD [address] [address] PCP - General Family Practice 11/20/18 documented as of this encounter
--- OUTSIDE RECORDS SUMMARY | 2024-11-11 11:06 | XMS_ITS | Encounter Summary ---
Author Organization [facility] Address [address] [place] [address] Care Team Providers Care Inspector Clip On Sunglasses Name Role Phone Ok Blanco MD Primary Care Provider +1 -[phone] Encounter Details Date Type Department Care Team (Latest Contact Info) Description 10/23/2005 Outpatient Historical [facility] [address] [place] [address] Zonia Ly, ENGRAVER OPTICAL FRAMES [address] [place] [address] Routine Child Health Exam (Primary Dx) Social History Tobacco Use Types Packs/Day Years Used Date Smoking Tobacco: Never Assessed Comments Unknown Sex and Gender Information Value Date Recorded Sex Assigned at Not on file Legal Sex Female 4:08 AM PROJECT MANAGER INTERIOR DESIGN Gender Identity Not on file Sexual Orientation [...] R/O COVID-19 04/23/2020 04/23/2020 04/24/2020 6:22 AM PROJECT MANAGER INTERIOR DESIGN documented as of this encounter Care Teams Inspector Clip On Sunglasses Relationship Specialty Start Date End Date Ok Blanco MD [address] [facility] [address] [place] [address] PCP - General Family Practice 11/20/18 documented as of this encounter
--- OUTSIDE RECORDS SUMMARY | 2024-11-11 11:06 | XMS_ITS | Encounter Summary ---
Author Organization [facility] Address [address] [place] [address] Care Team Providers Care International Nurse Name Role Phone Ok Blanco MD Primary Care Provider +1 -[phone] Encounter Details Date Type Department Care Team (Latest Contact Info) Description 05/09/2006 Outpatient Historical [facility] [address] [place] [address] Zonia Ly, CARTON FORMING MACHINE OPERATOR [address] [place] [address] Bronchopneumonia, Organism Unspecified (Primary Dx) Social History Tobacco Use Types Packs/Day Years Used Date Smoking Tobacco: Never Assessed Comments Unknown Sex and Gender Information Value Date Recorded Sex Assigned at Not on file Legal Sex Female 4:08 AM LOADER MALT HOUSE Gender Identity Not on file Sexual Orientation Not on file documented as of this encounter Plan of Treatment Not on file documented as of this encounter Visit Diagnoses Diagnosis Bronchopneumonia, organism unspecified- Primary documented in this encounter Additional Health Concerns Infection Onset Date Last Indicated Resolved Time R/O COVID-19 12/12/2019 12/13/2019 12/15/2019 3:01 AM CDT R/O COVID-19 04/23/2020 04/23/2020 04/24/2020 6:22 AM LOADER MALT HOUSE documented as of this encounter Care Teams International Nurse Relationship Specialty Start Date End Date Ok Blanco MD [address] [facility] [address] [place] [address] PCP - General Family Practice 11/20/18 documented as of this encounter
--- OUTSIDE RECORDS SUMMARY | 2024-11-11 11:06 | XMS_ITS | Encounter Summary ---
Author Organization [facility] Address [address] [place] [address] Care Team Providers Care Electric Range Assembler Name Role Phone Ok Blanco MD Primary Care Provider +1 -[phone] Encounter Details Date Type Department Care Team (Latest Contact Info) Description 02/19/2006 Outpatient Historical [facility] Family [facility]- [place] [address] [place] [phone] Jaron Freedman MD [address] [place] [address] Acute Upper Respiratory Infections of Unspecified Site (Primary Dx) Social History Tobacco Use Types Packs/Day Years Used Date Smoking Tobacco: Never Assessed Comments Unknown Sex and Gender Information Value Date Recorded Sex Assigned at Not on file Legal Sex Female 4:08 AM CRITICAL POWER TECHNICIAN Gender Identity Not on file Sexual [...] R/O COVID-19 04/23/2020 04/23/2020 04/24/2020 6:22 AM CRITICAL POWER TECHNICIAN documented as of this encounter Care Teams Electric Range Assembler Relationship Specialty Start Date End Date Ok Blanco MD [address] [address] PCP - General Family Practice 11/20/18 documented as of this encounter
--- OUTSIDE RECORDS SUMMARY | 2024-11-11 11:06 | XMS_ITS | Encounter Summary ---
Author Organization [facility] Address [address] [place] [address] Care Team Providers Care Induction Machine Setter Name Role Phone Ok Blanco MD Primary Care Provider +1 -[phone] Encounter Details Date Type Department Care Team (Latest Contact Info) Description 04/30/2006 Outpatient Historical [facility] [address] [place] [address] Zonia Ly, INFORMATION SECURITY ANALYST [address] [place] [address] Acute Upper Respiratory Infections of Unspecified Site (Primary Dx) Social History Tobacco Use Types Packs/Day Years Used Date Smoking Tobacco: Never Assessed Comments Unknown Sex and Gender Information Value Date Recorded Sex Assigned at Not on file Legal Sex Female 4:08 AM ONLINE ADVERTISING DIRECTOR Gender Identity Not on file Sexual Orientation [...] COVID-19 04/23/2020 04/23/2020 04/24/2020 6:22 AM ONLINE ADVERTISING DIRECTOR documented as of this encounter Care Teams Induction Machine Setter Relationship Specialty Start Date End Date Ok Blanco MD [address] [facility], [facility] [address] [place] [address] PCP - General Family Practice 11/20/18 documented as of this encounter
--- OUTSIDE RECORDS SUMMARY | 2024-11-11 11:06 | XMS_ITS | Encounter Summary ---
Author Organization [facility] Address [address] [place] [address] Care Team Providers Care Taxation Economist Name Role Phone Ok Blanco MD Primary Care Provider +1 -[phone] Encounter Details Date Type Department Care Team (Late st Contact Info) Description 04/11/2007 Outpatient Historical [facility] [address] [place] [phone] Zonia Ly, FIELD RETURN REPAIRER [address] [place] [address] Social History Tobacco Use Types Packs/Day Years Used Date Smoking Tobacco: Never Assessed Comments Unknown Sex and Gender Information Value Date Recorded Sex Assigned at Not on file Legal Sex Female 4:08 AM HEAD KNITTING MACHINE FIXER Gender Identity Not on file Sexual Orientation Not on file documented as of this encounter Plan of Treatment Not on file documented as of this encounter Visit Diagnoses Not on filedocumented in this encounter Additional Health Concerns Infection Onset Date Last Indicated Resolved Time R/O COVID-19 12/12/2019 12/13/2019 12/15/2019 3:01 AM CDT R/O COVID-19 04/23/2020 04/23/2020 04/24/2020 6:22 AM HEAD KNITTING MACHINE FIXER documented as of this encounter Care Teams Taxation Economist Relationship Specialty Start Date End Date Ok Blanco MD [address] [facility], [facility] [address] [place] [address] PCP - General Family Practice 11/20/18 documented as of this encounter
--- OUTSIDE RECORDS SUMMARY | 2024-11-11 11:06 | XMS_ITS | Encounter Summary ---
Author Organization [facility] Address [address] [place] [address] Care Team Providers Care Tire Shop Manager Name Role Phone Ok Blanco MD Primary Care Provider +1 -[phone] Encounter Details Date Type Department Care Team (Latest Contact Info) Description 03/06/2005 Outpatient Historical [facility] [address] [place] [address] Zonia Ly, SOCIAL SCIENCES CHAIR [address] [place] [address] DIARRHEA NOS (Primary Dx); TEETHING SYNDROME Social History Tobacco Use Types Packs/Day Years Used Date Smoking Tobacco: Never Assessed Comments Unknown Sex and Gender Information Value Date Recorded Sex Assigned at Not on file Legal Sex Female 4:08 AM EEO OFFICER Gender Identity Not on file Sexual Orientation Not on file documented as of this encounter Plan of Treatment Not on file documented as of this encounter Visit Diagnoses Diagnosis Diarrhea- Primary Teething syndrome documented in this encounter Additional Health Concerns Infection Onset Date Last Indicated Resolved Time R/O COVID-19 12/12/2019 12/13/2019 12/15/2019 3:01 AM CDT R/O COVID-19 04/23/2020 04/23/2020 04/24/2020 6:22 AM EEO OFFICER documented as of this encounter Care Teams Tire Shop Manager Relationship Specialty Start Date End Date Ok Blanco MD [address] [facility] [address] [place] [address] PCP - General Family Practice 11/20/18 documented as of this encounter
--- OUTSIDE RECORDS SUMMARY | 2024-11-11 11:06 | XMS_ITS | Encounter Summary ---
Author Organization [facility] Address [address] [place] [address] Care Team Providers Care Tool Maintenance Worker Name Role Phone Ok Blanco MD Primary Care Provider +1 -[phone] Encounter Details Date Type Department Care Team (Latest Contact Info) Description 05/23/[address] [facility] [address] [place] [address] Zonia Ly, CAREERS ADVISER [address] [place] [address] Acute Upper Respiratory Infections of Unspecified Site (Primary Dx) Social History Tobacco Use Types Packs/Day Years Used Date Smoking Tobacco: Never Assessed Comments Unknown Sex and Gender Information Value Date Recorded Sex Assigned at Not on file Legal Sex Female 4:08 AM FINANCE INSURANCE MANAGER Gender Identity Not on file Sexual [...] R/O COVID-19 04/23/2020 04/23/2020 04/24/2020 6:22 AM FINANCE INSURANCE MANAGER documented as of this encounter Care Teams Tool Maintenance Worker Relationship Specialty Start Date End Date Ok Blanco MD [address] [facility] [address] [place] [address] PCP - General Family Practice 11/20/18 documented as of this encounter
--- OUTSIDE RECORDS SUMMARY | 2024-11-11 11:06 | XMS_ITS | Encounter Summary ---
Author Organization [facility] Address [address] [place] [address] Care Team Providers Care Lighthouse Keeper Name Role Phone Ok Blanco MD Primary Care Provider +1 -[phone] Encounter Details Date Type Department Care Team (Latest Contact Info) Description 05/02/2006 Outpatient Historical [facility] Family Medicine- [place] [address] [place] [phone] Jaron Freedman MD [address] [place] [address] Viral Infection (Primary Dx) Social History Tobacco Use Types Packs/Day Years Used Date Smoking Tobacco: Never Assessed Comments Unknown Sex and Gender Information Value Date Recorded Sex Assigned at Not on file Legal Sex Female 4:08 AM SPORTS NUTRITIONIST Gender Identity Not on file Sexual Orientation [...] R/O COVID-19 04/23/2020 04/23/2020 04/24/2020 6:22 AM SPORTS NUTRITIONIST documented as of this encounter Care Teams Lighthouse Keeper Relationship Specialty Start Date End Date Ok Blanco MD [address] [address] PCP - General Family Practice 11/20/18 documented as of this encounter
--- OUTSIDE RECORDS SUMMARY | 2024-11-11 11:06 | XMS_ITS | Encounter Summary ---
Author Organization [facility] Address [address] [place] [address] Care Team Providers Care Radius Corner Machine Operator Name Role Phone Ok Blanco MD Primary Care Provider +1 -[phone] Encounter Details Date Type Department Care Team (Latest Contact Info) Description 08/17/2006 Outpatient Historical [facility] [address] [place] [address] Zonia Ly, PACK OUT OPERATOR [address] [place] [address] Acute Upper Respiratory Infections of Unspecified Site (Primary Dx) Social History Tobacco Use Types Packs/Day Years Used Date Smoking Tobacco: Never Assessed Comments Unknown Sex and Gender Information Value Date Recorded Sex Assigned at Not on file Legal Sex Female 4:08 AM MISSILE FACILITIES REPAIRER Gender Identity Not on file Sexual Orientation [...] R/O COVID-19 04/23/2020 04/23/2020 04/24/2020 6:22 AM MISSILE FACILITIES REPAIRER documented as of this encounter Care Teams Radius Corner Machine Operator Relationship Specialty Start Date End Date Ok Blanco MD [address] [facility] [address] [place] [address] PCP - General Family Practice 11/20/18 documented as of this encounter
--- OUTSIDE RECORDS SUMMARY | 2024-11-11 11:06 | XMS_ITS | Encounter Summary ---
Author Organization [facility] Address [address] [place] [address] Care Team Providers Care Shrink Pit Supervisor Name Role Phone Ok Blanco MD Primary Care Provider +1 -[phone] Encounter Details Date Type Department Care Team (Latest Contact Info) Description 05/30/2006 Outpatient Historical [facility] Family Medicine- [place] [address] [place] [address] Jaron Freedman MD [address] [place] [address] Carbuncle of Buttock (Primary Dx); Acute Upper Respiratory Infections of Unspecified Site Social History Tobacco Use Types Packs/Day Years Used Date Smoking Tobacco: Never Assessed Comments Unknown Sex and Gender Information Value Date Recorded Sex Assigned at Not on file Legal Sex Female 4:08 AM NURSE HEAD Gender Identity Not on file Sexual Orientation [...] R/O COVID-19 04/23/2020 04/23/2020 04/24/2020 6:22 AM NURSE HEAD documented as of this encounter Care Teams Shrink Pit Supervisor Relationship Specialty Start Date End Date Ok Blanco MD [address] [address] PCP - General Family Practice 11/20/18 documented as of this encounter
--- OUTSIDE RECORDS SUMMARY | 2024-11-11 11:06 | XMS_ITS | Encounter Summary ---
Author Organization [facility] Address [address] [place] [address] Care Team Providers Care Clinical Asst Name Role Phone Ok lBanco MD Primary Care Provider +1 -[phone] Encounter Details Date Type Department Care Team (Latest Contact Info) Description 01/18/2005 Outpatient Historical [facility] [address] [place] [address] Zonia Ly, DROP BOARD WORKER [address] [place] [address] CONJUNCTIVITIS NOS (Primary Dx) Social History Tobacco Use Types Packs/Day Years Used Date Smoking Tobacco: Never Assessed Comments Unknown Sex and Gender Information Value Date Recorded Sex Assigned at Not on file Legal Sex Female 4:08 AM DRAWING HAND Gender Identity Not on file Sexual Orientation [...] COVID-19 04/23/2020 04/23/2020 04/24/2020 6:22 AM DRAWING HAND documented as of this encounter Care Teams Clinical Asst Relationship Specialty Start Date End Date Ok Blanco MD [address] [facility] [address] [place] [address] PCP - General Family Practice 11/20/18 documented as of this encounter
--- OUTSIDE RECORDS SUMMARY | 2024-11-11 11:06 | XMS_ITS | Clinical Summary ---
Author Organization [facility] Address [address] [place] [address] Care Team Providers Care Plastics Engineering Teacher Name Role Phone Ok Blanco MD Primary Care Provider +1 -[phone] Allergies No known active allergies Medications No [...] on file Legal Sex Female 3:27 PM RADIO/TV TECHNICIAN Gender Identity Not on file Sexual Orientation Not on file Last Filed Vital Signs Vital Sign Reading Time Taken Comments Blood Pressure 126/90 02/19/2023 2:30 PM RADIO/TV TECHNICIAN Pulse 91 02/19/2023 2:30 PM RADIO/TV TECHNICIAN Temperature 36.6 C (97.8 F) 02/19/2023 2:30 PM RADIO/TV TECHNICIAN Respiratory Rate 20 02/19/2023 2:30 PM RADIO/TV TECHNICIAN Oxygen Saturation 98% 02/19/2023 2:30 PM RADIO/TV TECHNICIAN Inhaled Oxygen Concentration - - Weight 51.7 kg (114 lb) 02/19/2023 1:45 PM RADIO/TV TECHNICIAN Height 165.1 cm (5' 5 ) 02/19/2023 1:45 PM RADIO/TV TECHNICIAN Body Mass Index 18.97 02/19/2023 1:45 PM RADIO/TV TECHNICIAN Plan of Treatment Health Maintenance Due [...] DETECTED Not Detected 09/12/2019 8:00 AM CDT [facility] GC DNA AMPLIFICATION NOT DETECTED Not Detected 09/12/2019 8:00 AM CDT [facility] Urine URINE SPECIMEN / Unknown Collection / Unknown 09/10/2019 5:55 PM CDT 09/11/2019 8:45 PM CDT [facility] - 09/12/2019 8:00 AM CDT Results should not be used for the evaluation of suspected sexual abuse or for other medico-legal indications. The only legally accepted results are from culture. Results cannot be used to assess therapeutic success or failure since nucleic acids may persist following antimicrobial therapy. Ok Blanco MD URINE ORDERABLES COM Yaima griggs Result Performing Organization Address City/State/[facility] Co de Phone Number [facility] CLIA# [id number] [address] [place] [address] [facility] CLIA# [id number] [address] [place] [address] from Last 3 Months or Most Recently Relevant to Health Maintenance Insurance MEDICAID MEDICAID Care Teams Plastics Engineering Teacher Relationship Specialty Start Date End Date Ok Blanco MD [address] [address] PCP - General Family Practice 11/20/18
--- OUTSIDE RECORDS SUMMARY | 2024-11-11 11:06 | XMS_ITS | Encounter Summary ---
Author Organization [facility] Address [address] [place] [address] Care Team Providers Care Herbarium Worker Name Role Phone Ok Blanco MD Primary Care Provider +1 [phone] Encounter Details Date Type Department Care Team (Latest Contact Info) Description 02/20/2005 Outpatient Historical [facility] [address] [place] [address] Zonia Ly, ELEMENTARY ELL TEACHER [address] [place] [address] ACUTE URI NOS (Primary Dx) Social History Tobacco Use Types Packs/Day Years Used Date Smoking Tobacco: Never Assessed Comments Unknown Sex and Gender Information Value Date Recorded Sex Assigned at Not on file Legal Sex Female 4:08 AM SPORTING GOODS SALES MANAGER Gender Identity Not on file Sexual [...] R/O COVID-19 04/23/2020 04/23/2020 04/24/2020 6:22 AM SPORTING GOODS SALES MANAGER documented as of this encounter Care Teams Herbarium Worker Relationship Specialty Start Date End Date Ok Blanco MD [address] [facility] [address] [place] [address] PCP - General Family Practice 11/20/18 documented as of this encounter
--- OUTSIDE RECORDS SUMMARY | 2024-11-11 11:06 | XMS_ITS | Encounter Summary ---
Author Organization [facility] Address [address] [place] [address] Care Team Providers Care Clamp Operator Name Role Phone Ok Blanco MD Primary Care Provider +1 [phone] Encounter Details Date Type Department Care Team (Latest Contact Info) Description 04/18/2006 Outpatient Historical [facility] [address] [place] [address] Zonia Ly, TRAILER RENTAL CLERK [address] [place] [address] Streptococcal Sore Throat (Primary Dx) Social History Tobacco Use Types Packs/Day Years Used Date Smoking Tobacco: Never Assessed Comments Unknown Sex and Gender Information Value Date Recorded Sex Assigned at Not on file Legal Sex Female 4:08 AM OCCUPATIONAL THERAPY TEACHER Gender Identity Not on file Sexual Orientation Not on file documented as of this encounter Plan of Treatment Not on file documented as of this encounter Visit Diagnoses Diagnosis Streptococcal sore throat- Primary documented in this encounter Additional Health Concerns Infection Onset Date Last Indicated Resolved Time R/O COVID-19 12/12/2019 12/13/2019 12/15/2019 3:01 AM CDT R/O COVID-19 04/23/2020 04/23/2020 04/24/2020 6:22 AM OCCUPATIONAL THERAPY TEACHER documented as of this encounter Care Teams Clamp Operator Relationship Specialty Start Date End Date Ok Blanco MD [address] [facility] [address] [place] [address] PCP - General Family Practice 11/20/18 documented as of this encounter
--- OUTSIDE RECORDS SUMMARY | 2024-11-11 11:06 | XMS_ITS | Encounter Summary ---
Author Organization [facility] Address [address] [place] [address] Care Team Providers Care Supervisor Residential Name Role Phone Ok Blanco MD Primary Care Provider [phone] [phone] Encounter Details Date Type Department Care Team (Late st Contact Info) Description 04/04/2007 Outpatient Historical [facility] [address] [place] [phone] Zonia Ly, TIPPLE REPAIRER [address] [place] [id number] Social History Tobacco Use Types Packs/Day Years Used Date Smoking Tobacco: Never Assessed Comments Unknown Sex and Gender Information Value Date Recorded Sex Assigned at Not on file Legal Sex Female 4:08 AM POWDERMAN Gender Identity Not on file Sexual Orientation Not on file documented as of this encounter Plan of Treatment Not on file documented as of this encounter Visit Diagnoses Not on filedocumented in this encounter Additional Health Concerns Infection Onset Date Last Indicated Resolved Time R/O COVID-19 12/12/2019 12/13/2019 12/15/2019 3:01 AM CDT R/O COVID-19 04/23/2020 04/23/2020 04/24/2020 6:22 AM POWDERMAN documented as of this encounter Care Teams Supervisor Residential Relationship Specialty Start Date End Date Ok Blanco MD [address] [facility] [address] [place] [phone] PCP - General Family Practice 11/20/18 documented as of this encounter
--- OUTSIDE RECORDS SUMMARY | 2024-11-11 11:06 | XMS_ITS | Encounter Summary ---
Author Organization [facility] Address [address] [place] [address] Care Team Providers Care Abrasive Band Winder Name Role Phone Ok Blanco MD Primary Care Provider +1 [phone] Encounter Details Date Type Department Care Team (Latest Contact Info) Description 05/11/2006 Outpatient Historical [facility] [address] [place] [address] Zonia Ly, CANDY MAKER HELPER [address] [place] [address] Acute Upper Respiratory Infections of Unspecified Site (Primary Dx) Social History Tobacco Use Types Packs/Day Years Used Date Smoking Tobacco: Never Assessed Comments Unknown Sex and Gender Information Value Date Recorded Sex Assigned at Not on file Legal Sex Female 4:08 AM NURSE COLLEGE Gender Identity Not on file Sexual Orientation [...] COVID-19 04/23/2020 04/23/2020 04/24/2020 6:22 AM NURSE COLLEGE documented as of this encounter Care Teams Abrasive Band Winder Relationship Specialty Start Date End Date Ok Blanco MD [address] [facility] [address] [place] [address] PCP - General Family Practice 11/20/18 documented as of this encounter
--- OUTSIDE RECORDS SUMMARY | 2024-11-11 11:06 | XMS_ITS | Encounter Summary ---
Author Organization [facility] Address [address] [place] [address] Care Team Providers Care Senior J2Ee Developer Name Role Phone Ok Blanco MD Primary Care Provider [phone] [phone] Encounter Details Date Type Department Care Team (Latest Contact Info) Description 05/18/2006 Outpatient Historical [facility] [address] [place] [address] Zonia Ly, SPOOL TENDER [address] [place] [address] Acute Upper Respiratory Infections of Unspecified Site (Primary Dx) Social History Tobacco Use Types Packs/Day Years Used Date Smoking Tobacco: Never Assessed Comments Unknown Sex and Gender Information Value Date Recorded Sex Assigned at Not on file Legal Sex Female 4:08 AM ESTABLISHMENT GUIDE Gender Identity Not on file Sexual Orientation [...] R/O COVID-19 04/23/2020 04/23/2020 04/24/2020 6:22 AM ESTABLISHMENT GUIDE documented as of this encounter Care Teams Senior J2Ee Developer Relationship Specialty Start Date End Date Ok Blanco MD [address] [facility] [address] [place] [address] PCP - General Family Practice 11/20/18 documented as of this encounter
--- OUTSIDE RECORDS SUMMARY | 2024-11-11 11:06 | XMS_ITS | Encounter Summary ---
Author Organization [facility] Address [address] [place] [address] Care Team Providers Care Coach Tour Driver Name Role Phone Ok Blanco MD Primary Care Provider [phone] [phone] Encounter Details Date Type Department Care Team (Latest Contact Info) Description 2004 Outpatient Historical [facility] [address] [place] [address] Zonia Ly, HOPPER FILLER [address] [place] [address] Routine child health exam (Primary Dx) Social History Tobacco Use Types Packs/Day Years Used Date Smoking Tobacco: Never Assessed Comments Unknown Sex and Gender Information Value Date Recorded Sex Assigned at Not on file Legal Sex Female 4:08 AM THREAD SPOOLER Gender Identity Not on file Sexual Orientation [...] R/O COVID-19 04/23/2020 04/23/2020 04/24/2020 6:22 AM THREAD SPOOLER documented as of this encounter Care Teams Coach Tour Driver Relationship Specialty Start Date End Date Ok Blanco MD [address] [facility] [address] [place] [address] PCP - General Family Practice 11/20/18 documented as of this encounter
--- OUTSIDE RECORDS SUMMARY | 2024-11-11 11:06 | XMS_ITS | Encounter Summary ---
Author Organization [facility] Address [address] [place] [address] Care Team Providers Care Global Product Manager Name Role Phone Ok Blanco MD Primary Care Provider +1 [phone] Encounter Details Date Type Department Care Team (Latest Contact Info) Description 04/09/2006 Outpatient Historical [facility] [address] [place] [address] Zonia Ly, WHEEL CUTTER [address] [place] [address] Acute Upper Respiratory Infections of Unspecified Site (Primary Dx) Social History Tobacco Use Types Packs/Day Years Used Date Smoking Tobacco: Never Assessed Comments Unknown Sex and Gender Information Value Date Recorded Sex Assigned at Not on file Legal Sex Female 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
--- OUTSIDE RECORDS SUMMARY | 2024-11-11 11:06 | XMS_ITS | Encounter Summary ---
Author Organization [facility] Address [address] [place] [address] Care Team Providers Care Knitting Supervisor Name Role Phone Ok Blanco MD Primary Care Provider +1 [phone] Encounter Details Date Type Department Care Team (Latest Contact Info) Description 02/27/2005 Outpatient Historical [facility] [address] [place] [address] Zonia Ly, MOTOR POOL CLERK [address] [place] [address] PNEUMONIA, ORGANISM NOS (Primary Dx) Social History Tobacco Use Types Packs/Day Years Used Date Smoking Tobacco: Never Assessed Comments Unknown Sex and Gender Information Value Date Recorded Sex Assigned at Not on file Legal Sex Female 4:08 AM FORK ASSEMBLER Gender Identity Not on file Sexual [...] R/O COVID-19 04/23/2020 04/23/2020 04/24/2020 6:22 AM FORK ASSEMBLER documented as of this encounter Care Teams Knitting Supervisor Relationship Specialty Start Date End Date Ok Blanco MD [address] [address] PCP - General Family Practice 11/20/18 documented as of this encounter
--- OUTSIDE RECORDS SUMMARY | 2024-11-11 11:07 | XMS_ITS | Encounter Summary ---
Author Organization [facility] Address [address] [place] [address] Care Team Providers Care Ios Software Engineer Name Role Phone Ok Blanco MD Primary Care Provider +1 [phone] Encounter Details Date Type Department Care Team (Latest Contact Info) Description 08/22/2006 Outpatient Historical [facility] [address] [place] [address] Zonia Ly, PSYCHOMETRICIAN [address] [place] [address] Acute Upper Respiratory Infections of Unspecified Site (Primary Dx) Social History Tobacco Use Types Packs/Day Years Used Date Smoking Tobacco: Never Assessed Comments Unknown Sex and Gender Information Value Date Recorded Sex Assigned at Not on file Legal Sex Female 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
--- NOTE | 2024-11-11 11:49 | W.ED.NAVMDI ---
HPI - Nausea/Vomiting/Diarrhea General: Chief complaint: Nausea/Vomiting/Diarrhea Stated complaint: headach,ears clogged and N Time Seen by Provider: 11/11/24 11:45 Source: patient Mode of arrival: ambulatory Limitations: no limitations History of Present Illness: 19-year-old female states that she had an epidural on the when she had her child states that she has been having headaches since then. States she did have a blood patch 3 days ago states it helped her day but she has had a headache again. States that it is postural to much worse when she sits up or stands up. When she lays flat her headache is improved had some vomiting she denies any fevers Associated nausea: Yes Associated symtoms: Reports headache(s) and nausea; Denies chest pain Related Data Home Medications ?Medication ?Instructions ?Recorded ?Confirmed acetaminophen 500 mg tablet 500 mg PO Q6H PRN Fever Or Pain 11/08/24 11/08/24 (Tylenol Extra Strength) ibuprofen 200 mg tablet (Advil) 400 mg PO Q6H PRN Fever Or Pain 11/08/24 11/08/24 vits no.133-ferrous 1 tab PO DAILY 11/08/24 11/08/24 fumarate 28 mg-folic acid 800 mcg tablet () Allergies Allergy/AdvReac Type Severity Reaction Status Date / Time No Known Allergies Allergy Verified 11/11/24 11:04 Review of Systems Const: Denies: fever(s), chills, body aches or change in appetite Eyes: Denies: blurry vision or eye discomfort ENMT: Denies: throat pain or dental pain Card: Denies: chest pain Resp: Denies: dyspnea GI: Reports: nausea and vomiting; Denies: abdominal pain or diarrhea Musc: Denies: neck pain or back pain Skin/Breast: Denies: rash Neuro: Reports: headache(s) PFSH ED PFSH: Medical History No pertinent past medical history neghx:htn,dm,thyroid,dvt/pe PCP: none Surgical History No pertinent past surgical history Family History Family/Other Breast cancer paternal aunt Denies family history of Colon cancer Ovarian cancer Diabetes Heart disease Hypertension Uterine cancer Thyroid disease Stroke Hyperchloremia Social History Smoking and tobacco/nicotine status: current every day tobacco/nicotine user Physical Exam Const: COMMON NORMALS: no acute distress, patient oriented x3 and healthy appearing HENMT: COMMON NORMALS: normocephalic and atraumatic HEAD & SCALP: normocephalic and atraumatic Eye: COMMON NORMALS: Equal, round and reactive pupils present and EOMs intact bilaterally PUPIL: Yes Equal, round and reactive pupils present Neck/C-Spine: COMMON NORMALS: full ROM and supple Chest: COMMONS NORMALS: normal inspection of the chest and normal palpation of entire chest wall Resp: COMMON NORMALS: normal respiratory effort, No retractions, No use of accessory muscles and clear to auscultation bilaterally AUSCULTATION: clear to auscultation bilaterally Cardio: COMMON NORMALS: regular rate, regular rhythm and No murmurs present (Cardio) RATE: regular rate RHYTHM: regular rhythm GI: COMMON NORMALS: Normal to inspection, nondistended, normoactive bowel sounds present, Soft to palpation, non-tender and no masses PALPATION: Yes Soft to palpation Extremity: COMMON NORMALS: normal to inspection and full ROM Neuro: COMMON NORMALS: patient oriented x3, moves all extremities and no focal motor deficits Psych: COMMON NORMALS: mental status grossly normal, Normal thought process present and cooperative THOUGHT PROCESS: Normal thought process present Skin: COMMON NORMALS: no rashes or lesions noted and no wounds GENERAL SKIN EXAM: no rashes or lesions noted Course Vital Signs: Vital signs: Vital Signs Temperature 97.4 F L 11/11/24 10:58 Pulse Rate 100 11/11/24 10:58 Blood Pressure 139/96 11/11/24 12:41 Pulse Oximetry 100 11/11/24 12:41 Oxygen Delivery Me thod Room Air 11/11/24 12:41 MDM - Nausea/Vomiting/Diarrhea Medical Decision Making Patient presents with a headache was likely postdural she is well-appearing here feels improved she is stable for discharge no signs of meningitis subarachnoid hemorrhage follow-up with PCP return if worsening. Medical Records I reviewed the patient's medical records. Lab Data I reviewed the patient's lab results. 11/11/24 12:12 11/11/24 12:12 Laboratory Results WBC 9.61 10^3/uL (4.5-13.0) 11/11/24 12:12 RBC 4.36 10^6/uL (3.85-5.65) 11/11/24 12:12 Hgb 10.30 g/dL (12.4-14.8) L 11/11/24 12:12 Hct 33.7 % (36-47) L 11/11/24 12:12 MCV 77.3 fl (85-98) L 11/11/24 12:12 MCH 23.6 pg (27-33) L 11/11/24 12:12 MCHC 30.6 g/dL (30-55) 11/11/24 12:12 RDW 14.1 % (12.1-15.1) 11/11/24 12:12 Plt Count 252 10^3/cmm (157-399) 11/11/24 12:12 MPV 10.3 fL (7.4-10.4) 11/11/24 12:12 Neut % (Auto) 85.9 % 11/11/24 12:12 Lymph % (Auto) 9.2 % 11/11/24 12:12 Thurston % (Auto) 3.4 % 11/11/24 12:12 Eos % (Auto) 0.9 % 11/11/24 12:12 Baso % (Auto) 0.2 % 11/11/24 12:12 Neut # (Auto) 8.25 10^3/uL (1.8-8.0) H 11/11/24 12:12 Lymph # (Auto) 0.9 10^3/uL (1.5-6.5) L 11/11/24 12:12 Thurston # (Auto) 0.3 10^3/uL (0.2-0.9) 11/11/24 12:12 Eos # (Auto) 0.1 10^3/uL (0.0-0.8) 11/11/24 12:12 Baso # (Auto) 0.0 10^3/uL (0.0-0.1) 11/11/24 12:12 Nucleated RBC % (auto) 0 % 11/11/24 12:12 Nucleated RBCs # 0.0 /100WBC 11/11/24 12:12 Sodium 143 mmol/L (136-145) 11/11/24 12:12 Potassium 3.4 mmol/L (3.5-5.1) L 11/11/24 12:12 Chloride 108 mmol/L (98-107) H 11/11/24 12:12 Carbon Dioxide 20 mmol/L (22-29) L 11/11/24 12:12 Anion Gap 18.4 (5-19) 11/11/24 12:12 BUN 8 mg/dL (6-20) 11/11/24 12:12 Creatinine 0.6 mg/dL (0.5-0.9) 11/11/24 12:12 GFR Calculation 127.5 mL/min (90-130) 11/11/24 12:12 Glucose 84 mg/dL (65-115) 11/11/24 12:12 Calculated Osmolality 294 mOsm/kg (285-295) 11/11/24 12:12 Calcium 8.5 mg/dL (8.5-10.5) 11/11/24 12:12 Total Bilirubin 0.3 mg/dL (0.15-1.2) 11/11/24 12:12 AST 14 U/L (0-32) 11/11/24 12:12 ALT 17 U/L (0-33) 11/11/24 12:12 Alkaline Phosphatase 133 U/L (35-105) H 11/11/24 12:12 Total Protein 7.2 g/dL (6.6-8.7) 11/11/24 12:12 Albumin 3.6 g/dL (3.5-5.2) 11/11/24 12:12 Globulin 3.6 g/dL (1.3-4.6) 11/11/24 12:12 Lipase 26 U/L (13-60) 11/11/24 12:12 All radiology interpretation(s) finalized by discharge Discharge Plan Discharge Patient Disposition: Home Clinical Impression: Headache Condition: Stable Prescriptions: No Action acetaminophen [Tylenol Extra Strength] 500 mg Tablet 500 mg PO Q6H PRN (Reason: Fever Or Pain) ibuprofen [Advil] 200 mg Tablet 400 mg PO Q6H PRN (Reason: Fever Or Pain) 28-800 mg-mcg Tablet 1 tab PO DAILY Discharge Orders: Discharge ED (Routine); Ordered 11/11/24 Ordered By: Carie Mac Referrals: Jerri Murphy MD [Primary Care Provider, Family Practice] Discharge Diet: Advance as tolerated Discharge Activity: Resume usual activity Patient Instructions: Headache Print Language: Argentine Coding Level of Care Code ED Palliative Care Coordinator for Izabela Hall
[2024-11-11 12:23] LABS: Hematocrit 33.7 % (36-47); Hemoglobin 10.30 g/dL (12.4-14.8); Mean Corpuscular HGB Conc 30.6 g/dL (30-55); Mean Corpuscular Hemoglobin 23.6 pg (27-33); Mean Corpuscular Volume 77.3 fl (85-98); Nucleated Red Blood Cells % 0 %; Platelet Count 252 10^3/cmm (157-399); Red Blood Count 4.36 10^6/uL (3.85-5.65); White Blood Count 9.61 10^3/uL (4.5-13.0)
[2024-11-11] MEDS: metoclopramide 5 mg/mL SDV 2 mL 10 MG IVP (12:33)
[2024-11-11] MEDS: diphenhydrAMINE 50 mg/mL SDV 1mL IVP (12:33)
[2024-11-11 12:41] VITALS: BP 139/96; O2SAT 100
[2024-11-11 12:44] LABS: Alanine Aminotransferase 17 U/L (0-33); Albumin Level 3.6 g/dL (3.5-5.2); Alkaline Phosphatase 133 U/L (35-105); Anion Gap 18.4 (5-19); Aspartate Amino Transferase 14 U/L (0-32); Blood Urea Nitrogen 8 mg/dL (6-20); Calcium 8.5 mg/dL (8.5-10.5); Carbon Dioxide 20 mmol/L (22-29); Chloride 108 mmol/L (98-107); Creatinine Clr Calc Pharmacy 129.1584; Globulin 3.6 g/dL (1.3-4.6); Glucose 84 mg/dL (65-115); Lipase 26 U/L (13-60); Osmolality Calculated 294 mOsm/kg (285-295); Potassium 3.4 mmol/L (3.5-5.1); Sodium 143 mmol/L (136-145); Total Protein 7.2 g/dL (6.6-8.7)
[2024-11-11 13:06] VITALS: BP 127/92; O2SAT 100
== END 2024-11-11 13:33 | disposition home or self-care (01) ==
PROVIDERS: Emergency Provider Emergency Medicine; PCP Family Medicine
DX: R51.9 Headache, unspecified (principal); Z72.0 Tobacco use
CPT/HCPCS: 36415; 80053; 83690; 85025; 96361; 96374; 96375; 99284; J1200; J1885; J2765; J7030